=== PATIENT | female | born 1935 | race Caucasian/White ===

== ENCOUNTER → 2017-10-08 12:15 | Outpatient (CLI) | payer MEDICARE, SELFPAY ==
[2017-10-08 13:42] LABS: Erythrocyte Sedimentation Rate 18 MM/HR (0-20)
[2017-10-08 14:17] LABS: High Sensitivity CRP - Cardiac 4.5 mg/L (1.0-3.0)
== END ==
PROVIDERS: Family Provider Internal Medicine; PCP Internal Medicine; Visit Provider Ophthalmology
DX: M79.7 Fibromyalgia (principal); Z86.73 Personal history of transient ischemic attack (TIA), and cerebral infarction without residual deficits
CPT/HCPCS: 36415; 85651; 86140

== ENCOUNTER 2017-10-30 08:52 | Emergency (ER) | payer MEDICARE, SELFPAY ==
[2017-10-30 09:13] VITALS: BP 140/66; PULSE 59; RESP 13; TEMP 36.2; O2SAT 100
--- NOTE | 2017-10-30 09:31 | ED.LOWEXIN ---
HPI - Extremity Injury (Lower) General Chief Complaint: Extremity Injury, Lower Stated Complaint: pain in left hip/leg Time Seen by Provider: 10/30/17 09:16 Source: patient and family Mode of arrival: ambulatory Limitations: no limitations History of Present Illness HPI Narrative: Patient is an 82-year-old female who presents with left leg weakness. 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 Her left leg has progressively gotten much weak over over the last few weeks. This morning her knows that she needed help walking and she was holding on to things. All he saw her left arm looked funny this morning but now he does not see any difference. She has no other complaints no visual problems no upper extremity weakness. No difficulty speaking. She denies any injury or fall. Related Data Home Medications Medication Instructions Recorded Confirmed [CITRACAL W/D] 600 mg PO Q DAY #0 03/10/10 levothyroxine [Synthroid] 75 mcg PO 0600 #30 tab 09/01/16 metoclopramide HCl 5 mg PO BID #0 09/01/16 cholecalciferol (vitamin D3) 2,000 unit PO QDAY #0 12/09/16 [Vitamin D3] methylcellulose (laxative) PO HS #0 12/09/16 [Citrucel Sugar Free] multivitamin [Multiple Vitamins] 1 tab PO QDAY #0 12/09/16 vitamin B complex [B 1 tab PO QDAY #0 12/09/16 Complex-Vitamin B12] Previous Rx's Medication Instructions Recorded aspirin 325 mg PO QDAY #30 tab 09/02/16 Allergies Allergy/AdvReac Type Severity Reaction Status Date / Time iodine Allergy Severe FLUSHED, Unverified 08/25/17 12:55 HOT codeine AdvReac Severe RAPID Unverified 08/25/17 12:55 HEARTRATE/CHEST PAIN ciprofloxacin [From CIPRO] AdvReac Unknown NAUSEA/VOMI Unverified 08/25/17 12:55 TING Review of Systems Review of Systems All systems reviewed & are unremarkable except as noted in HPI and below Constitutional Denies chills, Denies fever(s), Denies lethargy and Reports weakness Cardiovascular Denies dyspnea and Denies dyspnea on exertion Respiratory Denies cough, Denies dyspnea, Denies dyspnea on exertion and Denies wheezing Gastrointestinal Gastrointestinal: Denies abdominal pain, Denies change in bowel habits, Denies diarrhea, Denies nausea and Denies vomiting Musculoskeletal Reports system reviewed and no additional complaints, except as docu and Reports as per HPI Integumentary/Breasts Denies pruritus, Denies erythema, Denies rash and Denies wounds Neurologic Reports as per HPI, Denies confusion, Denies memory loss and Reports weakness Psychiatric Denies confusion and Denies memory loss Allergic/Immunologic Denies wheezing Exam Initial Vital Signs Initial Vital Signs: Vital Signs Temperature 97.2 F L 10/30/17 09:13 Pulse Rate 59 L 10/30/17 09:13 Respiratory Rate 13 10/30/17 09:13 Blood Pressure 140/66 H 10/30/17 09:13 Pulse Oximetry 100 10/30/17 09:13 Const General: cooperative and healthy appearing Nutritional Appearance: average body habitus Orientation: alert and awake Neck Neck: normal visual inspection, trachea midline, No lymphadenopathy, No midline deformity and No JVD Lymphatic: No lymphedema Chest Chest: normal inspection of the chest Resp Effort & Inspection: normal respiratory effort, able to speak in complete sentences, no respiratory distress and no use of accessory muscles Auscultation: clear to auscultation bilaterally, no rales, no rhonchi and no wheezes Cardio Rate: regular rate Rhythm: regular rhythm Heart Sounds: no click, no gallops, no murmurs and no rubs Pulses: normal peripheral pulses GI Inspection: non-distended Palpation: soft, no hepatosplenomegaly, No guarding, No pulsatile mass and No tender Auscultation: normal bowel sounds Skin General: no rashes or lesions noted, No jaundice and No petechiae Neuro General: alert, awake and oriented x3 Cranial Nerves: CN's II-XI intact bilaterally Cognition: normal cognition Speech: speech normal Motor: strength abnormal (left leg falls to bed) Coordination: [id number] test normal Extrem General: full ROM, no clubbing, cyanosis or edema, no pedal edema and no calf tenderness Left lower extremity: normal to inspection, full ROM and normal capillary refill; hip/thigh not examined, knee not examined, lower leg not examined, ankle not examined and foot not examined Scores NIH Stroke Scale Level of Conciousness: Alert, keenly responsive Ask month/age: Answers both questions correctly. Open/close eyes, close hand: Performs both tasks correctly Best gaze horizontal: Normal Visual martins: No visual loss Facial palsy: Normal symetrical movement Left arm drift: No drift for full 10 sec Right arm drift: No drift for full 10 sec Left leg drift: Drifts down, not to bed Right leg drift: No drift for full 10 sec Limb ataxia: Absent Sensory on face/arms/legs: Normal, no sensory loss Best language: No aphasia, normal Dysarthria: Normal Extinction or inattention: No abnormality Total NIH Stroke scale score: 1 Course Orders Ordered: ED Orders 10/30/17 09:57 EKG-12 Lead Stat 10/30/17 09:59 CT head/brain wo con Stat 10/30/17 10:20 Complete Blood Count AUTO DIFF Stat Comprehensive Metabolic Panel Stat Troponin with CK Cardiac Panel Stat Discontinued Medications Sodium Chloride (Normal Saline 0.9%) 1,000 mls @ 1,000 mls/hr IV BOLUS ONE Stop: 10/30/17 10:56 Last Infusion: 10/30/17 12:39 Dose: 0 mls/hr Admin: 10/30/17 11:27 Dose: 1,000 mls/hr Vital Signs - 8 hr 10/30/17 11:08 10/30/17 11:42 10/30/17 12:36 Pulse Rate 58 L 55 L Respiratory Rate 13 16 16 Blood Pressure Blood Pressure [Left Arm] 135/50 H 126/54 H Pulse Oximetry 96 97 97 10/30/17 12:40 Pulse Rate 53 L Respiratory Rate 18 Blood Pressure 141/74 H Blood Pressure [Left Arm] Pulse Oximetry 98 MDM - Extremity Injury (Lower) Lab Data Attestation: I reviewed the patient's lab results. Result diagrams: 10/30/17 10:20 10/30/17 10:20 Lab Results 10/30/17 10/30/17 Range/Units 10:20 10:20 WBC 6.6 (4.5-11.0) X10^3/uL RBC 4.11 (4.0-5.2) X10^6/uL Hgb 12.0 (12.0-16.0) g/dL Hct 35.6 L (36-46) % MCV 86.6 (80-100) fL MCH 29.1 (26-34) PG MCHC 33.6 (30-36) % RDW 13.5 (11.6-14.8) % Plt Count 220 (150-400) X10^3/uL Neut % (Auto) 56.6 (50-75) % Lymph % (Auto) 30.2 (25-40) % [place] % (Auto) 9.6 (3-14) % Eos % (Auto) 2.6 (2-4) % Baso % (Auto) 1.0 (0-2) % Neut # (Auto) 3800 (6054-4716) /uL Sodium 141 (137-145) mmol/L Potassium 4.3 (3.4-5.1) mmol/L Chloride 101 (98-107) mmol/L Carbon Dioxide 31 (22-32) mmol/L BUN 29 H (7-17) mg/dL Creatinine 0.90 (0.52-1.04) mg/dL Estimated GFR > 60.0 (>60) mL/min BUN/Creatinine Ratio 32.2 H (6-22) Glucose 94 (80-110) mg/dL Calcium 9.4 (8.4-10.2) mg/dL Total Bilirubin 0.4 (0.2-1.3) mg/dL AST 24 (14-36) IU/L ALT 25 (9-52) IU/L Alkaline Phosphatase 27 L (38-126) U/L Total Creatine Kinase 29 L (30-135) U/L Troponin I < 0.012 (0.01-0.034) ng/mL Total Protein 6.4 (6.3-8.2) g/dL Albumin 3.9 (3.5-5.0) g/dL Globulin 2.5 (1.7-4.1) g/dL Albumin/Globulin Ratio 1.6 (1.0-2.8) Imaging Data CT scan - head: Radiologist's impression: PROCEDURE: CT HEAD/BRAIN WO CON INDICATIONS: Left leg weakness, progressively getting worse history of cva. TECHNIQUE: Noncontrast 4.5 mm thick angled axial sections acquired from the foramen magnum to the vertex, with coronal and sagittal reformats. For radiation dose reduction, the following was used: automated exposure control, adjustment of mA and/or kV according to patient size. COMPARISON: [facility], CT, HEAD WITHOUT CONTRAST, 02/23/2017, 12:14. [facility], MR, STROKE PROTOCOL, 09/01/2016, 15:54. [facility], CT, HEAD WITHOUT CONTRAST, 09/01/2016, 12:48. FINDINGS: Image quality: Excellent. CSF spaces: Basal cisterns are patent. No extra-axial fluid collections. The ventricles are symmetric in size and shape. Brain: No intracranial bleeds or masses. There is cerebral volume loss for age, with resultant ventricular and sulcal prominence. There are periventricular and deep white matter chronic small vessel ischemic changes. There is intracranial internal carotid artery and vertebral artery atherosclerosis. Skull and face: Calvarium and visualized facial bones appear intact, without suspicious lesions. Sinuses: Visualized sinuses and mastoids are clear. IMPRESSION: No acute intracranial disease process. Dictated by: Juli Pearson MD, PhD on 10/30/2017 at 10:51 ECG Data Attestation: I personally reviewed and interpreted this ECG as follows: Prior ECG tracings: available for review Interpretation: Normal sinus rhythm rate 54 with T-wave inversions noted in lead 3 similar to previous no acute ST changes normal intervals MDM Narrative Medical decision making narrative: Patient has no acute or focal deficits. This seems to be her left leg progressively getting weaker. No electrolyte abnormalities or sign of infection. She is ambulatory. We discussed how she may need assistance with a cane or walker. Discharge Plan Departure Patient Disposition: Home, Self-Care Clinical Impression: Left leg weakness Discharge Date/Time: 10/30/17 12:40 Interventions: ED Discharge Assessment Last Done: 10/30/17 12:40 Instructions: How to Prevent Falls, DI for Muscle Weakness Activity Restrictions/Additional Instructions: *You have been diagnosed with left leg weakness *What to do: Blood work in CT do not show abnormality. This is likely just progression of left leg weakness. Recommend using a cane or a walker with ambulation *Continue to take medications as directed *Follow up with your primary care provider in 2-3 days *Return to ER if you should have any new, worsening or concerning symptoms Prescriptions: No Action [CITRACAL W/D] 600 mg PO Q DAY Qty: 0 RF: 0 metoclopramide HCl 5 MG tablet 5 mg PO BID Qty: 0 RF: 0 levothyroxine [Synthroid] 75 MCG tablet 75 mcg PO 0600 Qty: 30 RF: 0 aspirin 325 MG tablet,delayed release (DR/EC) 325 mg PO QDAY Qty: 30 RF: 0 cholecalciferol (vitamin D3) [Vitamin D3] 1,000 UNIT tablet 2,000 unit PO QDAY Qty: 0 RF: 0 multivitamin [Multiple Vitamins] 1 EACH tablet 1 tab PO QDAY Qty: 0 RF: 0 vitamin B complex [B Complex-Vitamin B12] 1 EACH tablet 1 tab PO QDAY Qty: 0 RF: 0 methylcellulose (laxative) [Citrucel Sugar Free] 479 GM powder PO HS Qty: 0 RF: 0 Referrals: Zachery Razo MD [Primary Care Provider] -
--- NOTE | 2017-10-30 09:59 | DI.CT.S_ITS ---
PROCEDURE: CT HEAD/BRAIN WO CON INDICATIONS: Left leg weakness, progressively getting worse history of cva. TECHNIQUE: Noncontrast 4.5 mm thick angled axial sections acquired from the foramen magnum to the vertex, with coronal and sagittal reformats. For radiation dose reduction, the following was used: automated exposure control, adjustment of mA and/or kV according to patient size. COMPARISON: [facility], CT, HEAD WITHOUT CONTRAST, 02/23/2017, 12:14. [facility], MR, STROKE PROTOCOL, 09/01/2016, 15:54. [facility], CT, HEAD WITHOUT CONTRAST, 09/01/2016, 12:48. FINDINGS: Image quality: Excellent. CSF spaces: Basal cisterns are patent. No extra-axial fluid collections. The ventricles are symmetric in size and shape. Brain: No intracranial bleeds or masses. There is cerebral volume loss for age, with resultant ventricular and sulcal prominence. There are periventricular and deep white matter chronic small vessel ischemic changes. There is intracranial internal carotid artery and vertebral artery atherosclerosis. Skull and face: Calvarium and visualized facial bones appear intact, without suspicious lesions. Sinuses: Visualized sinuses and mastoids are clear. IMPRESSION: No acute intracranial disease process. Dictated by: Juli Pearson MD, PhD on 10/30/2017 at 10:51 Approved by: Juli Pearson MD, PhD on 10/30/2017 at 10:54
[2017-10-30 10:36] LABS: Add Manual Diff / Slide Review NO; Eosinophils Percent Auto 2.6 % (2-4); Hematocrit 35.6 % (36-46); Lymphocytes Percent Auto 30.2 % (25-40); Mean Corpuscular HGB Conc 33.6 % (30-36); Mean Corpuscular Hemoglobin 29.1 PG (26-34); Mean Corpuscular Volume 86.6 fL (80-100); Monocytes Percent Auto 9.6 % (3-14); Neutrophils Absolute Auto 3800 /uL (3000-5900); Neutrophils Percent Auto 56.6 % (50-75); Platelet Count 220 X10^3/uL (150-400); Red Blood Cell Count 4.11 X10^6/uL (4.0-5.2); Red Cell Distribution Width 13.5 % (11.6-14.8); White Blood Cell Count 6.6 X10^3/uL (4.5-11.0)
[2017-10-30 10:42] LABS: Alanine Aminotransferase 25 IU/L (9-52); Albumin 3.9 g/dL (3.5-5.0); Albumin Globulin Ratio 1.6 (1.0-2.8); Alkaline Phosphatase 27 U/L (38-126); Aspartate Aminotransferase 24 IU/L (14-36); BUN Creatinine Ratio 32.2 (6-22); Bilirubin Total 0.4 mg/dL (0.2-1.3); Blood Urea Nitrogen 29 mg/dL (7-17); Calcium 9.4 mg/dL (8.4-10.2); Carbon Dioxide 31 mmol/L (22-32); Chloride 101 mmol/L (98-107); Creatine Kinase 29 U/L (30-135); Estimated Glomerular Filt Rate > 60.0 mL/min (>60); Globulin 2.5 g/dL (1.7-4.1); Glucose 94 mg/dL (80-110); HEMOLYSIS < 15 (0-50); Potassium 4.3 mmol/L (3.4-5.1); Sodium 141 mmol/L (137-145); Total Protein 6.4 g/dL (6.3-8.2)
[2017-10-30 10:54] LABS: Troponin I < 0.012 ng/mL (0.01-0.034)
[2017-10-30 11:08] VITALS: BP 135/50; PULSE 58; RESP 13; O2SAT 96
[2017-10-30] MEDS: SODIUM CHLORIDE 0.9% 1,000 ML 1000 ML IV (11:27)
[2017-10-30 11:42] VITALS: BP 126/54; PULSE 55; RESP 16; O2SAT 97
[2017-10-30 12:36] VITALS: RESP 16; O2SAT 97
[2017-10-30 12:40] VITALS: BP 141/74; PULSE 53; RESP 18; O2SAT 98
== END 2017-10-30 12:40 | disposition home or self-care (01) ==
PROVIDERS: Emergency Provider Emergency Medicine; Family Provider Internal Medicine; PCP Internal Medicine
DX: R29.898 Other symptoms and signs involving the musculoskeletal system (principal)
CPT/HCPCS: 36591; 70450; 80053; 81003; 82550; 82553; 84484; 85025; 93005; 96360; 99283; 99285

== ENCOUNTER → 2017-11-09 14:01 | Outpatient (CLI) | payer MEDICARE, SELFPAY ==
[2017-11-09 15:07] LABS: Add Manual Diff / Slide Review NO; Basophils Percent Auto 0.9 % (0-2); Eosinophils Percent Auto 2.1 % (2-4); Hemoglobin 11.9 g/dL (12.0-16.0); Mean Corpuscular Hemoglobin 29.4 PG (26-34); Mean Corpuscular Volume 86.5 fL (80-100); Monocytes Percent Auto 8.2 % (3-14); Neutrophils Absolute Auto 4600 /uL (3000-5900); Neutrophils Percent Auto 58.8 % (50-75); Platelet Count 239 X10^3/uL (150-400); Red Blood Cell Count 4.04 X10^6/uL (4.0-5.2); Red Cell Distribution Width 13.3 % (11.6-14.8); White Blood Cell Count 7.7 X10^3/uL (4.5-11.0)
[2017-11-09 15:27] LABS: Alanine Aminotransferase 28 IU/L (9-52); Albumin 4.1 g/dL (3.5-5.0); Albumin Globulin Ratio 1.5 (1.0-2.8); Alkaline Phosphatase 32 U/L (38-126); Aspartate Aminotransferase 27 IU/L (14-36); BUN Creatinine Ratio 21.7 (6-22); Bilirubin Total 0.3 mg/dL (0.2-1.3); Blood Urea Nitrogen 26 mg/dL (7-17); Calcium 9.7 mg/dL (8.4-10.2); Carbon Dioxide 29 mmol/L (22-32); Chloride 102 mmol/L (98-107); Estimated Glomerular Filt Rate 43.2 mL/min (>60); Globulin 2.7 g/dL (1.7-4.1); Glucose 110 mg/dL (80-110); HEMOLYSIS < 15 (0-50); Iron 61 ug/dL (37-170); Potassium 4.2 mmol/L (3.4-5.1); Sodium 141 mmol/L (137-145); Total Protein 6.8 g/dL (6.3-8.2)
[2017-11-09 15:38] LABS: Percent Iron Saturation 17 % (15-50); Total Iron Binding Capacity 357 ug/dL (265-497); Transferrin 296 mg/dL (206-381)
== END ==
PROVIDERS: Family Provider Internal Medicine; PCP Internal Medicine; Visit Provider Internal Medicine
DX: F32.9 Major depressive disorder, single episode, unspecified (principal); D64.9 Anemia, unspecified; E78.00 Pure hypercholesterolemia, unspecified; E03.9 Hypothyroidism, unspecified
CPT/HCPCS: 36415; 80053; 83540; 83550; 84443; 85025

== ENCOUNTER → 2017-11-12 11:06 | Outpatient (CLI) | payer MEDICARE, SELFPAY ==
--- NOTE | 2017-11-12 | DI.CT.S_ITS ---
PROCEDURE: CT LUMBAR SPINE WO CON INDICATIONS: LOW BACK PAIN TECHNIQUE: Noncontrast 3 mm thick sections acquired from the T12 level to the sacrum. Sagittal and coronal reformats were constructed. For radiation dose reduction, the following was used: automated exposure control. COMPARISON: [facility], CR, L-SPINE MINIMUM 4 VIEWS, 12/21/2011, 14:36. [facility], MR, L-SPINE WITHOUT CONTRAST, 02/14/2013, 17:13. [facility], CR, L-SPINE MINIMUM 4 VIEWS, 03/13/2016, 12:04. [facility], MR, L-SPINE WITHOUT CONTRAST, 03/04/2016, 16:46. [facility], CR, L-SPINE 2-3 VIEWS, 02/25/2016, 12:09. FINDINGS: Image quality: Excellent. Bones: There is trace L2-L3, L3-L4 and L4-L5 retrolisthesis. Postprocedural changes compatible with L3 percutaneous vertebroplasty noted. Postsurgical changes compatible with prior right L5-S1 laminotomy noted. Postsurgical changes compatible with L5-S1 effusion noted. L5-S1 posterior fixation hardware is intact. No lucency is identified at the bone hardware interface. No acute vertebral body compression fractures. No suspicious lytic or blastic bony lesions. Central spinal caliber is of normal overall caliber. No pars defects. T12-L1: Slight loss of disc height. Mild, diffuse disc bulge. Mild bilateral facet hypertrophy. Mild narrowing of the central canal. No neural foraminal narrowing. No definite neural impingement. L1-L2: Slight loss of disc height. Mild, diffuse disc bulge. Right central disc protrusion. Mild bilateral facet hypertrophy. Mild to moderate narrowing of the central canal. No neural foraminal narrowing. No definite neural impingement. L2-L3: Loss of disc height. Vacuum disc phenomenon. Moderate, diffuse disc bulge. Mild facet hypertrophy. Moderate narrowing of the central canal. Moderate right and mild left neural foraminal narrowing. No definite neural impingement. L3-L4: Disc height is normal. Moderate, diffuse disc bulge. Mild to moderate facet and mild ligamentum flavum hypertrophy. Moderate narrowing of the central canal. Moderate right and mild left neural foraminal narrowing. No definite neural impingement. L4-L5: Disc height is normal. Moderate, diffuse disc bulge. Moderate facet and moderate ligamentum flavum hypertrophy. Moderate to severe narrowing of the central canal. Moderate to severe right and severe left neural foraminal narrowing with slight flattened deformity of the exiting left L4 nerve root. L5-S1: Status post fusion. Moderate bilateral facet hypertrophy. Moderate narrowing of the central canal. Moderate right and mild left neural foraminal narrowing. No definite neural impingement. Soft tissues: No retroperitoneal masses or hematomas. Visualized aorta is normal in caliber. Scattered atherosclerotic calcifications involving the abdominal and pelvic vasculature. Partially visualized and only partially characterized right renal cyst. IMPRESSION: 1. Postsurgical changes. 2. Multilevel degenerative disc disease. 3. Multilevel facet arthropathy. 4. Moderate to severe L4-L5 central canal narrowing. Moderate L2-L3, L3-L4 and L5-S1 central canal narrowing. Mild to moderate L1-L2 central canal narrowing. Mild T12-L1 central canal narrowing. 5. Moderate to severe right and severe left L4-L5 neural foraminal narrowing. Moderate right and mild left L2-L3, L3-L4 and L5-S1 neural foraminal narrowing. 5. Slight flattened deformity of the exiting left L4 nerve root secondary to neural foraminal narrowing. Please correlate with clinical data. Dictated by: Juli Peasron MD, PhD on 11/12/2017 at 16:05 Approved by: Juli Pearson MD, PhD on 11/12/2017 at 16:13
== END ==
PROVIDERS: Family Provider Internal Medicine; PCP Internal Medicine; Visit Provider Student in an Organized Health Care Education/Training Program
DX: M54.5 Low back pain (principal); M51.36 Other intervertebral disc degeneration, lumbar region; M47.816 Spondylosis without myelopathy or radiculopathy, lumbar region
CPT/HCPCS: 72131

== ENCOUNTER → 2017-12-01 12:42 | Outpatient (CLI) | payer MEDICARE, SELFPAY ==
--- NOTE | 2017-12-01 | DI.MRI.S_ITS ---
PROCEDURE: MR LUMBAR SPINE WO CON INDICATIONS: ABNORMALITIES OF GAIT AND MOBILITY TECHNIQUE: Noncontrast sagittal T1 spin echo and T2 fast echo, sagittal STIR, axial T1 and T2 fast spin echo through the lumbar spine. In cases with scoliosis, additional coronal T2 fast spin echo may be performed. COMPARISON: [facility], MR, L-SPINE WITHOUT CONTRAST, 03/04/2016, 16:46. [facility], CT, CT LUMBAR SPINE WO CON, 11/12/2017, 11:09. [facility], CR, L-SPINE MINIMUM 4 VIEWS, 03/13/2016, 12:04. [facility], CR, L-SPINE 2-3 VIEWS, 02/25/2016, 12:09. FINDINGS: Image quality: Excellent. Alignment and Curvature: The same numbering system that was employed on prior CT report will be employed on the current examination. There is loss of normal lumbar lordosis. There is mild grade 1 retrolisthesis of L2 on L3 and L4 on L5. Bone Marrow: Marrow is of normal overall signal. No acute vertebral body compression fractures. Bony cement injection at L3 has been performed. L5-S1 fusion has been performed with paired posterior rods and pedicle screws. There is mild reactive signal within the endplates adjacent to the T12-L1, L1-L2, and L2-L3 intervertebral discs. Spinal Cord: Conus medullaris terminates at the mid L1 level. Visualized cord demonstrates normal signal and size. Paraspinous Soft Tissues: No paravertebral masses. T12-L1: Moderate disc desiccation and mild diffuse disc bulge. Mild facet hypertrophy and ligamentum flavum hypertrophy bilaterally. Mild canal stenosis. No foraminal stenosis. No change. L1-L2: Moderate disc desiccation and mild diffuse disc bulge with small superimposed right paracentral protrusion. Bilateral facet and ligamentum flavum hypertrophy. Mild canal stenosis. No foraminal stenosis. No change. L2-L3: Moderate disc height loss and desiccation, as well as moderate diffuse disc bulge. Mild facet and ligamentum hypertrophy. Epidural lipomatosis. Increased, moderate canal stenosis. Mild foraminal stenosis bilaterally. L3-L4: Moderate disc desiccation and mild diffuse disc bulge. Mild facet hypertrophy bilaterally. Mild canal stenosis. Mild bilateral foraminal stenosis no change. L4-L5: Moderate disc desiccation and moderate diffuse disc bulge. Moderate facet and ligamentum flavum hypertrophy bilaterally. Mild canal stenosis. Moderate foraminal stenosis bilaterally. No change. L5-S1: Status post fusion. Bilateral facet hypertrophy. No significant canal stenosis. Mild bilateral foraminal stenosis. No change. IMPRESSION: 1. Multilevel degenerative disc and facet disease, as well as epidural lipomatosis and ligamentum flavum hypertrophy. 2. Postsurgical sequelae L5-S1, with no evidence of recurrent canal stenosis, and no change in mild bilateral foraminal stenosis at L5-S1. 3. Increased, moderate canal stenosis at L2-L3. 4. Otherwise, no significant change compared to 10.19.16. Dictated by: Kimi Kapoor M.D. on 12/01/2017 at 14:20 Approved by: Kimi Kapoor M.D. on 12/01/2017 at 14:36
== END ==
PROVIDERS: Family Provider Internal Medicine; PCP Internal Medicine; Visit Provider Student in an Organized Health Care Education/Training Program
DX: M51.36 Other intervertebral disc degeneration, lumbar region (principal); R26.89 Other abnormalities of gait and mobility; M48.07 Spinal stenosis, lumbosacral region; M48.061 Spinal stenosis, lumbar region without neurogenic claudication; Z98.1 Arthrodesis status
CPT/HCPCS: 72148

== ENCOUNTER → 2018-03-14 14:07 | Outpatient (CLI) | payer MEDICARE, SELFPAY ==
--- NOTE | 2018-03-14 14:11 | DI.RAD.S_ITS ---
PROCEDURE: XR FOOT LT MIN 3V INDICATIONS: LEFT FOOT PAIN TECHNIQUE: 3 views of the foot were acquired. COMPARISON: [facility], , FOOT 3V RIGHT, 08/12/2011, 9:35. FINDINGS: Bones: No fractures or dislocations. No suspicious bony lesions. Soft tissues: No tibiotalar joint effusion. Achilles tendon appears normal. IMPRESSION: No trauma found. Dictated by: Leonardo Mckeon M.D. on 03/14/2018 at 15:07 Approved by: Leonardo Mckeon M.D. on 03/14/2018 at 15:07
[2018-03-14 14:41] LABS: Add Manual Diff / Slide Review NO; Basophils Percent Auto 0.7 % (0-2); Eosinophils Percent Auto 2.1 % (2-4); Hematocrit 33.4 % (36-46); Hemoglobin 11.1 g/dL (12.0-16.0); Lymphocytes Percent Auto 25.4 % (25-40); Mean Corpuscular HGB Conc 33.3 % (30-36); Mean Corpuscular Hemoglobin 28.9 PG (26-34); Mean Corpuscular Volume 86.9 fL (80-100); Monocytes Percent Auto 7.2 % (3-14); Neutrophils Absolute Auto 5100 /uL (3000-5900); Neutrophils Percent Auto 64.6 % (50-75); Platelet Count 242 X10^3/uL (150-400); Red Blood Cell Count 3.84 X10^6/uL (4.0-5.2); Red Cell Distribution Width 13.4 % (11.6-14.8); White Blood Cell Count 7.8 X10^3/uL (4.5-11.0)
[2018-03-14 14:54] LABS: HEMOLYSIS < 15 (0-50); Iron 41 ug/dL (37-170)
[2018-03-14 15:05] LABS: Percent Iron Saturation 13 % (15-50); Total Iron Binding Capacity 315 ug/dL (265-497); Transferrin 269 mg/dL (206-381)
[2018-03-14 15:06] LABS: Erythrocyte Sedimentation Rate 15 MM/HR (0-20)
== END ==
PROVIDERS: Family Provider Internal Medicine; PCP Internal Medicine; Visit Provider Internal Medicine
DX: M15.0 Primary generalized (osteo)arthritis (principal); M79.672 Pain in left foot; D64.9 Anemia, unspecified
CPT/HCPCS: 36415; 73630; 83540; 83550; 85025; 85651

== ENCOUNTER → 2018-08-15 15:00 | Outpatient (CLI) | payer MEDICARE, SELFPAY ==
--- NOTE | 2018-08-15 | DI.RAD.S_ITS ---
PROCEDURE: XR HIP W PEL IF DONE LT MIN 4V INDICATIONS: LEFT HIP PAIN TECHNIQUE: AP pelvis with lateral view(s) of the left and right hip(s). COMPARISON: [facility], , HIPBILAT 3TO4V W PEL IF PERFD, 03/01/2017, 9:54. FINDINGS: Bones: No fractures or dislocations. Pelvic ring appears intact. No suspicious bony lesions. Bilateral moderate hip joint degeneration which appears unchanged since 03/01/17. Lower lumbar spinal fixation hardware as before. Soft tissues: The visualized bowel gas pattern is normal. No suspicious soft tissue calcifications. IMPRESSION: Unchanged bilateral moderate hip joint degeneration since 03/01/17 Dictated by: Denis Hwang M.D. on 08/15/2018 at 16:28 Approved by: Denis Hwang M.D. on 08/15/2018 at 16:30
== END ==
PROVIDERS: PCP Internal Medicine; Visit Provider Internal Medicine
DX: M25.552 Pain in left hip (principal); M16.0 Bilateral primary osteoarthritis of hip
CPT/HCPCS: 73522

== ENCOUNTER → 2018-09-22 10:47 | Outpatient (CLI) | payer MEDICARE, SELFPAY ==
--- NOTE | 2018-09-22 | DI.RAD.S_ITS ---
PROCEDURE: XR CHEST 2V INDICATIONS: Acute bronchitis, unspecified TECHNIQUE: 2 views of the chest were acquired. COMPARISON: [facility], , CHEST 1 VIEW, 02/23/2017, 12:05. FINDINGS: Surgical changes and devices: None. Lungs and pleura: Lungs are clear. No pleural effusions or pneumothorax. Mediastinum: Mediastinal contours are normal. Heart size is normal. Bones and chest wall: No suspicious bony abnormalities. Soft tissues appear unremarkable. IMPRESSION: No acute disease Dictated by: Denis Hwang M.D. on 09/22/2018 at 12:20 Approved by: Denis Hwang M.D. on 09/22/2018 at 12:21
== END ==
PROVIDERS: PCP Internal Medicine; Visit Provider Internal Medicine
DX: J20.9 Acute bronchitis, unspecified (principal)
CPT/HCPCS: 71046

== ENCOUNTER → 2018-09-27 10:59 | Outpatient (CLI) | payer MEDICARE, SELFPAY ==
--- NOTE | 2018-09-27 | DI.MG.S_ITS ---
BILATERAL DIGITAL SCREENING MAMMOGRAM 3D/2D WITH CAD: 09/27/2018 CLINICAL: Routine screening. Comparison is made to exams dated: 09/06/2014 mammogram, 08/26/2011 mammogram, and 05/23/2004 mammogram - [facility]. There are scattered fibroglandular elements in both breasts. Current study was also evaluated with a Computer Aided Detection (CAD) system. There are benign calcifications in both breasts. No significant masses, calcifications, or other findings are seen in either breast. There has been no significant interval change. IMPRESSION: There is no mammographic evidence of malignancy. A 1 year screening mammogram is recommended. This exam was interpreted at Station ID: [id number]. NOTE: For mammograms, a report in lay terms will be sent to the patient. Approximately 15% of breast malignancies will not be visualized mammographically. In the management of a palpable breast mass, a negative mammogram must not discourage biopsy of a clinically suspicious lesion. Electronically Signed By: Lenny sánchez/yessenia:09/27/2018 18:12:50 letter sent: Normal Exam ACR BI-RADS Category 2: Benign Finding(s) [id number]
== END ==
PROVIDERS: PCP Internal Medicine; Visit Provider Internal Medicine
DX: Z12.31 Encounter for screening mammogram for malignant neoplasm of breast (principal)
CPT/HCPCS: 77063; 77067

== ENCOUNTER → 2018-11-12 14:38 | Outpatient (CLI) | payer MEDICARE, SELFPAY ==
--- NOTE | 2018-11-12 | DI.RAD.S_ITS ---
PROCEDURE: XR FOOT LT MIN 3V INDICATIONS: left foot pain no trauma TECHNIQUE: 3 views of the foot were acquired. COMPARISON: [facility], CR, XR FOOT LT MIN 3V, 03/14/2018, 13:48. FINDINGS: Bones: No fractures or dislocations. No suspicious bony lesions. Severe degenerative changes of the midfoot joints are present with prominent joint space narrowing and subchondral sclerosis. There moderate degenerative changes of the first metatarsophalangeal joint. There is a small Achilles spur. Soft tissues: No tibiotalar joint effusion. Achilles tendon appears normal in thickness. 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 Dictated by: Avelino oRsen M.D. on 11/12/2018 at 14:58 Approved by: Avelino Rosen M.D. on 11/12/2018 at 14:59
== END ==
PROVIDERS: PCP Internal Medicine; Visit Provider Internal Medicine
DX: M79.672 Pain in left foot (principal); M19.072 Primary osteoarthritis, left ankle and foot
CPT/HCPCS: 73630

== ENCOUNTER → 2018-12-15 16:46 | Outpatient (CLI) | payer MEDICARE, SELFPAY ==
[2018-12-15 17:25] LABS: Add Manual Diff / Slide Review NO; Basophils Absolute Auto 100 /uL (0-100); Basophils Percent Auto 0.7 % (0-2); Eosinophils Absolute Auto 200 /uL (0-450); Eosinophils Percent Auto 2.1 % (2-4); Hematocrit 32.6 % (36-46); Hemoglobin 10.9 g/dL (12.0-16.0); Lymphocytes Absolute Auto 2300 /uL (1100-4500); Lymphocytes Percent Auto 29.3 % (25-40); Mean Corpuscular HGB Conc 33.5 % (30-36); Mean Corpuscular Hemoglobin 28.8 PG (26-34); Mean Corpuscular Volume 86.1 fL (80-100); Monocytes Absolute Auto 700 /uL (0-900); Monocytes Percent Auto 8.7 % (3-14); Neutrophils Absolute Auto 4600 /uL (1500-7000); Neutrophils Percent Auto 59.2 % (50-75); Platelet Count 249 X10^3/uL (150-400); Red Blood Cell Count 3.78 X10^6/uL (4.0-5.2); White Blood Cell Count 7.8 X10^3/uL (4.5-11.0)
[2018-12-15 17:46] LABS: Alanine Aminotransferase 20 IU/L (9-52); Albumin 3.8 g/dL (3.5-5.0); Albumin Globulin Ratio 1.7 (1.0-2.8); Alkaline Phosphatase 31 U/L (38-126); Aspartate Aminotransferase 26 IU/L (14-36); Bilirubin Total 0.3 mg/dL (0.2-1.3); Blood Urea Nitrogen 33 mg/dL (7-17); Calcium 9.6 mg/dL (8.4-10.2); Carbon Dioxide 29 mmol/L (22-32); Chloride 108 mmol/L (98-107); Estimated Glomerular Filt Rate 47.7 mL/min (>60); Globulin 2.3 g/dL (1.7-4.1); Glucose 116 mg/dL (80-110); HEMOLYSIS < 15 (0-50); Potassium 4.9 mmol/L (3.4-5.1); Sodium 142 mmol/L (137-145); Total Protein 6.1 g/dL (6.3-8.2)
[2018-12-15 18:29] LABS: TSH w/ Reflex to FT4 2.78 uIU/mL (0.47-4.68)
== END ==
PROVIDERS: PCP Internal Medicine; Visit Provider Internal Medicine
DX: M15.0 Primary generalized (osteo)arthritis (principal); E03.9 Hypothyroidism, unspecified; D64.9 Anemia, unspecified
CPT/HCPCS: 36415; 80053; 84443; 85025

== ENCOUNTER → 2019-01-03 15:02 | Outpatient (CLI) | payer MEDICARE, SELFPAY ==
--- NOTE | 2019-01-03 | DI.US.S_ITS ---
PROCEDURE: US PERIPH VENOUS LOW EXTREM RT INDICATIONS: RIGHT LEG SWELLING AND PAIN TECHNIQUE: Real-time imaging, as well as color and pulse Doppler interrogation, were performed of the lower extremity deep veins from the inguinal ligament to the popliteal fossa. COMPARISON: None. FINDINGS: The common femoral, femoral and popliteal veins are normally compressible, and free of intraluminal thrombus. Color and pulse Doppler demonstrate normal phasic intraluminal flow. There is normal augmentation response to distal compression maneuver. A presumed right calf hematoma measuring 18.2 x 2.7 x 1.0 cm IMPRESSION: No evidence of deep venous thrombosis. Right calf hematoma as above. Dictated by: Denis Hwang M.D. on 01/03/2019 at 17:18 Approved by: Denis Hwang M.D. on 01/03/2019 at 17:18
== END ==
PROVIDERS: PCP Internal Medicine; Visit Provider Internal Medicine
DX: M79.89 Other specified soft tissue disorders (principal); S80.11XA Contusion of right lower leg, initial encounter; M79.604 Pain in right leg
CPT/HCPCS: 93971

== ENCOUNTER → 2019-02-09 14:50 | Outpatient (CLI) | payer MEDICARE, SELFPAY ==
[2019-02-09 15:38] LABS: Add Manual Diff / Slide Review NO; Basophils Absolute Auto 100 /uL (0-100); Basophils Percent Auto 0.9 % (0-2); Eosinophils Absolute Auto 200 /uL (0-450); Eosinophils Percent Auto 2.1 % (2-4); Hematocrit 34.4 % (36-46); Hemoglobin 11.7 g/dL (12.0-16.0); Lymphocytes Absolute Auto 2400 /uL (1100-4500); Lymphocytes Percent Auto 29.6 % (25-40); Mean Corpuscular HGB Conc 34.1 % (30-36); Mean Corpuscular Hemoglobin 29.1 PG (26-34); Mean Corpuscular Volume 85.1 fL (80-100); Monocytes Absolute Auto 700 /uL (0-900); Monocytes Percent Auto 8.6 % (3-14); Neutrophils Absolute Auto 4900 /uL (1500-7000); Neutrophils Percent Auto 58.8 % (50-75); Platelet Count 241 X10^3/uL (150-400); Red Blood Cell Count 4.04 X10^6/uL (4.0-5.2); White Blood Cell Count 8.3 X10^3/uL (4.5-11.0)
[2019-02-09 16:00] LABS: HEMOLYSIS < 15 (0-50); Iron 66 ug/dL (37-170)
[2019-02-09 16:04] LABS: Reticulocyte Count, Percent 1.3 % (1.06-2.63)
[2019-02-09 16:10] LABS: Percent Iron Saturation 19 % (15-50); Total Iron Binding Capacity 350 ug/dL (265-497); Transferrin 288 mg/dL (206-381)
== END ==
PROVIDERS: PCP Internal Medicine; Visit Provider Internal Medicine
DX: D64.9 Anemia, unspecified (principal)
CPT/HCPCS: 36415; 83540; 83550; 85025; 85045

== ENCOUNTER → 2019-04-20 09:25 | Outpatient (CLI) | payer MEDICARE, SELFPAY ==
[2019-04-20 10:40] LABS: Add Manual Diff / Slide Review NO; Basophils Absolute Auto 0 /uL (0-100); Basophils Percent Auto 0.5 % (0-2); Eosinophils Absolute Auto 300 /uL (0-450); Eosinophils Percent Auto 3.7 % (2-4); Hemoglobin 12.5 g/dL (12.0-16.0); Lymphocytes Absolute Auto 2100 /uL (1100-4500); Lymphocytes Percent Auto 26.6 % (25-40); Mean Corpuscular HGB Conc 33.7 % (30-36); Mean Corpuscular Hemoglobin 28.9 PG (26-34); Mean Corpuscular Volume 85.6 fL (80-100); Monocytes Absolute Auto 700 /uL (0-900); Monocytes Percent Auto 8.4 % (3-14); Neutrophils Absolute Auto 4800 /uL (1500-7000); Neutrophils Percent Auto 60.8 % (50-75); Platelet Count 193 X10^3/uL (150-400); Red Blood Cell Count 4.32 X10^6/uL (4.0-5.2); Red Cell Distribution Width 14.1 % (11.6-14.8); White Blood Cell Count 7.8 X10^3/uL (4.5-11.0)
[2019-04-20 10:59] LABS: Alanine Aminotransferase 21 IU/L (<35); Albumin 4.1 g/dL (3.5-5.0); Albumin Globulin Ratio 1.8 (1.0-2.8); Alkaline Phosphatase 47 U/L (38-126); Aspartate Aminotransferase 32 IU/L (14-36); BUN Creatinine Ratio 24.5 (6-22); Bilirubin Total 0.5 mg/dL (0.2-1.3); Blood Urea Nitrogen 27 mg/dL (7-17); Calcium 9.8 mg/dL (8.4-10.2); Carbon Dioxide 30 mmol/L (22-32); Chloride 105 mmol/L (98-107); Cholesterol 266 mg/dL (140-199); Estimated Glomerular Filt Rate 47.6 mL/min (>60); Globulin 2.3 g/dL (1.7-4.1); Glucose 96 mg/dL (80-110); HDL Cholesterol 44 mg/dL (40-60); HEMOLYSIS < 15 (0-50); LDL Cholesterol Calculated 176 mg/dL (<100); Potassium 4.6 mmol/L (3.4-5.1); Sodium 141 mmol/L (137-145); Total Protein 6.4 g/dL (6.3-8.2); Triglycerides 230 mg/dL (35-150)
== END ==
PROVIDERS: PCP Internal Medicine; Visit Provider Internal Medicine
DX: M15.0 Primary generalized (osteo)arthritis (principal); E78.00 Pure hypercholesterolemia, unspecified; D64.9 Anemia, unspecified
CPT/HCPCS: 36415; 80053; 80061; 85025

== ENCOUNTER → 2019-04-21 10:05 | Outpatient (CLI) | payer MEDICARE, SELFPAY ==
[2019-04-21 10:50] LABS: Magnesium 2.1 mg/dL (1.6-2.3)
[2019-04-21 11:21] LABS: Thyroid Stimulating Hormone 2.56 uIU/mL (0.47-4.68)
== END ==
PROVIDERS: Family Provider Internal Medicine; PCP Internal Medicine; Visit Provider Internal Medicine Cardiovascular Disease
DX: I49.1 Atrial premature depolarization (principal)
CPT/HCPCS: 83735; 84443

== ENCOUNTER 2019-04-23 11:56 | Emergency (ER) | payer MEDICARE, SELFPAY ==
[2019-04-23] VITALS (9 sets, daily range): BP systolic 149–166; BP diastolic 59–87; PULSE 55–80; RESP 12–18; TEMP 36.6; O2SAT 95–99; BMI 30.8
--- NOTE | 2019-04-23 12:16 | DI.RAD.S_ITS ---
PROCEDURE: XR CHEST 2V INDICATIONS: cough w/ chest pain TECHNIQUE: 2 views of the chest were acquired. COMPARISON: [facility], CR, XR CHEST 2V, 09/22/2018, 10:48. FINDINGS: Surgical changes and devices: None. Lungs and pleura: Lungs are clear. No pleural effusions or pneumothorax. Mediastinum: Mediastinal contours are normal. Heart size is normal. Bones and chest wall: No suspicious bony abnormalities. Soft tissues appear unremarkable. IMPRESSION: 1. No acute cardiopulmonary disease. Dictated by: Jatinder Zaldivar M.D. on 04/23/2019 at 11:43 Approved by: Jatinder Zaldivar M.D. on 04/23/2019 at 11:44
[2019-04-23 12:49] LABS: Add Manual Diff / Slide Review NO; Basophils Absolute Auto 100 /uL (0-100); Basophils Percent Auto 0.8 % (0-2); Eosinophils Absolute Auto 200 /uL (0-450); Eosinophils Percent Auto 2.9 % (2-4); Hemoglobin 12.1 g/dL (12.0-16.0); Lymphocytes Absolute Auto 2300 /uL (1100-4500); Mean Corpuscular HGB Conc 33.5 % (30-36); Mean Corpuscular Hemoglobin 28.7 PG (26-34); Mean Corpuscular Volume 85.8 fL (80-100); Monocytes Absolute Auto 700 /uL (0-900); Monocytes Percent Auto 8.6 % (3-14); Neutrophils Absolute Auto 5100 /uL (1500-7000); Neutrophils Percent Auto 60.7 % (50-75); Platelet Count 196 X10^3/uL (150-400); Red Cell Distribution Width 14.1 % (11.6-14.8); White Blood Cell Count 8.4 X10^3/uL (4.5-11.0)
[2019-04-23 12:56] LABS: INR 0.9 (0.9-1.3); Prothrombin Time 10.4 SECONDS (10.1-12.7)
[2019-04-23 12:59] LABS: PTT Partial Thromboplastin Tim 35 SECONDS (26.4-36.2)
[2019-04-23 13:00] LABS: Alanine Aminotransferase 19 IU/L (<35); Albumin 4.1 g/dL (3.5-5.0); Albumin Globulin Ratio 1.6 (1.0-2.8); Alkaline Phosphatase 51 U/L (38-126); Aspartate Aminotransferase 31 IU/L (14-36); Bilirubin Total 0.4 mg/dL (0.2-1.3); Blood Urea Nitrogen 26 mg/dL (7-17); Calcium 9.6 mg/dL (8.4-10.2); Carbon Dioxide 29 mmol/L (22-32); Chloride 103 mmol/L (98-107); Creatine Kinase 28 U/L (30-135); Estimated Glomerular Filt Rate 53.1 mL/min (>60); Globulin 2.6 g/dL (1.7-4.1); Glucose 91 mg/dL (80-110); HEMOLYSIS < 15 (0-50); Lipase 71 U/L (23-300); Potassium 4.6 mmol/L (3.4-5.1); Sodium 139 mmol/L (137-145); Total Protein 6.7 g/dL (6.3-8.2)
[2019-04-23 13:12] LABS: Troponin I < 0.012 ng/mL (0.01-0.034)
--- NOTE | 2019-04-23 13:37 | PC.NURSE ---
Pt walked to BR, Pt drifted as walking.
--- NOTE | 2019-04-23 14:05 | ED_ITS ---
HPI - Chest Pain General Chief Complaint: Chest Pain Stated Complaint: chest pain Time Seen by Provider: 04/23/19 12:40 Source: patient Mode of arrival: Ambulatory Limitations: no limitations History of Present Illness HPI narrative: Patient comes emergency department complaining of an episode of chest pain that started while she was sitting in [employer]. Patient states that she was not exerting herself in any way. She states she noticed that the pain spread across both sides of her chest and radiated into her left neck. She did not have any diaphoresis or lightheadedness. She felt mildly short of breath. No nausea. Patient denies any abdominal pain. No cough or fever. No other complaints at this time. She states that now, her symptoms are gone and she just feels tired. Patient states she has had pain like this before and is on nitroglycerin for it. However, she just saw Dr. Hurtado at the end of the week last week and a taken all of her medications that were not access to her nitro. She states that Dr. Hurtado wanted her to have a stress test in the near future, as well as to wear an event monitor, because of a dysrhythmia he detected on her EKG. Patient denies any history of AZ. No pain in her calves or swelling in her lower extremities that is new. She has chronic mild edema of her bilateral lower extremities. Related Data Home Medications Medication Instructions Recorded Confirmed [CITRACAL W/D] 600 mg PO Q DAY #0 03/10/10 levothyroxine [Synthroid] 75 mcg PO 0600 #30 tab 09/01/16 metoclopramide HCl 5 mg PO BID #0 09/01/16 cholecalciferol (vitamin D3) 2,000 unit PO QDAY #0 12/09/16 [Vitamin D3] methylcellulose (laxative) PO HS #0 12/09/16 [Citrucel Sugar Free] multivitamin [Multiple Vitamins] 1 tab PO QDAY #0 12/09/16 vitamin B complex [B 1 tab PO QDAY #0 12/09/16 Complex-Vitamin B12] Previous Rx's Medication Instructions Recorded aspirin 325 mg PO QDAY #30 tab 09/02/16 Allergies Allergy/AdvReac Type Severity Reaction Status Date / Time iodine Allergy Severe FLUSHED, Verified 04/23/19 12:03 HOT codeine AdvReac Severe RAPID Verified 04/23/19 12:03 HEARTRATE/CHEST PAIN ciprofloxacin [From CIPRO] AdvReac Unknown NAUSEA/VOMI Verified 04/23/19 12:03 TING Review of Systems Constitutional Constitutional: Denies chills, Denies fatigue, Denies fever(s), Denies frequent falls, Denies lethargy and Denies weakness Eyes Eyes: Denies change in vision, Denies eye discharge, Denies irritation and Denies loss of vision ENT Ears, Nose, Mouth, and Throat: Denies change in voice, Denies dizziness, Denies neck pain, Denies sore throat and Denies throat swelling Cardiovascular Cardiovascular: Reports chest pain, Denies irregular heart rhythm, Denies lightheadedness, Denies palpitations, Reports dyspnea (Mild), Denies dyspnea on exertion and Denies orthopnea Respiratory Respiratory: Denies cough, Reports dyspnea (Mild), Denies dyspnea on exertion and Denies wheezing Gastrointestinal Gastrointestinal: Denies abdominal pain, Denies change in bowel habits, Denies diarrhea, Denies nausea and Denies vomiting Genitourinary Genitourinary: Denies hematuria, Denies flank pain, Denies urinary incontinence and Denies urinary urgency Musculoskeletal Musculoskeletal: Denies back pain, Denies muscle weakness, Denies neck pain, Denies numbness and Denies tingling Integumentary/Breasts Skin/Breast: Denies pruritus, Denies erythema, Denies rash and Denies wounds Neurologic Neurologic: Denies behavioral changes, Denies confusion, Denies dizziness, Denies frequent falls, Denies loss of vision, Denies numbness, Denies tingling and Denies weakness Psychiatric Psychiatric: Denies anxiety, Denies behavioral changes, Denies confusion, Denies depression, Denies homicidal ideation and Denies suicidal ideation Endocrine Endocrine: Denies fatigue, Denies flushing and Denies palpitations Hematologic/Lymphatic Hematologic/Lymphatic: Denies easy bruising Allergic/Immunologic Allergic/Immunologic: Denies urticaria, Denies throat swelling and Denies wheezing Patient History Medical History CVA (cerebral vascular accident) (Acute) GI bleed (Acute) Right sided weakness (Acute) Small bowel obstruction (Acute) Exam Initial Vital Signs Initial Vital Signs: Vital Signs Temperature 97.9 F 04/23/19 12:03 Pulse Rate 59 L 04/23/19 12:03 Respiratory Rate 17 04/23/19 12:03 Blood Pressure 155/66 H 04/23/19 12:03 Pulse Oximetry 96 04/23/19 12:03 Const General: cooperative and well developed Nutritional Appearance: well nourished Orientation: alert, awake, oriented x3 and not confused [facility] Head: normocephalic and atraumatic Ears: external ears normal Nose: external nose normal and No nasal discharge Face and sinus: face symmetric and No dry mucous membranes Mouth: oral mucosae normal and moist mucous membranes Teeth and gingiva: dentition normal Eyes General: appearance normal, both eyes and all related structures Eyelids: eyelids normal Conjunctivae: conjunctivae normal Sclera: sclerae normal Pupils: PERRL EOM: EOM intact bilaterally Neck Neck: normal visual inspection, trachea midline, No lymphadenopathy, No midline deformity and No JVD Lymphatic: No lymphedema Chest Chest: normal inspection of the chest Resp Effort & Inspection: normal respiratory effort, able to speak in complete sente nces, no respiratory distress and no use of accessory muscles Auscultation: clear to auscultation bilaterally, no rales, no rhonchi and no wheezes Cardio Rate: regular rate Rhythm: regular rhythm Heart Sounds: no click, no gallops, no murmurs and no rubs Pulses: normal peripheral pulses GI Inspection: non-distended Palpation: soft, no hepatosplenomegaly, No guarding, No pulsatile mass and No tender Back/Spine/Pelvis Back: No CVA tenderness Cervical Spine: cervical ROM normal and No pain with cervical ROM Thoracic/Lumbar Spine: thoracic and lumbar spine normal to inspection Skin General: no rashes or lesions noted, No jaundice and No petechiae Neuro General: alert, oriented x3, gait normal and no focal motor deficits Speech: speech normal Extrem General: full ROM, no clubbing, cyanosis or edema, no pedal edema and no calf tenderness Psych Appearance: well kempt Mental Status: mental status grossly normal Attitude: cooperative Thought Content: normal and suicidality Judgment: judgment good Course Course Course Narrative: The patient was worked up with labs, EKG, and chest x-ray. Initial workup was unremarkable. A repeat troponin was sent and found to be negative, as well. The patient reported that her pain was the same as previous episodes except that she did not have her nitroglycerin with her. She is not show evidence at this time of having had an acute AZ, but I did advise her that she needs to put her nitroglycerin back in her purse so she can have it available, should she have an episode of chest pain. I have advised her that if she has an episode that does not brandon with nitroglycerin, she should return to the emergency department immediately. I have advised the patient call Dr. Hutrado tomorrow as he is not on-call tonight, and discuss whether her stress test should be expedited. Patient is agreeable to this plan, as is her family. We have discussed home management of symptoms, as well as the usual indications for return. Orders Ordered: ED Orders 04/23/19 12:06 EKG-12 Lead Routine 04/23/19 12:16 XR chest 2V Stat 04/23/19 12:42 Complete Blood Count AUTO DIFF Stat Comprehensive Metabolic Panel Stat Lipase Stat Partial Thromboplastin Time Stat Prothrombin Time INR Stat Troponin & CK Cardiac Panel Stat 04/23/19 15:55 Trop I [Troponin I] Stat Vital Signs Vital signs: Vital Signs - 8 hr 04/23/19 13:17 04/23/19 14:00 04/23/19 14:26 Pulse Rate 80 58 L 61 Respiratory Rate 18 15 17 Blood Pressure [Left Arm] 157/78 H 166/62 H 166/62 H Pulse Oximetry 97 95 97 04/23/19 15:30 04/23/19 16:15 04/23/19 16:30 Pulse Rate 55 L 56 L 57 L Respiratory Rate 12 15 18 Blood Pressure [Left Arm] 154/59 H 157/87 H 166/62 H Pulse Oximetry 97 04/23/19 17:00 04/23/19 17:28 Pulse Rate 56 L 57 L Respiratory Rate 16 18 Blood Pressure [Left Arm] 149/69 H Pulse Oximetry 99 MDM - Chest Pain Medical Records Data Attestation: I reviewed the patient's medical records. Lab Data Attestation: I reviewed the patient's lab results. Result diagrams: 04/23/19 12:42 04/23/19 12:42 Labs: Lab Results 04/23/19 04/23/19 04/23/19 Range/Units 12:42 12:42 12:42 WBC 8.4 (4.5-11.0) X10^3/uL RBC 4.20 (4.0-5.2) X10^6/uL Hgb 12.1 (12.0-16.0) g/dL Hct 36.0 (36-46) % MCV 85.8 (80-100) fL MCH 28.7 (26-34) PG MCHC 33.5 (30-36) % RDW 14.1 (11.6-14.8) % Plt Count 196 (150-400) X10^3/uL Neut % (Auto) 60.7 (50-75) % Lymph % (Auto) 27.0 (25-40) % [place] % (Auto) 8.6 (3-14) % Eos % (Auto) 2.9 (2-4) % Baso % (Auto) 0.8 (0-2) % Neut # (Auto) 5100 (5735-8051) /uL Lymph # (Auto) 2300 (2233-1314) /uL [place] # (Auto) 700 (0-900) /uL Eos # (Auto) 200 (0-450) /uL Baso # (Auto) 100 (0-100) /uL PT 10.4 (10.1-12.7) SECONDS INR 0.9 (0.9-1.3) APTT 35 (26.4-36.2) SECONDS Sodium 139 (137-145) mmol/L Potassium 4.6 (3.4-5.1) mmol/L Chloride 103 (98-107) mmol/L Carbon Dioxide 29 (22-32) mmol/L BUN 26 H (7-17) mg/dL Creatinine 1.00 (0.52-1.04) mg/dL Estimated GFR 53.1 L (>60) mL/min BUN/Creatinine Ratio 26.0 H (6-22) Glucose 91 (80-110) mg/dL Calcium 9.6 (8.4-10.2) mg/dL Total Bilirubin 0.4 (0.2-1.3) mg/dL AST 31 (14-36) IU/L ALT 19 (<35) IU/L Alkaline Phosphatase 51 (38-126) U/L Total Creatine Kinase 28 L (30-135) U/L CK-MB (CK-2) TNP CK-MB (CK-2) Rel Index TNP Troponin I < 0.012 (0.01-0.034) ng/mL Total Protein 6.7 (6.3-8.2) g/dL Albumin 4.1 (3.5-5.0) g/dL Globulin 2.6 (1.7-4.1) g/dL Albumin/Globulin Ratio 1.6 (1.0-2.8) Lipase 71 (23-300) U/L 04/23/19 Range/Units 15:55 WBC (4.5-11.0) X10^3/uL RBC (4.0-5.2) X10^6/uL Hgb (12.0-16.0) g/dL Hct (36-46) % MCV (80-100) fL MCH (26-34) PG MCHC (30-36) % RDW (11.6-14.8) % Plt Count (150-400) X10^3/uL Neut % (Auto) (50-75) % Lymph % (Auto) (25-40) % [place] % (Auto) (3-14) % Eos % (Auto) (2-4) % Baso % (Auto) (0-2) % Neut # (Auto) (4110-2166) /uL Lymph # (Auto) (4693-9767) /uL [place] # (Auto) (0-900) /uL Eos # (Auto) (0-450) /uL Baso # (Auto) (0-100) /uL PT (10.1-12.7) SECONDS INR (0.9-1.3) APTT (26.4-36.2) SECONDS Sodium (137-145) mmol/L Potassium (3.4-5.1) mmol/L Chloride (98-107) mmol/L Carbon Dioxide (22-32) mmol/L BUN (7-17) mg/dL Creatinine (0.52-1.04) mg/dL Estimated GFR (>60) mL/min BUN/Creatinine Ratio (6-22) Glucose (80-110) mg/dL Calcium (8.4-10.2) mg/dL Total Bilirubin (0.2-1.3) mg/dL AST (14-36) IU/L ALT (<35) IU/L Alkaline Phosphatase (38-126) U/L Total Creatine Kinase (30-135) U/L CK-MB (CK-2) CK-MB (CK-2) Rel Index Troponin I < 0.012 (0.01-0.034) ng/mL Total Protein (6.3-8.2) g/dL Albumin (3.5-5.0) g/dL Globulin (1.7-4.1) g/dL Albumin/Globulin Ratio (1.0-2.8) Lipase (23-300) U/L Imaging Data Chest x-ray: Radiologist's impression: PROCEDURE: XR CHEST 2V INDICATIONS: cough w/ chest pain TECHNIQUE: 2 views of the chest were acquired. COMPARISON: [facility], , XR CHEST 2V, 09/22/2018, 10:48. FINDINGS: Surgical changes and devices: None. Lungs and pleura: Lungs are clear. No pleural effusions or pneumothorax. Mediastinum: Mediastinal contours are normal. Heart size is normal. Bones and chest wall: No suspicious bony abnormalities. Soft tissues appear unremarkable. IMPRESSION: 1. No acute cardiopulmonary disease. Dictated by: Jatinder Zaldivar M.D. on 04/23/2019 at 11:43 Approved by: Jatindre Zaldivar M.D. on 04/23/2019 at 11:44 ECG Data Attestation: I personally reviewed and interpreted this ECG as follows: (See below) Interpretation: Twelve lead EKG performed April 23, 2018 at 12:06 p.m., as follows: Regular ventricular rhythm with a rate of 55 beats per minute DE intervals 184 millisecond QRS duration 90 millisecond QTC interval [address] T wave changes Interpretation: Sinus bradycardia with sinus arrhythmia; no signs of acute ischemia; borderline EKG as interpreted by ED MD. Discharge Plan Departure Patient Disposition: Home Clinical Impression: Chest pain Qualifiers: Chest pain type: unspecified Qualified Code(s): R07.9 - Chest pain, unspecified Discharge Date/Time: 04/23/19 17:30 Instructions: DI for Chest Pain Activity Restrictions/Additional Instructions: Your labs and EKG look good. A repeat set of cardiac enzymes was performed, and this was also negative. It is very important that you keep the nitroglycerin handy so that you can take it during an episode of chest pain like this, as you have in the past. If you have an episode of chest pain that does not go away with the nitroglycerin, you need to come to the emergency department immediately. Please call Dr. Hurtado's office 1st thing in the morning to set up a follow-up with him. Prescriptions: No Action [CITRACAL W/D] 600 mg PO Q DAY Qty: 0 RF: 0 metoclopramide HCl 5 MG tablet 5 mg PO BID Qty: 0 RF: 0 levothyroxine [Synthroid] 75 MCG tablet 75 mcg PO 0600 Qty: 30 RF: 0 aspirin 325 MG tablet,delayed release (DR/EC) 325 mg PO QDAY Qty: 30 RF: 0 cholecalciferol (vitamin D3) [Vitamin D3] 1,000 UNIT tablet 2,000 unit PO QDAY Qty: 0 RF: 0 multivitamin [Multiple Vitamins] 1 EACH tablet 1 tab PO QDAY Qty: 0 RF: 0 vitamin B complex [B Complex-Vitamin B12] 1 EACH tablet 1 tab PO QDAY Qty: 0 RF: 0 methylcellulose (laxative) [Citrucel Sugar Free] 479 GM powder PO HS Qty: 0 RF: 0 Referrals: Zachery Razo MD [Primary Care Provider] -
[2019-04-23 16:26] LABS: Troponin I < 0.012 ng/mL (0.01-0.034)
== END 2019-04-23 17:30 | disposition home or self-care (01) ==
PROVIDERS: Emergency Provider Emergency Medicine; Family Provider Internal Medicine; PCP Internal Medicine
DX: R07.9 Chest pain, unspecified (principal); R00.1 Bradycardia, unspecified; R05 Cough
CPT/HCPCS: 36415; 71046; 80053; 82550; 83690; 84484; 85025; 85610; 85730; 93005; 93010; 99284; 99285

== ENCOUNTER → 2019-05-08 10:14 | Outpatient (CLI) | payer MEDICARE, SELFPAY ==
--- NOTE | 2019-05-08 | DI.RAD.S_ITS ---
PROCEDURE: FL BARIUM SWALLOW INDICATIONS: Dysphagia, unspecified COMPARISON: [facility], CT, ABDOMEN/PELVIS WITH CONTRAST, 12/09/2016, 13:11. [facility], RF, BARIUM SWALLOW, 07/10/2013, 10:41. FINDINGS: Function: There are tertiary contractions with proximal escape. There is gastroesophageal reflux to the level of the thoracic inlet. There is normal transit of a calibrated barium tablet through the esophagus into the stomach. Morphology: No convincing esophageal strictures, extrinsic mass effects, or diverticula. There is a small hiatal hernia. Limited images of the stomach demonstrate an otherwise unremarkable appearance. Fluoroscopic images demonstrate kyphoplasty cement within the lumbar spine and lumbar spinal fusion hardware. IMPRESSION: 1. Gastroesophageal reflux to the level of the thoracic inlet. 2. Esophageal dysmotility with tertiary contractions noted. 3. Small hiatal hernia. Dictated by: Jaswant Piedra M.D. on 05/08/2019 at 13:27 Approved by: Jaswant Piedra M.D. on 05/08/2019 at 13:33
== END ==
PROVIDERS: PCP Internal Medicine; Visit Provider Internal Medicine
DX: R13.10 Dysphagia, unspecified (principal); K21.9 Gastro-esophageal reflux disease without esophagitis; K22.4 Dyskinesia of esophagus; K44.9 Diaphragmatic hernia without obstruction or gangrene; Z98.1 Arthrodesis status
CPT/HCPCS: 74220

== ENCOUNTER → 2019-10-19 12:28 | Outpatient (CLI) | payer MEDICARE, SELFPAY ==
[2019-10-19 13:40] LABS: Alanine Aminotransferase 16 IU/L (<35); Albumin Globulin Ratio 1.4 (1.0-2.8); Alkaline Phosphatase 47 U/L (38-126); Aspartate Aminotransferase 29 IU/L (14-36); BUN Creatinine Ratio 24.1 (6-22); Bilirubin Total 0.4 mg/dL (0.2-1.3); Blood Urea Nitrogen 26 mg/dL (7-17); Calcium 9.6 mg/dL (8.4-10.2); Carbon Dioxide 29 mmol/L (22-32); Chloride 103 mmol/L (98-107); Estimated Glomerular Filt Rate 48.6 mL/min (>60); Globulin 2.8 g/dL (1.7-4.1); Glucose 90 mg/dL (80-110); HEMOLYSIS < 15 (0-50); Potassium 4.7 mmol/L (3.4-5.1); Sodium 138 mmol/L (137-145); Total Protein 6.8 g/dL (6.3-8.2)
[2019-10-19 13:43] LABS: Add Manual Diff / Slide Review NO; Basophils Absolute Auto 100 /uL (0-100); Eosinophils Absolute Auto 200 /uL (0-450); Eosinophils Percent Auto 2.8 % (2-4); Hematocrit 36.1 % (36-46); Hemoglobin 12.4 g/dL (12.0-16.0); Lymphocytes Absolute Auto 1900 /uL (1100-4500); Lymphocytes Percent Auto 24.8 % (25-40); Mean Corpuscular HGB Conc 34.2 % (30-36); Mean Corpuscular Hemoglobin 28.9 PG (26-34); Mean Corpuscular Volume 84.5 fL (80-100); Monocytes Absolute Auto 600 /uL (0-900); Monocytes Percent Auto 7.6 % (3-14); Neutrophils Absolute Auto 4800 /uL (1500-7000); Neutrophils Percent Auto 63.8 % (50-75); Platelet Count 195 X10^3/uL (150-400); Red Blood Cell Count 4.27 X10^6/uL (4.0-5.2); Red Cell Distribution Width 14.6 % (11.6-14.8); White Blood Cell Count 7.6 X10^3/uL (4.5-11.0)
[2019-10-19 13:52] LABS: Hemoglobin A1C% w Est Avg Glu 5.4 % (4.0-6.0)
[2019-10-19 14:48] LABS: TSH w/ Reflex to FT4 2.71 uIU/mL (0.47-4.68)
== END ==
PROVIDERS: PCP Internal Medicine; Referring Provider Internal Medicine; Visit Provider Internal Medicine
DX: M15.0 Primary generalized (osteo)arthritis (principal); E78.00 Pure hypercholesterolemia, unspecified; D64.9 Anemia, unspecified
CPT/HCPCS: 36415; 80053; 83036; 84443; 85025

== ENCOUNTER → 2019-10-24 13:05 | Outpatient (CLI) | payer MEDICARE, SELFPAY | PROVIDERS: PCP Internal Medicine; Referring Provider Internal Medicine; Visit Provider Internal Medicine | DX: Z78.0 Asymptomatic menopausal state (principal); M85.851 Other specified disorders of bone density and structure, right thigh; E07.9 Disorder of thyroid, unspecified; M06.9 Rheumatoid arthritis, unspecified; Z90.722 Acquired absence of ovaries, bilateral; Z82.62 Family history of osteoporosis | CPT/HCPCS: 77080; 77081 ==

== ENCOUNTER 2020-01-25 08:42 | Outpatient (CLI) | payer MEDICARE, SELFPAY | END 2020-01-25 10:47 | disposition home or self-care (01) | LOC: PHYS 08:42 | PROVIDERS: Family Provider Internal Medicine; PCP Internal Medicine; Referring Provider Internal Medicine; Visit Provider Internal Medicine | DX: G56.03 Carpal tunnel syndrome, bilateral upper limbs (principal) | CPT/HCPCS: 95886; 95910 ==

== ENCOUNTER → 2020-03-11 09:19 | Outpatient (CLI) | payer MEDICARE, SELFPAY ==
[2020-03-11 10:46] LABS: Cholesterol 148 mg/dL (140-199); HDL Cholesterol 40 mg/dL (40-60); LDL Cholesterol Calculated 74 mg/dL (<100); Triglycerides 168 mg/dL (35-150)
== END ==
PROVIDERS: Family Provider Internal Medicine; PCP Internal Medicine; Referring Provider Internal Medicine Cardiovascular Disease; Visit Provider Internal Medicine Cardiovascular Disease
DX: E78.5 Hyperlipidemia, unspecified (principal)
CPT/HCPCS: 36415; 80061

== ENCOUNTER → 2020-04-08 09:20 | Outpatient (CLI) | payer MEDICARE, SELFPAY ==
[2020-04-08 11:17] LABS: BUN Creatinine Ratio 29.5 (6-22); Blood Urea Nitrogen 26 mg/dL (7-17); Calcium 9.1 mg/dL (8.4-10.2); Carbon Dioxide 34 mmol/L (22-32); Chloride 105 mmol/L (98-107); Estimated Glomerular Filt Rate > 60.0 mL/min (>60); Glucose 98 mg/dL (80-110); HEMOLYSIS < 15 (0-50); Magnesium 2.1 mg/dL (1.6-2.3); Potassium 4.3 mmol/L (3.4-5.1); Sodium 137 mmol/L (137-145)
[2020-04-08 11:59] LABS: Thyroid Stimulating Hormone 2.82 uIU/mL (0.47-4.68)
== END ==
PROVIDERS: Family Provider Internal Medicine; PCP Internal Medicine; Referring Provider Internal Medicine Cardiovascular Disease; Visit Provider Internal Medicine Cardiovascular Disease
DX: I47.1 Supraventricular tachycardia (principal)
CPT/HCPCS: 36415; 80048; 83735; 84443

== ENCOUNTER → 2020-06-18 14:47 | Outpatient (ROUT) | payer MEDICARE, SELFPAY ==
[2020-06-18 14:58] LABS: Add Manual Diff / Slide Review NO; Basophils Absolute Auto 100 /uL (0-100); Basophils Percent Auto 0.7 % (0-2); Eosinophils Absolute Auto 300 /uL (0-450); Eosinophils Percent Auto 3.5 % (2-4); Hematocrit 36.9 % (36-46); Hemoglobin 12.4 g/dL (12.0-16.0); Lymphocytes Absolute Auto 2500 /uL (1100-4500); Lymphocytes Percent Auto 30.3 % (25-40); Mean Corpuscular HGB Conc 33.5 % (30-36); Mean Corpuscular Hemoglobin 28.8 PG (26-34); Mean Corpuscular Volume 85.8 fL (80-100); Monocytes Absolute Auto 700 /uL (0-900); Monocytes Percent Auto 8.1 % (3-14); Neutrophils Absolute Auto 4800 /uL (1500-7000); Neutrophils Percent Auto 57.4 % (50-75); Platelet Count 189 X10^3/uL (150-400); Red Cell Distribution Width 14.6 % (11.6-14.8); White Blood Cell Count 8.3 X10^3/uL (4.5-11.0)
[2020-06-18 15:30] LABS: Alanine Aminotransferase 16 IU/L (<35); Albumin 3.7 g/dL (3.5-5.0); Albumin Globulin Ratio 1.5 (1.0-2.8); Alkaline Phosphatase 49 U/L (38-126); Aspartate Aminotransferase 29 IU/L (14-36); BUN Creatinine Ratio 25.6 (6-22); Bilirubin Total 0.3 mg/dL (0.2-1.3); Blood Urea Nitrogen 23 mg/dL (7-17); Calcium 9.2 mg/dL (8.4-10.2); Carbon Dioxide 31 mmol/L (22-32); Chloride 107 mmol/L (98-107); Estimated Glomerular Filt Rate 59.8 mL/min (>60); Globulin 2.5 g/dL (1.7-4.1); Glucose 91 mg/dL (80-110); HEMOLYSIS < 15 (0-50); Potassium 4.5 mmol/L (3.4-5.1); Sodium 140 mmol/L (137-145); Total Protein 6.2 g/dL (6.3-8.2)
[2020-06-18 16:00] LABS: TSH w/ Reflex to FT4 3.03 uIU/mL (0.47-4.68)
== END ==
PROVIDERS: Family Provider Internal Medicine; PCP Internal Medicine; Visit Provider Internal Medicine
DX: E11.9 Type 2 diabetes mellitus without complications (principal); R13.10 Dysphagia, unspecified; M15.0 Primary generalized (osteo)arthritis; K21.00 Gastro-esophageal reflux disease with esophagitis, without bleeding
CPT/HCPCS: 80053; 84443; 85025

== ENCOUNTER → 2020-08-15 08:40 | Outpatient (CLI) | payer MEDICARE, SELFPAY ==
[2020-08-15] MEDS: COVID-19 VACC #1, MRNA(MOD) 100 MCG/0.5 ML VIAL IM (08:57)
== END ==
PROVIDERS: Family Provider Internal Medicine; PCP Internal Medicine; Visit Provider Internal Medicine
DX: Z23 Encounter for immunization (principal)
CPT/HCPCS: 0011A; 91301

== ENCOUNTER → 2020-09-12 08:33 | Outpatient (CLI) | payer MEDICARE, SELFPAY ==
[2020-09-12] MEDS: COVID-19 VACC #2, MRNA(MOD) 100 MCG/0.5 ML VIAL IM (08:39)
== END ==
PROVIDERS: Family Provider Internal Medicine; PCP Internal Medicine; Visit Provider Internal Medicine
DX: Z23 Encounter for immunization (principal)
CPT/HCPCS: 0012A; 91301

== ENCOUNTER → 2020-10-05 13:20 | Outpatient (CLI) | payer MEDICARE, SELFPAY | PROVIDERS: Family Provider Internal Medicine; PCP Internal Medicine; Referring Provider Physician Assistant; Visit Provider Physician Assistant | DX: R31.9 Hematuria, unspecified (principal) | CPT/HCPCS: 87077; 87086 ==

== ENCOUNTER → 2020-11-26 09:19 | Outpatient (CLI) | payer MEDICARE, SELFPAY ==
--- NOTE | 2020-11-26 | DI.CT.S_ITS ---
PROCEDURE: CT ABDOMEN PELVIS WO/W CON INDICATIONS: Gross hematuria TECHNIQUE: Optional 5 mm thick noncontrast images acquired from the diaphragm to the symphysis pubis. After the administration of intravenous contrast, 5 mm thick images acquired from the diaphragm to the symphysis pubis after a 10-minute delay. 2 mm thick coronal and sagittal reformats were then performed of the kidneys and ureters. For radiation dose reduction, the following was used: automated exposure control, adjustment of mA and/or kV according to patient size. COMPARISON: [facility], MR, MR LUMBAR SPINE WO CON, 12/01/2017, 12:56. [facility], MR, L-SPINE WITHOUT CONTRAST, 03/04/2016, 16:46. [facility], CR, L-SPINE MINIMUM 4 VIEWS, 03/13/2016, 12:04. [facility], CR, SPINE LUMB BENDING MIN 4VW, 10/17/2010, 13:02. [facility], CR, SPINE LUMB 2 OR 3VW, 04/27/2010, 19:02. FINDINGS: Image quality: Excellent. Lung bases: Lung bases are clear. Heart size is normal. There is a [id number] sized hiatal hernia. Urinary system: There is a large parapelvic cyst in right kidney measuring 4.0 x 5.6 cm. Numerous small low-density cortical nodules are present bilaterally, most likely cysts. Both kidneys are normal in size, without hydronephrosis or nephrolithiasis on pre-contrast images. No perinephric fat stranding. There is normal bilateral renal enhancement. Renal calyces appear normal in morphology when filled with contrast. There is mass effect to the renal pelvis by the large right parapelvic renal cyst. Opacified portions of both ureters demonstrate normal caliber. Bladder is not fully distended. Bladder wall appears thickened. No calcified bladder stones. Other solid organs: Liver is normal in size and enhancement. Gallbladder is absent, presumably surgically resected. There is mild intrahepatic biliary dilation. Common bile duct is dilated measuring up to 22 mm, tapering to normal caliber at the ampulla. No common bile duct stones or masses are identified. Pancreas enhances normally. Spleen is normal in size and enhancement. No adrenal nodules. Peritoneum and bowel: There is extensive colonic diverticulosis. No CT findings to suggest acute diverticulitis. There is a large amount of stool in colon. Bowel loops demonstrate normal caliber. No free fluid or air. Nodes and vessels: Mild mesenteric stranding. Small mesenteric lymph nodes are present. No retroperitoneal or mesenteric adenopathy by size criteria. Aorta and inferior vena cava are normal in size. Abdominal wall: No ventral hernias. Pelvis: No pathologic free pelvic fluid. No inguinal hernias or adenopathy. Bones: No suspicious bony lesions. No vertebral body compression fractures. There are degenerative and postsurgical changes in lumbar spine. There is kyphoplasty in L3 IMPRESSION: 1. There is bladder wall thickening although bladder is not fully distended. Recommend cystoscopy for follow-up evaluation. 2. No renal stone or hydronephrosis. 3. A large parapelvic cyst in right kidney which has mass effect to right renal pelvicalyceal system. There also small low-density cortical nodules bilaterally, most likely cysts. 4. Extensive colonic diverticulosis without diverticulitis. 5. Dilated common bile duct measuring up to 22 mm. No common bile duct stones or masses. Please correlate with serum bilirubin. 6. Tpngy-vt-wqnonpeb sized hiatal hernia. Dictated by: Roderick Garcia M.D. on 11/26/2020 at 13:34 Approved by: Roderick Garcia M.D. on 11/26/2020 at 14:19
== END ==
PROVIDERS: Family Provider Internal Medicine; PCP Internal Medicine; Referring Provider Physician Assistant Medical; Visit Provider Urology
DX: R31.0 Gross hematuria (principal); K44.9 Diaphragmatic hernia without obstruction or gangrene; N28.1 Cyst of kidney, acquired; K57.90 Diverticulosis of intestine, part unspecified, without perforation or abscess without bleeding; K83.8 Other specified diseases of biliary tract; Z90.49 Acquired absence of other specified parts of digestive tract
CPT/HCPCS: 74178

== ENCOUNTER → 2021-01-21 11:10 | Outpatient (CLI) | payer MEDICARE, SELFPAY ==
--- NOTE | 2021-01-21 | DI.MRI.S_ITS ---
PROCEDURE: MR LUMBAR SPINE WO CON INDICATIONS: BACK PAIN TECHNIQUE: Noncontrast sagittal T1 spin echo and T2 fast echo, sagittal STIR, axial T1 and T2 fast spin echo through the lumbar spine. In cases with scoliosis, additional coronal T2 fast spin echo may be performed. COMPARISON: [facility], MR, MR LUMBAR SPINE WO CON, 12/01/2017, 12:56. [facility], MR, L-SPINE WITHOUT CONTRAST, 03/04/2016, 16:46. [facility], CR, XR LUMBAR SPINE WITH OLBIQUES PLUS FLEXION EXTENSION, 01/06/2021, 15:39. FINDINGS: Image quality: Excellent. Alignment and Curvature: There is mild L2-L3 and, L3-L4 and L4-L5 retrolisthesis.. Bones: Postprocedural changes compatible with L3 percutaneous vertebroplasty. Postoperative changes compatible with L5-S1 TLIF. Marrow is of normal overall signal. No acute vertebral body compression fractures. Spinal Cord: Conus medullaris terminates at the L1 level. Visualized cord demonstrates normal signal and size. Paraspinous Soft Tissues: No paravertebral masses. Bilateral renal cysts. T12-L1: Loss of disc signal. Mild to moderate diffuse disc bulge. Mild narrowing of the central canal. No neural foraminal narrowing. No neural compression. Fissure noted in the posterior annulus. L1-L2: Loss of disc signal. Mild, diffuse disc bulge. Small right central disc protrusion. Mild narrowing of the central canal. Mild right neural foraminal narrowing. No neural compression. L2-L3: Loss of disc signal and height. Moderate, diffuse disc bulge. Bkep-vx-lszwmety narrowing of the central canal. Mild to moderate bilateral neural foraminal narrowing. No neural compression. L3-L4: Loss of disc signal. Mild to moderate diffuse disc bulge. Gdtr-mb-rulcbfou bilateral facet hypertrophy. Mild ligamentum flavum hypertrophy. Moderate narrowing of the central canal. Moderate bilateral neural foraminal narrowing. No neural compression. L4-L5: Loss of disc signal. Mild, diffuse disc bulge. Severe bilateral facet hypertrophy. Severe ligamentum flavum hypertrophy. Severe narrowing of the central canal with compression of the nerve roots of the cauda equina. Moderate right and severe left neural foraminal narrowing with compression of the exiting left L4 nerve root. L5-S1: Status post fusion. No central stenosis. Mild bilateral neural foraminal narrowing. No neural compression. IMPRESSION: 1. L5-S1 fusion and L3 percutaneous vertebroplasty changes stable compared to prior plain film radiograph series. 2. Grade 1 L2-L3, L3-L4 and L4-L5 degenerative spondylolisthesis. 3. Multilevel degenerative disc disease. 4. Multilevel facet arthropathy. 5. Severe L4-L5 central canal narrowing with compression of the nerve roots of the cauda equina. 6. Severe left L4-L5 neural foraminal narrowing with compression of the exiting left L4 nerve root. Dictated by: Juli Pearson MD, PhD on 01/21/2021 at 17:18 Approved by: Juli Pearson MD, PhD on 01/21/2021 at 17:23
== END ==
PROVIDERS: Family Provider Internal Medicine; PCP Internal Medicine; Referring Provider Physical Medicine & Rehabilitation Pain Medicine; Visit Provider Physical Medicine & Rehabilitation Pain Medicine
DX: M48.062 Spinal stenosis, lumbar region with neurogenic claudication (principal); M51.36 Other intervertebral disc degeneration, lumbar region; M47.816 Spondylosis without myelopathy or radiculopathy, lumbar region; M43.16 Spondylolisthesis, lumbar region; Z98.1 Arthrodesis status
CPT/HCPCS: 72148

== ENCOUNTER 2021-05-15 16:36 | Emergency (ER) | payer MEDICARE, SELFPAY ==
[2021-05-15 16:40] VITALS: BP 174/73; PULSE 71; RESP 15; TEMP 36.9; O2SAT 100; BMI 29.2
--- NOTE | 2021-05-15 16:50 | DI.RAD.S_ITS ---
PROCEDURE: XR CHEST 1V INDICATIONS: chest pain TECHNIQUE: One view of the chest was acquired. COMPARISON: [facility], CR, XR CHEST 2V, 09/22/2018, 10:48. [facility], CR, XR CHEST 2V, 04/23/2019, 12:26. FINDINGS: Surgical changes and devices: None. Lungs and pleura: Lungs are clear. No pleural effusions or pneumothorax. Mediastinum: Mediastinal contours appear normal. Heart size is normal. Bones and chest wall: No suspicious bony lesions. Overlying soft tissues appear unremarkable. IMPRESSION: No acute cardiopulmonary process is seen. Dictated by: Luis Carlos Reed M.D. on 05/15/2021 at 16:04 Approved by: Luis Carlos Reed M.D. on 05/15/2021 at 16:04
[2021-05-15 17:00] VITALS: O2SAT 99
[2021-05-15 17:01] VITALS: BP 156/65; PULSE 61; RESP 18; O2SAT 97
[2021-05-15 17:09] VITALS: BP 140/63; PULSE 61; RESP 16; O2SAT 96
[2021-05-15 17:14] LABS: Add Manual Diff / Slide Review NO; Basophils Absolute Auto 0 /uL (0-100); Basophils Percent Auto 0.5 % (0-2); Eosinophils Absolute Auto 100 /uL (0-450); Hematocrit 37.6 % (36-46); Hemoglobin 12.5 g/dL (12.0-16.0); Lymphocytes Absolute Auto 2100 /uL (1100-4500); Lymphocytes Percent Auto 31.1 % (25-40); Mean Corpuscular HGB Conc 33.4 % (30-36); Mean Corpuscular Hemoglobin 29.2 PG (26-34); Mean Corpuscular Volume 87.4 fL (80-100); Monocytes Absolute Auto 600 /uL (0-900); Monocytes Percent Auto 8.3 % (3-14); Neutrophils Absolute Auto 3900 /uL (1500-7000); Neutrophils Percent Auto 58.1 % (50-75); Platelet Count 203 X10^3/uL (150-400); Red Cell Distribution Width 13.4 % (11.6-14.8); White Blood Cell Count 6.7 X10^3/uL (4.5-11.0)
[2021-05-15 17:29] LABS: Alanine Aminotransferase 16 IU/L (<35); Albumin 4.1 g/dL (3.5-5.0); Albumin Globulin Ratio 1.4 (1.0-2.8); Alkaline Phosphatase 46 U/L (38-126); Aspartate Aminotransferase 27 IU/L (14-36); BUN Creatinine Ratio 17.2 (6-22); Bilirubin Total 0.5 mg/dL (0.2-1.3); Blood Urea Nitrogen 17 mg/dL (7-17); Calcium 9.3 mg/dL (8.4-10.2); Carbon Dioxide 29 mmol/L (22-32); Chloride 104 mmol/L (98-107); Creatine Kinase 28 U/L (30-135); Estimated Glomerular Filt Rate 53.4 mL/min (>60); Globulin 2.9 g/dL (1.7-4.1); Glucose 94 mg/dL (80-110); HEMOLYSIS < 15 (0-50); Lipase 65 U/L (23-300); Magnesium 2.1 mg/dL (1.6-2.3); Sodium 137 mmol/L (137-145)
[2021-05-15 17:30] VITALS: BP 153/68; PULSE 57; RESP 17; O2SAT 98
[2021-05-15 17:41] LABS: Troponin I < 0.012 ng/mL (0.01-0.034)
[2021-05-15 17:45] LABS: Appearance Urine UA CLEAR; Bilirubin Urine UA NEGATIVE (NEGATIVE); Color Urine UA YELLOW; Glucose Urine UA TRACE g/dL (Negative); Ketones Urine UA NEGATIVE (NEGATIVE); Leukocyte Esterase Urine UA NEGATIVE (NEGATIVE); Nitrite Urine UA NEGATIVE (Negative); Occult Blood Urine UA NEGATIVE (Negative); Protein Urine UA NEGATIVE (Negative); Specific Gravity Urine UA 1.015 (1.000-1.035); Urobilinogen Urine UA 0.2 E.U./dL (0.2)
--- NOTE | 2021-05-15 17:47 | ED.GENADULT ---
HPI - General Adult <Daniela Miller, [employer] - Last Filed: 05/15/21 19:02> General Chief complaint: Dizziness Stated complaint: N/V, diarrhea, dizzy Time Seen by Provider: 05/15/21 17:04 Source: patient Mode of arrival: Wheelchair History of Present Illness HPI narrative: 86-year-old female presents to the emergency department today with complaint of feeling fatigued for months now. She expresses that she had an episode of BPPV last week and was woke up in the middle of the night with the room spinning, she vomited once that night and once in the morning, but has no longer had any of the symptoms of dizziness, vertigo, abdominal pain, or nausea and vomiting. She does have a history of BPPV in the past. Patient also has a history of CVA, a GI bleed, and small bowel obstruction. Patient denies any Nausea or vomiting, she has been afebrile, she denies any pain anywhere, today she reports her only symptom is fatigue and this has been chronic for weeks she states. She also reports that she was recently started on metoprolol for rate control. Related Data Home Medications Medication Instructions Recorded Confirmed [CITRACAL W/D] 600 mg PO Q DAY #0 03/10/10/05/20 levothyroxine 75 mcg tablet 75 mcg PO 0600 #30 tab 09/01/16 10/05/20 (Synthroid) metoclopramide HCl 5 mg tablet 5 mg PO BID #0 09/01/16 10/05/20 cholecalciferol (vitamin D3) 25 2,000 unit PO QDAY #0 12/09/16 10/05/20 mcg (1,000 unit) tablet (Vitamin D3) methylcellulose (laxative) PO HS #0 12/09/16 10/05/20 (Citrucel Sugar Free) multivitamin (Multiple Vitamins) 1 tab PO QDAY #0 12/09/16 10/05/20 vitamin B complex (B 1 tab PO QDAY #0 12/09/16 10/05/20 Complex-Vitamin B12) diltiazem HCl 120 mg mg PO 10/05/20 10/05/20 tablet,extended release 24 hr diltiazem HCl 60 mg tablet mg PO 10/05/20 10/05/20 metoprolol succinate 25 mg mg PO 10/05/20 10/05/20 tablet,extended release 24 hr pantoprazole 20 mg tablet,delayed mg PO 10/05/20 10/05/20 release rosuvastatin 5 mg tablet mg PO 10/05/20 10/05/20 sertraline 100 mg tablet mg PO 10/05/20 10/05/20 Previous Rx's Medication Instructions Recorded aspirin 325 mg tablet,delayed 325 mg PO QDAY #30 tab 09/02/16 release Allergies Allergy/AdvReac Type Severity Reaction Status Date / Time iodine Allergy Severe FLUSHED, Verified 05/15/21 16:46 HOT codeine AdvReac Severe RAPID Verified 05/15/21 16:46 HEARTRATE/CHEST PAIN ciprofloxacin [From CIPRO] AdvReac Unknown NAUSEA/VOMI Verified 05/15/21 16:46 TING Review of Systems <RITU Lechuga - Last Filed: 05/15/21 19:02> Review of Systems Narrative: General: denies fever, chills, endorses fatigue Head/Neck: denies headache, neck pain Eyes: denies visual changes, eye pain Cardio: denies chest pain, palpitations Respiratory: denies shortness of breath, cough GI: denies abdominal pain, nausea, vomiting, or diarrhea : denies dysuria, hematuria MSK: denies joint pain, muscle weakness Skin: denies rash, itching Neuro: denies numbness, tingling Patient History <RITU Lechuga - Last Filed: 05/15/21 19:02> Medical History (Updated 05/15/21 @ 19:02 by RITU Lechuga) CVA (cerebral vascular accident) GI bleed Right sided weakness Small bowel obstruction Social History Smoking Status: Unknown if ever smoked Smoking Status: Unknown if ever smoked alcohol intake frequency: holidays/special occasions only Substance Use Type: does not use Exam <RITU Lechuga - Last Filed: 05/15/21 19:02> Narrative Exam Narrative: Independently reviewed vitals signs and nursing notes. General: Awake, alert, nontoxic, no cardiorespiratory distress Head/Neck: Atraumatic, neck full range of motion Eyes: EOMI, conjunctiva normal, without nystagmus Nose: nares patent, no rhinorrhea Mouth/Throat: moist mucus membranes, posterior pharynx normal, no oral lesions Cardio: Regular rate and rhythm, no peripheral edema Respiratory: respirations unlabored without wheezing, stridor, or rales. No retractions. GI: Abdomen soft, nontender to palpation, no CVA tenderness MSK: Moves all extremities, neurovascularly intact Skin: Normal capillary refill, no rash Neuro: Normal speech and cognition, normal gait Initial Vital Signs Initial Vital Signs: Vital Signs Temperature 98.4 F 05/15/21 16:40 Pulse Rate 71 05/15/21 16:40 Respiratory Rate 15 05/15/21 16:40 Blood Pressure 174/73 H 05/15/21 16:40 Pulse Oximetry 100 05/15/21 16:40 <Wilma Martinez MD - Last Filed: 05/17/21 07:41> Initial Vital Signs Initial Vital Signs: Vital Signs Temperature 98.4 F 05/15/21 16:40 Pulse Rate 71 05/15/21 16:40 Respiratory Rate 15 05/15/21 16:40 Blood Pressure 174/73 H 05/15/21 16:40 Pulse Oximetry 100 05/15/21 16:40 Course <RITU Lechuga - Last Filed: 05/15/21 19:02> Orders Ordered: ED Orders 05/15/21 16:50 XR chest 1V Stat EKG-12 Lead Stat 05/15/21 16:57 Complete Blood Count AUTO DIFF Stat Comprehensive Metabolic Panel Stat Lipase Stat Magnesium Stat Thyroid Stimulating Hormone Stat Troponin & CK Cardiac Panel Stat 05/15/21 17:18 Urinalysis and Microscopic Stat Vital Signs Vital signs: Vital Signs - 8 hr 05/15/21 16:40 05/15/21 17:00 05/15/21 17:01 Temperature 98.4 F Pulse Rate 71 61 Respiratory Rate 15 18 Blood Pressure 174/73 H 156/65 H Pulse Oximetry 100 99 97 05/15/21 17:09 05/15/21 17:30 Temperature Pulse Rate 61 57 L Respiratory Rate 16 17 Blood Pressure 140/63 153/68 H Pulse Oximetry 96 98 <Wilma Martinez MD - Last Filed: 05/17/21 07:41> Orders Ordered: ED Orders 05/15/21 16:50 XR chest 1V Stat EKG-12 Lead Stat 05/15/21 16:57 Complete Blood Count AUTO DIFF Stat Comprehensive Metabolic Panel Stat Lipase Stat Magnesium Stat Thyroid Stimulating Hormone Stat Troponin & CK Cardiac Panel Stat 05/15/21 17:18 Urinalysis and Microscopic Stat Vital Signs Vital signs: Vital Signs - 8 hr 05/15/21 16:40 05/15/21 17:00 05/15/21 17:01 Temperature 98.4 F Pulse Rate 71 61 Respiratory Rate 15 18 Blood Pressure 174/73 H 156/65 H Pulse Oximetry 100 99 97 05/15/21 17:09 05/15/21 17:30 Temperature Pulse Rate 61 57 L Respiratory Rate 16 17 Blood Pressure 140/63 153/68 H Pulse Oximetry 96 98 Medical Decision Making <RITU Lechuga - Last Filed: 05/15/21 19:02> Lab Data Result diagrams: 05/15/21 16:57 05/15/21 16:57 Labs: Lab Results 05/15/21 05/15/21 05/15/21 Range/Units 16:57 16:57 16:57 WBC 6.7 (4.5-11.0) X10^3/uL RBC 4.30 (4.0-5.2) X10^6/uL Hgb 12.5 (12.0-16.0) g/dL Hct 37.6 (36-46) % MCV 87.4 (80-100) fL MCH 29.2 (26-34) PG MCHC 33.4 (30-36) % RDW 13.4 (11.6-14.8) % Plt Count 203 (150-400) X10^3/uL Neut % (Auto) 58.1 (50-75) % Lymph % (Auto) 31.1 (25-40) % [place] % (Auto) 8.3 (3-14) % Eos % (Auto) 2.0 (2-4) % Baso % (Auto) 0.5 (0-2) % Neut # (Auto) 3900 (2399-5340) /uL Lymph # (Auto) 2100 (8803-7719) /uL [place] # (Auto) 600 (0-900) /uL Eos # (Auto) 100 (0-450) /uL Baso # (Auto) 0 (0-100) /uL Sodium 137 (137-145) mmol/L Potassium 4.0 (3.4-5.1) mmol/L Chloride 104 (98-107) mmol/L Carbon Dioxide 29 (22-32) mmol/L BUN 17 (7-17) mg/dL Creatinine 0.99 (0.52-1.04) mg/dL Estimated GFR 53.4 L (>60) mL/min BUN/Creatinine Ratio 17.2 (6-22) Glucose 94 (80-110) mg/dL Calcium 9.3 (8.4-10.2) mg/dL Magnesium 2.1 (1.6-2.3) mg/dL Total Bilirubin 0.5 (0.2-1.3) mg/dL AST 27 (14-36) IU/L ALT 16 (<35) IU/L Alkaline Phosphatase 46 (38-126) U/L Total Creatine Kinase 28 L (30-135) U/L CK-MB (CK-2) TNP CK-MB (CK-2) Rel Index TNP Troponin I < 0.012 (0.01-0.034) ng/mL Total Protein 7.0 (6.3-8.2) g/dL Albumin 4.1 (3.5-5.0) g/dL Globulin 2.9 (1.7-4.1) g/dL Albumin/Globulin Ratio 1.4 (1.0-2.8) Lipase 65 (23-300) U/L TSH 1.67 (0.47-4.68) uIU/mL Urine Color Urine Appearance Urine pH (4.5-8.0) Ur Specific [place] (1.000-1.035) Urine Protein (Negative) Urine Glucose (UA) (Negative) g/dL Urine Ketones (NEGATIVE) Urine Occult Blood (Negative) Urine Nitrate (Negative) Urine Bilirubin (NEGATIVE) Urine Urobilinogen (0.2) E.U./dL Ur Leukocyte Esterase (NEGATIVE) Urine RBC (0-5/HPF) Urine WBC (0-5/HPF) Urine Bacteria (None) Ur Culture Indicated? 05/15/21 Range/Units 17:18 WBC (4.5-11.0) X10^3/uL RBC (4.0-5.2) X10^6/uL Hgb (12.0-16.0) g/dL Hct (36-46) % MCV (80-100) fL MCH (26-34) PG MCHC (30-36) % RDW (11.6-14.8) % Plt Count (150-400) X10^3/uL Neut % (Auto) (50-75) % Lymph % (Auto) (25-40) % [place] % (Auto) (3-14) % Eos % (Auto) (2-4) % Baso % (Auto) (0-2) % Neut # (Auto) (1849-7997) /uL Lymph # (Auto) (2746-2141) /uL [place] # (Auto) (0-900) /uL Eos # (Auto) (0-450) /uL Baso # (Auto) (0-100) /uL Sodium (137-145) mmol/L Potassium (3.4-5.1) mmol/L Chloride (98-107) mmol/L Carbon Dioxide (22-32) mmol/L BUN (7-17) mg/dL Creatinine (0.52-1.04) mg/dL Estimated GFR (>60) mL/min BUN/Creatinine Ratio (6-22) Glucose (80-110) mg/dL Calcium (8.4-10.2) mg/dL Magnesium (1.6-2.3) mg/dL Total Bilirubin (0.2-1.3) mg/dL AST (14-36) IU/L ALT (<35) IU/L Alkaline Phosphatase (38-126) U/L Total Creatine Kinase (30-135) U/L CK-MB (CK-2) CK-MB (CK-2) Rel Index Troponin I (0.01-0.034) ng/mL Total Protein (6.3-8.2) g/dL Albumin (3.5-5.0) g/dL Globulin (1.7-4.1) g/dL Albumin/Globulin Ratio (1.0-2.8) Lipase (23-300) U/L TSH (0.47-4.68) uIU/mL Urine Color Yellow Urine Appearance Clear Urine pH 5.0 (4.5-8.0) Ur Specific [place] 1.015 (1.000-1.035) Urine Protein Negative (Negative) Urine Glucose (UA) Trace H (Negative) g/dL Urine Ketones Negative (NEGATIVE) Urine Occult Blood Negative (Negative) Urine Nitrate Negative (Negative) Urine Bilirubin Negative (NEGATIVE) Urine Urobilinogen 0.2 (0.2) E.U./dL Ur Leukocyte Esterase Negative (NEGATIVE) Urine RBC None seen (0-5/HPF) Urine WBC None seen (0-5/HPF) Urine Bacteria None seen (None) Ur Culture Indicated? Cult not indicated Imaging Data Chest x-ray: Radiologist's Impression: PROCEDURE:? XR CHEST 1V ? INDICATIONS:? chest pain ? TECHNIQUE:? One view of the chest was acquired.? ? COMPARISON:? [facility], CR, XR CHEST 2V, 09/22/2018, 10:48.? [facility], CR, XR CHEST 2V, 04/23/2019, 12:26. ? FINDINGS:? ? Surgical changes and devices:? None.? ? Lungs and pleura:? Lungs are clear.? No pleural effusions or pneumothorax.? ? Mediastinum:? Mediastinal contours appear normal.? Heart size is normal.? ? Bones and chest wall:? No suspicious bony lesions.? Overlying soft tissues appear unremarkable.? ? IMPRESSION:? ? No acute cardiopulmonary process is seen.? Dictated by: Luis Carlos Reed M.D. on 05/15/2021 at 16:04 ? ? Approved by: Luis Carlos Reed M.D. on 05/15/2021 at 16:04 ? MDM Narrative Medical decision making narrative: 86-year-old female presents to the emergency department for chief complaint of fatigue which she describes as being chronic in nature and for as long as she has been on metoprolol for heart rate control. Patient reports that she is a patient of Dr. Ireland who started patient on 25 mg of metoprolol b.i.d. dosing. She endorses feeling fatigue approximately since this started. Patient denies any other symptoms, she does endorse having a BPPV episode 5 days ago which resolved on own. She has been afebrile, is nontoxic appearing, there were no pertinent findings on her lab work, her chest x-ray showed no acute cardiopulmonary process, no leukocytosis or signs of infection in her urine or blood work, no electrolyte abnormalities, TSH was stable, troponin was negative. Differential diagnosis include adverse drug reaction, hypothyroidism, depression, fibromyalgia, chronic fatigue syndrome, anemia, infection. Patient is appropriate and amenable to discharge home. Vital signs are stable on repeat examination is unremarkable. Patient has been informed of results. Patient has been given strict return to ER precautions for any new or worsening symptoms. Patient understands to follow up closely with outpatient providers as instructed. Patient understands plan and agrees to discharge home. All questions and concerns answered at this time. <Wilma Martinez MD - Last Filed: 05/17/21 07:41> Lab Data Labs: Lab Results 05/15/21 05/15/21 05/15/21 Range/Units 16:57 16:57 16:57 WBC 6.7 (4.5-11.0) X10^3/uL RBC 4.30 (4.0-5.2) X10^6/uL Hgb 12.5 (12.0-16.0) g/dL Hct 37.6 (36-46) % MCV 87.4 (80-100) fL MCH 29.2 (26-34) PG MCHC 33.4 (30-36) % RDW 13.4 (11.6-14.8) % Plt Count 203 (150-400) X10^3/uL Neut % (Auto) 58.1 (50-75) % Lymph % (Auto) 31.1 (25-40) % [place] % (Auto) 8.3 (3-14) % Eos % (Auto) 2.0 (2-4) % Baso % (Auto) 0.5 (0-2) % Neut # (Auto) 3900 (1154-4590) /uL Lymph # (Auto) 2100 (5794-8548) /uL [place] # (Auto) 600 (0-900) /uL Eos # (Auto) 100 (0-450) /uL Baso # (Auto) 0 (0-100) /uL Sodium 137 (137-145) mmol/L Potassium 4.0 (3.4-5.1) mmol/L Chloride 104 (98-107) mmol/L Carbon Dioxide 29 (22-32) mmol/L BUN 17 (7-17) mg/dL Creatinine 0.99 (0.52-1.04) mg/dL Estimated GFR 53.4 L (>60) mL/min BUN/Creatinine Ratio 17.2 (6-22) Glucose 94 (80-110) mg/dL Calcium 9.3 (8.4-10.2) mg/dL Magnesium 2.1 (1.6-2.3) mg/dL Total Bilirubin 0.5 (0.2-1.3) mg/dL AST 27 (14-36) IU/L ALT 16 (<35) IU/L Alkaline Phosphatase 46 (38-126) U/L Total Creatine Kinase 28 L (30-135) U/L CK-MB (CK-2) TNP CK-MB (CK-2) Rel Index TNP Troponin I < 0.012 (0.01-0.034) ng/mL Total Protein 7.0 (6.3-8.2) g/dL Albumin 4.1 (3.5-5.0) g/dL Globulin 2.9 (1.7-4.1) g/dL Albumin/Globulin Ratio 1.4 (1.0-2.8) Lipase 65 (23-300) U/L TSH 1.67 (0.47-4.68) uIU/mL Urine Color Urine Appearance Urine pH (4.5-8.0) Ur Specific [place] (1.000-1.035) Urine Protein (Negative) Urine Glucose (UA) (Negative) g/dL Urine Ketones (NEGATIVE) Urine Occult Blood (Negative) Urine Nitrate (Negative) Urine Bilirubin (NEGATIVE) Urine Urobilinogen (0.2) E.U./dL Ur Leukocyte Esterase (NEGATIVE) Urine RBC (0-5/HPF) Urine WBC (0-5/HPF) Urine Bacteria (None) Ur Culture Indicated? 05/15/21 Range/Units 17:18 WBC (4.5-11.0) X10^3/uL RBC (4.0-5.2) X10^6/uL Hgb (12.0-16.0) g/dL Hct (36-46) % MCV (80-100) fL MCH (26-34) PG MCHC (30-36) % RDW (11.6-14.8) % Plt Count (150-400) X10^3/uL Neut % (Auto) (50-75) % Lymph % (Auto) (25-40) % [place] % (Auto) (3-14) % Eos % (Auto) (2-4) % Baso % (Auto) (0-2) % Neut # (Auto) (7384-6461) /uL Lymph # (Auto) (0611-2797) /uL [place] # (Auto) (0-900) /uL Eos # (Auto) (0-450) /uL Baso # (Auto) (0-100) /uL Sodium (137-145) mmol/L Potassium (3.4-5.1) mmol/L Chloride (98-107) mmol/L Carbon Dioxide (22-32) mmol/L BUN (7-17) mg/dL Creatinine (0.52-1.04) mg/dL Estimated GFR (>60) mL/min BUN/Creatinine Ratio (6-22) Glucose (80-110) mg/dL Calcium (8.4-10.2) mg/dL Magnesium (1.6-2.3) mg/dL Total Bilirubin (0.2-1.3) mg/dL AST (14-36) IU/L ALT (<35) IU/L Alkaline Phosphatase (38-126) U/L Total Creatine Kinase (30-135) U/L CK-MB (CK-2) CK-MB (CK-2) Rel Index Troponin I (0.01-0.034) ng/mL Total Protein (6.3-8.2) g/dL Albumin (3.5-5.0) g/dL Globulin (1.7-4.1) g/dL Albumin/Globulin Ratio (1.0-2.8) Lipase (23-300) U/L TSH (0.47-4.68) uIU/mL Urine Color Yellow Urine Appearance Clear Urine pH 5.0 (4.5-8.0) Ur Specific [place] 1.015 (1.000-1.035) Urine Protein Negative (Negative) Urine Glucose (UA) Trace H (Negative) g/dL Urine Ketones Negative (NEGATIVE) Urine Occult Blood Negative (Negative) Urine Nitrate Negative (Negative) Urine Bilirubin Negative (NEGATIVE) Urine Urobilinogen 0.2 (0.2) E.U./dL Ur Leukocyte Esterase Negative (NEGATIVE) Urine RBC None seen (0-5/HPF) Urine WBC None seen (0-5/HPF) Urine Bacteria None seen (None) Ur Culture Indicated? Cult not indicated Discharge Plan Departure Patient Disposition: Home Clinical Impression: Fatigue, Adverse reaction to drug Instructions: Chronic Fatigue Syndrome, DI for Fatigue Activity Restrictions/Additional Instructions: *You have been diagnosed with fatigue most likely related to your metoprolol medication which she recently started. Please follow-up with Dr. Ireland regarding your metoprolol dosing. I have a suspicion that your feelings of fatigue are related to starting this medication recently, please see Dr. Ireland and ask about cutting your dose in half and see if that is helpful for you. Please also follow-up with Dr. Razo about your symptoms of fatigue and please mention that you had another episode of benign paroxysmal positional vertigo and let him know that this caused 2 episodes of vomiting but your symptoms have resolved for now. Today on your workup there does not appear to be any dangerous causes for your symptoms. There does not appear to be an infectious process, your cardiac workup came back clear, your thyroid level is stable, you did not have a urinary tract infection, and your kidneys and liver appear healthy. Thank you for trusting us with your care today, it was a pleasure to meet you both. Metoprolol may cause dizziness or lightheadedness, tiredness, fatigue, depression, nausea, dry mouth, stomach pain, vomiting, gas or bloating. *What to do: *Please continue to take your regular medications as directed. [ ] New medication prescriptions sent to your pharmacy: [ ] [ ] New medication written as a paper prescription [ x] No new medications given *Please follow up with your primary care provider in 2-3 days, call for an appointment. Let them know you were seen in the Emergency Department and that we ask that you be seen in follow up. We will electronically transmit a record of today's note if your PCP is in our system *If you do not have a primary care provider please contact the [facility] Resource line at [phone]. They will ask some questions about your medical history and help get you set up with a doctor in the community. *Return to Emergency Department if you should have any new, worsening or concerning symptoms, such as [fever greater than 101F, chills, worsening pain, persistent vomiting or other bothersome symptoms] Prescriptions: No Action rosuvastatin 5 mg tablet PO 0RF metoprolol succinate 25 mg tablet extended release 24 hr PO 0RF Cardizem LA 120 mg tablet extended release 24 hr PO 0RF pantoprazole 20 mg tablet,delayed release (DR/EC) PO 0RF sertraline 100 mg tablet PO 0RF diltiazem HCl 60 mg tablet PO 0RF [CITRACAL W/D] 600 mg PO Q DAY Qty: 0 0RF metoclopramide HCl 5 MG tablet 5 mg PO BID Qty: 0 0RF levothyroxine [Synthroid] 75 MCG tablet 75 mcg PO 0600 Qty: 30 0RF aspirin 325 MG tablet,delayed release (DR/EC) 325 mg PO QDAY Qty: 30 0RF cholecalciferol (vitamin D3) [Vitamin D3] 1,000 UNIT tablet 2,000 unit PO QDAY Qty: 0 0RF multivitamin [Multiple Vitamins] 1 EACH tablet 1 tab PO QDAY Qty: 0 0RF vitamin B complex [B Complex-Vitamin B12] 1 EACH tablet 1 tab PO QDAY Qty: 0 0RF methylcellulose (laxative) [Citrucel Sugar Free] 479 GM powder PO HS Qty: 0 0RF Referrals: Zachery Razo MD [Primary Care Provider] - As soon as possible (Please call his office tomorrow and schedule a follow-up appt from your emergency dept visit today to discuss your chronic fatigue.) Merry Ireland MD [Physician] - As soon as possible (for possibly decreasing metoprolol dosing for fatigue symptoms) <Wilma Martinez MD - Last Filed: 05/17/21 07:41> Cosign ED Attending Cosignature Attestation: I was immediately available in the department for consultation throughout this patient's visit. I agree with documentation as above. Wilma Martinez MD
[2021-05-15 17:52] LABS: Bacteria Urine None Seen; Culture Indicated Urine Cult Not Indicated; RBC Urine None Seen (0-5/HPF); WBC Urine None Seen (0-5/HPF)
[2021-05-15 18:55] LABS: Thyroid Stimulating Hormone 1.67 uIU/mL (0.47-4.68)
[2021-05-15 19:05] VITALS: BP 159/68; PULSE 58; RESP 20; O2SAT 97
== END 2021-05-15 19:18 | disposition home or self-care (01) ==
PROVIDERS: Emergency Medicine; Emergency Provider Nurse Practitioner Critical Care Medicine; Family Provider Internal Medicine; PCP Internal Medicine
DX: R53.83 Other fatigue (principal); R03.0 Elevated blood-pressure reading, without diagnosis of hypertension; T44.7X5A Adverse effect of beta-adrenoreceptor antagonists, initial encounter
CPT/HCPCS: 36415; 71045; 80053; 81001; 82550; 83690; 83735; 84443; 84484; 85025; 93005; 99283; 99284

== ENCOUNTER → 2021-09-02 14:17 | Outpatient (CLI) | payer MEDICARE, SELFPAY ==
--- NOTE | 2021-09-02 | DI.MG.S_ITS ---
BILATERAL DIGITAL SCREENING MAMMOGRAM 3D/2D WITH CAD: 09/02/2021 CLINICAL: Routine screening. Comparison is made to exams dated: 09/27/2018 mammogram, 09/06/2014 mammogram, 08/26/2011 mammogram, and 05/23/2004 mammogram - [facility]. There are scattered fibroglandular elements in both breasts. Current study was also evaluated with a Computer Aided Detection (CAD) system. There are benign vascular calcifications in both breasts. No significant masses, calcifications, or other findings are seen in either breast. There has been no significant interval change. IMPRESSION: BENIGN There is no mammographic evidence of malignancy. A 1 year screening mammogram is recommended. This exam was interpreted at Station ID: [id number]. NOTE: For mammograms, a report in lay terms will be sent to the patient. Approximately 15% of breast malignancies will not be visualized mammographically. In the management of a palpable breast mass, a negative mammogram must not discourage biopsy of a clinically suspicious lesion. Electronically Signed By: Jatinder muñoz/yessenia:09/02/2021 16:29:04 letter sent: Normal Exam ACR BI-RADS Category 2: Benign Finding(s) 3342F
== END ==
PROVIDERS: Family Provider Internal Medicine; PCP Internal Medicine; Referring Provider Internal Medicine; Visit Provider Internal Medicine
DX: Z12.31 Encounter for screening mammogram for malignant neoplasm of breast (principal)
CPT/HCPCS: 77063; 77067

== ENCOUNTER → 2022-03-17 12:13 | Outpatient (CLI) | payer MEDICARE, SELFPAY ==
--- NOTE | 2022-03-17 | DI.US.S_ITS ---
PROCEDURE: US CAROTID DOPPLER BI INDICATIONS: RIGHT CAROTID BRUIT TECHNIQUE: Color and pulse Doppler interrogation was performed of both carotid systems, with image documentation and velocity measurements. COMPARISON: [facility], , STROKE PROTOCOL, 09/01/2016, 15:54. FINDINGS: Stenosis calculations are based on SRU (Society of Radiologists in Ultrasound) criteria. The flow velocities and the arterial waveforms are normal within both carotid arterial systems. Mild atherosclerotic plaque is seen on both sides. The estimated degree of internal carotid artery stenosis is less than 50%. Antegrade flow is confirmed within both vertebral arteries. IMPRESSION: No hemodynamically significant stenosis is seen. Atherosclerotic plaque is noted bilaterally. Dictated by: Luis Carlos Reed M.D. on 03/17/2022 at 12:02 Approved by: Luis Carlos Reed M.D. on 03/17/2022 at 12:07
== END ==
PROVIDERS: Family Provider Internal Medicine; PCP Internal Medicine; Referring Provider Internal Medicine Cardiovascular Disease; Visit Provider Internal Medicine Cardiovascular Disease
DX: R09.89 Other specified symptoms and signs involving the circulatory and respiratory systems (principal); I65.23 Occlusion and stenosis of bilateral carotid arteries
CPT/HCPCS: 93880

== ENCOUNTER 2022-05-19 09:51 | Emergency (ER) | payer MEDICARE, SELFPAY ==
[2022-05-19] VITALS (16 sets, daily range): BP systolic 138–186; BP diastolic 64–91; PULSE 53–67; RESP 11–28; TEMP 36.2; O2SAT 96–100; BMI 27.6
--- NOTE | 2022-05-19 10:05 | DI.RAD.S_ITS ---
PROCEDURE: XR CHEST 1V INDICATIONS: chest pain TECHNIQUE: One view of the chest was acquired. COMPARISON: [facility], CR, XR CHEST 2V, 04/23/2019, 12:26. [facility], CR, XR CHEST 1V, 05/15/2021, 16:50. FINDINGS: Surgical changes and devices: None. Lungs and pleura: Left infrahilar opacity may be infiltrate or atelectasis. No pleural effusions or pneumothorax. Mediastinum: Mediastinal contours appear normal. Heart size is normal. Bones and chest wall: No suspicious bony lesions. Overlying soft tissues appear unremarkable. IMPRESSION: Mild left infrahilar infiltrate or atelectasis. Dictated by: Roderick Gacria M.D. on 05/19/2022 at 11:29 Approved by: Roderick Garcia M.D. on 05/19/2022 at 11:30
[2022-05-19 10:37] LABS: Add Manual Diff / Slide Review NO; Basophils Absolute Auto 0 /uL (0-100); Basophils Percent Auto 0.7 % (0-2); Eosinophils Absolute Auto 200 /uL (0-450); Eosinophils Percent Auto 2.8 % (2-4); Hematocrit 37.5 % (36-46); Hemoglobin 12.3 g/dL (12.0-16.0); Lymphocytes Absolute Auto 2300 /uL (1100-4500); Lymphocytes Percent Auto 35.1 % (25-40); Mean Corpuscular HGB Conc 32.8 % (30-36); Mean Corpuscular Hemoglobin 28.3 PG (26-34); Mean Corpuscular Volume 86.2 fL (80-100); Monocytes Absolute Auto 600 /uL (0-900); Monocytes Percent Auto 8.7 % (3-14); Neutrophils Absolute Auto 3500 /uL (1500-7000); Neutrophils Percent Auto 52.7 % (50-75); Platelet Count 209 X10^3/uL (150-400); Red Blood Cell Count 4.35 X10^6/uL (4.0-5.2); Red Cell Distribution Width 14.1 % (11.6-14.8); White Blood Cell Count 6.6 X10^3/uL (4.5-11.0)
[2022-05-19 10:42] LABS: Prothrombin Time 10.9 SECONDS (10.1-12.7)
[2022-05-19 10:45] LABS: PTT Partial Thromboplastin Tim 35 SECONDS (26-36)
[2022-05-19 10:52] LABS: Alanine Aminotransferase 16 IU/L (<35); Albumin 3.9 g/dL (3.5-5.0); Albumin Globulin Ratio 1.2 (1.0-2.8); Alkaline Phosphatase 48 U/L (38-126); Aspartate Aminotransferase 24 IU/L (14-36); BUN Creatinine Ratio 21.4 (6-22); Bilirubin Total 0.4 mg/dL (0.2-1.3); Blood Urea Nitrogen 18 mg/dL (7-17); Calcium 8.9 mg/dL (8.4-10.2); Carbon Dioxide 31 mmol/L (22-32); Chloride 101 mmol/L (98-107); Creatine Kinase 30 U/L (30-135); Estimated Glomerular Filt Rate > 60 mL/min (>60); Globulin 3.2 g/dL (1.7-4.1); Glucose 98 mg/dL (80-110); HEMOLYSIS < 15 (0-50); Lipase 56 U/L (23-300); Magnesium 2.2 mg/dL (1.6-2.3); Potassium 4.3 mmol/L (3.4-5.1); Sodium 139 mmol/L (137-145); Total Protein 7.1 g/dL (6.3-8.2)
[2022-05-19 11:04] LABS: Troponin I < 0.012 ng/mL (0.01-0.034)
[2022-05-19] MEDS: ASPIRIN 81 MG CHEW TAB 324 MG PO (11:14)
[2022-05-19 12:27] LABS: Influenza A - CEPHEID Flu A NEGATIVE (NEGATIVE); Influenza B - CEPHEID Flu B NEGATIVE (NEGATIVE); Respiratory Syncytial Virus Negative (Negative)
[2022-05-19 12:28] LABS: COVID-19 CEPHEID 4-PLEX PCR POSITIVE (Negative)
--- NOTE | 2022-05-19 13:03 | ED_ITS ---
HPI - Chest Pain General Chief Complaint: Chest Pain Stated Complaint: heart attack symptoms pain in LT neck & shoulder Time Seen by Provider: 05/19/22 11:11 Source: patient Mode of arrival: Family Vehicle Limitations: no limitations History of Present Illness HPI narrative: 87-year-old woman with a history of hypothyroidism, TIA for which takes a whole aspirin, coronary artery disease with SVT followed by Dr. Ireland, she does have a history of angina and has home nitroglycerin but does not recall using this. She notes that she began having mild upper respiratory symptoms about a week ago including sore throat, nasal congestion mild cough does not report fevers has not been significantly short of breath is not having orthopnea, nausea, vomiting, abdominal pain, diarrhea or constipation, headaches. She comes in today complaining of left-sided upper chest pain that awoke her from sleep at 10:00 a.m. this morning. She describes it as a heavy pressure that radiated up into the shoulder into the neck and the jaw and down the left arm without any notable palpitations. Related Data Home Medications Medication Instructions Recorded Confirmed [CITRACAL W/D] 600 mg PO Q DAY ##0 03/10/10 03/03/22 levothyroxine 75 mcg tablet 75 mcg PO 0600 #30 tabs 09/01/16 03/03/22 (Synthroid) metoclopramide HCl 5 mg tablet 5 mg PO BID ##0 09/01/16 03/03/22 cholecalciferol (vitamin D3) 25 2,000 unit PO QDAY ##0 12/09/16 03/03/22 mcg (1,000 unit) tablet (Vitamin D3) methylcellulose (laxative) PO HS ##0 12/09/16 03/03/22 (Citrucel Sugar Free oral powder) multivitamin (Multiple Vitamins 1 tab PO QDAY ##0 12/09/16 03/03/22 tablet) vitamin B complex (B 1 tab PO QDAY ##0 12/09/16 03/03/22 Complex-Vitamin B12 tablet) diltiazem HCl 120 mg mg PO 10/05/20 03/03/22 tablet,extended release 24 hr diltiazem HCl 60 mg tablet mg PO 10/05/20 03/03/22 metoprolol succinate 25 mg mg PO 05/22/21 10/18/22 tablet,extended release 24 hr pantoprazole 20 mg tablet,delayed mg PO 10/05/20 03/03/22 release rosuvastatin 5 mg tablet mg PO 10/05/20 03/03/22 sertraline 100 mg tablet mg PO 10/05/20 03/03/22 Previous Rx's Medication Instructions Recorded aspirin 325 mg tablet,delayed 325 mg PO QDAY #30 tabs 09/02/16 release Allergies Allergy/AdvReac Type Severity Reaction Status Date / Time iodine Allergy Severe FLUSHED, Verified 05/19/22 10:07 HOT codeine AdvReac Severe RAPID Verified 05/19/22 10:07 HEARTRATE/CHEST PAIN ciprofloxacin [From CIPRO] AdvReac Unknown NAUSEA/VOMI Verified 05/19/22 10:07 TING Review of Systems Review of Systems Narrative: Pertinent positive and negative findings as per HPI Patient History Medical History (Updated 05/19/22 @ 14:28 by Wilma Martinez MD) CAD (coronary artery disease) CVA (cerebral vascular accident) GI bleed Hyperlipidemia Hypertension Right sided weakness Small bowel obstruction Social History Smoking Status: Unknown if ever smoked Smoking Status: Unknown if ever smoked alcohol intake frequency: holidays/special occasions only Substance Use Type: does not use Exam Initial Vital Signs Initial Vital Signs: Vital Signs Temperature 97.1 F L 05/19/22 10:07 Pulse Rate 65 05/19/22 10:07 Respiratory Rate 18 05/19/22 10:07 Blood Pressure 138/64 05/19/22 10:07 Pulse Oximetry 99 05/19/22 10:07 Oxygen Delivery Method 05/19/22 10:07 General: Frail but in no acute distress. Able to give a complete history. HEENT: Moist mucous membranes, normal sclera with reactive pupils, Neck: No JVD, supple Respiratory: Lungs are clear to auscultation, no wheezing no rales no rhonchi. Full and symmetrical air movement Cardiac: Regular rate and rhythm no murmurs no bruits Abdomen: Soft, nontender, good bowel tones, no flank pain Skin: Warm and dry, no rashes Neurologic: Grossly neurologically intact with no obvious asymmetries or abnormalities Extremities: No trauma, well perfused Psych: Cooperative, appropriate insight and affect Course Orders Ordered: ED Orders 05/19/22 10:05 XR chest 1V Stat EKG-12 Lead Stat 05/19/22 10:20 Complete Blood Count AUTO DIFF Stat Comprehensive Metabolic Panel Stat Lipase Stat Magnesium Stat Partial Thromboplastin Time Stat Prothrombin Time INR Stat Troponin & CK Cardiac Panel Stat 05/19/22 11:37 Covid-19 + FLU A/B + RSV - PCR Stat 05/19/22 12:55 Trop I [Troponin I] Stat 05/19/22 13:21 Trop I [Troponin I] Stat Discontinued Medications Aspirin (Aspirin 81 Mg Chew Tab) 324 mg PO NOW ONE Stop: 05/19/22 10:06 Last Admin: 05/19/22 11:14 Dose: 324 mg Documented By: HUMERA Vital Signs Vital signs: Vital Signs - 8 hr 05/19/22 10:07 05/19/22 10:49 05/19/22 10:50 Temperature 97.1 F L Pulse Rate 65 58 L 57 L Respiratory Rate 18 11 L 15 Blood Pressure 138/64 Pulse Oximetry 99 99 98 Oxygen Delivery Method Room Air 05/19/22 10:50 05/19/22 11:00 05/19/22 11:00 Temperature Pulse Rate 55 L Respiratory Rate 12 Blood Pressure 149/71 H 153/70 H Pulse Oximetry 98 Oxygen Delivery Method 05/19/22 11:30 05/19/22 11:30 05/19/22 12:00 Temperature Pulse Rate 54 L 58 L Respiratory Rate 14 28 H Blood Pressure 164/72 H Pulse Oximetry 99 96 Oxygen Delivery Method 05/19/22 12:01 05/19/22 12:01 05/19/22 12:30 Temperature Pulse Rate 56 L 56 L Respiratory Rate 14 21 Blood Pressure 160/91 H Pulse Oximetry 98 97 Oxygen Delivery Method 05/19/22 12:31 05/19/22 12:31 05/19/22 13:00 Temperature Pulse Rate 53 L Respiratory Rate 12 Blood Pressure 164/74 H 171/78 H Pulse Oximetry 100 Oxygen Delivery Method 05/19/22 13:00 Temperature Pulse Rate 55 L Respiratory Rate 17 Blood Pressure Pulse Oximetry 99 Oxygen Delivery Method MDM - Chest Pain Lab Data Result diagrams: 05/19/22 10:20 05/19/22 10:20 Labs: Lab Results 05/19/22 05/19/22 05/19/22 Range/Units 10:20 10:20 10:20 WBC 6.6 (4.5-11.0) X10^3/uL RBC 4.35 (4.0-5.2) X10^6/uL Hgb 12.3 (12.0-16.0) g/dL Hct 37.5 (36-46) % MCV 86.2 (80-100) fL MCH 28.3 (26-34) PG MCHC 32.8 (30-36) % RDW 14.1 (11.6-14.8) % Plt Count 209 (150-400) X10^3/uL Neut % (Auto) 52.7 (50-75) % Lymph % (Auto) 35.1 (25-40) % [place] % (Auto) 8.7 (3-14) % Eos % (Auto) 2.8 (2-4) % Baso % (Auto) 0.7 (0-2) % Neut # (Auto) 3500 (6113-7853) /uL Lymph # (Auto) 2300 (9625-3051) /uL [place] # (Auto) 600 (0-900) /uL Eos # (Auto) 200 (0-450) /uL Baso # (Auto) 0 (0-100) /uL PT 10.9 (10.1-12.7) SECONDS INR 1.0 (0.9-1.3) APTT 35 (26-36) SECONDS Sodium 139 (137-145) mmol/L Potassium 4.3 (3.4-5.1) mmol/L Chloride 101 (98-107) mmol/L Carbon Dioxide 31 (22-32) mmol/L BUN 18 H (7-17) mg/dL Creatinine 0.84 (0.52-1.04) mg/dL Estimated GFR > 60 (>60) mL/min BUN/Creatinine Ratio 21.4 (6-22) Glucose 98 (80-110) mg/dL Calcium 8.9 (8.4-10.2) mg/dL Magnesium 2.2 (1.6-2.3) mg/dL Total Bilirubin 0.4 (0.2-1.3) mg/dL AST 24 (14-36) IU/L ALT 16 (<35) IU/L Alkaline Phosphatase 48 (38-126) U/L Total Creatine Kinase 30 (30-135) U/L CK-MB (CK-2) TNP CK-MB (CK-2) Rel Index TNP Troponin I < 0.012 (0.01-0.034) ng/mL Total Protein 7.1 (6.3-8.2) g/dL Albumin 3.9 (3.5-5.0) g/dL Globulin 3.2 (1.7-4.1) g/dL Albumin/Globulin Ratio 1.2 (1.0-2.8) Lipase 56 (23-300) U/L SARS-CoV-2 (PCR) (Negative) Influenza A (RT-PCR) (NEGATIVE) Influenza B (RT-PCR) (NEGATIVE) RSV (PCR) (Negative) 05/19/22 05/19/22 Range/Units 11:37 12:55 WBC (4.5-11.0) X10^3/uL RBC (4.0-5.2) X10^6/uL Hgb (12.0-16.0) g/dL Hct (36-46) % MCV (80-100) fL MCH (26-34) PG MCHC (30-36) % RDW (11.6-14.8) % Plt Count (150-400) X10^3/uL Neut % (Auto) (50-75) % Lymph % (Auto) (25-40) % [place] % (Auto) (3-14) % Eos % (Auto) (2-4) % Baso % (Auto) (0-2) % Neut # (Auto) (1800-3344) /uL Lymph # (Auto) (6311-0087) /uL [place] # (Auto) (0-900) /uL Eos # (Auto) (0-450) /uL Baso # (Auto) (0-100) /uL PT (10.1-12.7) SECONDS INR (0.9-1.3) APTT (26-36) SECONDS Sodium (137-145) mmol/L Potassium (3.4-5.1) mmol/L Chloride (98-107) mmol/L Carbon Dioxide (22-32) mmol/L BUN (7-17) mg/dL Creatinine (0.52-1.04) mg/dL Estimated GFR (>60) mL/min BUN/Creatinine Ratio (6-22) Glucose (80-110) mg/dL Calcium (8.4-10.2) mg/dL Magnesium (1.6-2.3) mg/dL Total Bilirubin (0.2-1.3) mg/dL AST (14-36) IU/L ALT (<35) IU/L Alkaline Phosphatase (38-126) U/L Total Creatine Kinase (30-135) U/L CK-MB (CK-2) CK-MB (CK-2) Rel Index Troponin I < 0.012 (0.01-0.034) ng/mL Total Protein (6.3-8.2) g/dL Albumin (3.5-5.0) g/dL Globulin (1.7-4.1) g/dL Albumin/Globulin Ratio (1.0-2.8) Lipase (23-300) U/L SARS-CoV-2 (PCR) Positive H (Negative) Influenza A (RT-PCR) Flu a negative (NEGATIVE) Influenza B (RT-PCR) Flu b negative (NEGATIVE) RSV (PCR) Negative (Negative) Imaging Data Chest x-ray: Radiologist's Impression: FINDINGS:? ? Surgical changes and devices:? None.? ? Lungs and pleura:? Left infrahilar opacity may be infiltrate or atelectasis.? No pleural effusions or pneumothorax.? ? Mediastinum:? Mediastinal contours appear normal.? Heart size is normal.? ? Bones and chest wall:? No suspicious bony lesions.? Overlying soft tissues appear unremarkable.? ? IMPRESSION:? Mild left infrahilar infiltrate or atelectasis. ? ? Dictated by: Roderick Garcia M.D. on 05/19/2022 at 11:29 ? ? ECG Data Interpretation: Sinus rhythm at a rate of 64 Normal intervals, normal axis No acute ischemic changes Independently interpreted by me MDM Narrative Medical decision making narrative: 87-year-old woman presents with left upper chest/shoulder/jaw pain that awoke her from sleep at 11:00 a.m. this morning. She is COVID positive which is a new diagnosis for her. She reports only mild upper respiratory symptoms is not having any issues with dramatic cough or hypoxia. Differential: Acute coronary syndrome, pulmonary emboli, bacterial superinfection, pneumothorax, shingles, musculoskeletal abnormality, reflux Patient is informed of her COVID diagnosis, we will give her 15 mg of IV Toradol to see if this influences her pain to see if there is a pleuritic component to it. Will need to repeat troponin at this time, it is approximately 3 hours after initial blood draw. Repeat troponin remains unremarkable. Patient is re-examined and she remains pain-free. At this point I do not suspect cardiac etiology or pneumonia however musculoskeletal abnormality as well as simply pleuritic pain are likely explanations. Patient can take nonsteroidals were encourage her to do so if she has recurrent pain and return if she develops new symptoms. Questions are answered for both the patient and her daughter. Discharge Plan Departure Patient Disposition: Home Clinical Impression: Chest pain, pleuritic, COVID-19 Instructions: DI for Pleurisy Activity Restrictions/Additional Instructions: Thank you for coming in today Your PCR test was positive for COVID today however because you are vaccinated this feels like a typical rather mild cold. I anticipate that you continue to h eal without additional difficulties. The left-sided upper chest neck and arm pain may be related to inflammatory changes to the lining of the lungs after a viral syndrome. It may also be musculoskeletal in nature. At this point it does not look like it is life- threatening it is not related to your heart, I do not suspect blood clots in your lungs and I do not see any overwhelming bacterial infections. Using Tylenol or ibuprofen can be helpful with this pain if it recurs. If you find that you are getting worse or develop any new symptoms, please feel free to return to the emergency department for further evaluation. Prescriptions: No Action rosuvastatin 5 mg tablet PO metoprolol succinate 25 mg tablet extended release 24 hr PO Cardizem LA 120 mg tablet extended release 24 hr PO pantoprazole 20 mg tablet,delayed release (DR/EC) PO sertraline 100 mg tablet PO diltiazem HCl 60 mg tablet PO [CITRACAL W/D] 600 mg PO Q DAY Qty: 0 metoclopramide HCl 5 MG tablet 5 mg PO BID Qty: 0 levothyroxine [Synthroid] 75 MCG tablet 75 mcg PO 0600 Qty: 30 aspirin 325 MG tablet,delayed release (DR/EC) 325 mg PO QDAY Qty: 30 0RF cholecalciferol (vitamin D3) [Vitamin D3] 1,000 UNIT tablet 2,000 unit PO QDAY Qty: 0 multivitamin [Multiple Vitamins] 1 EACH tablet 1 tab PO QDAY Qty: 0 vitamin B complex [B Complex-Vitamin B12] 1 EACH tablet 1 tab PO QDAY Qty: 0 methylcellulose (laxative) [Citrucel Sugar Free] 479 GM powder PO HS Qty: 0 Referrals: Westley Stockton MD [Primary Care Provider] - Stand Alone Forms: Patient Portal/API
[2022-05-19 14:01] LABS: Troponin I < 0.012 ng/mL (0.01-0.034)
== END 2022-05-19 15:03 | disposition home or self-care (01) ==
PROVIDERS: Emergency Provider Emergency Medicine; Family Provider Internal Medicine; PCP Internal Medicine
DX: U07.1 COVID-19 (principal); R07.89 Other chest pain; Z79.899 Other long term (current) drug therapy
CPT/HCPCS: 0241U; 36415; 71045; 80053; 81003; 82550; 83690; 83735; 84484; 85025; 85610; 85730; 93005; 99284

== ENCOUNTER → 2022-06-08 12:07 | Outpatient (CLI) | payer MEDICARE, SELFPAY ==
--- NOTE | 2022-06-08 12:09 | DI.US.S_ITS ---
PROCEDURE: US PERIP VENOUS LOW EXTREM LT INDICATIONS: CALF SWELLING, POSSIBLE HEMATOMA STATUS POST FALL TECHNIQUE: Real-time imaging, as well as color and pulse Doppler interrogation, were performed of the lower extremity deep veins from the inguinal ligament to the popliteal fossa. COMPARISON: [facility], , [facility] VENOUS LOW EXTREM RT, 01/03/2019, 16:29. FINDINGS: The common femoral, femoral and popliteal veins are normally compressible, and free of intraluminal thrombus. Color and pulse Doppler demonstrate normal phasic intraluminal flow. There is normal augmentation response to distal compression maneuver. IMPRESSION: Negative for deep venous thrombosis. Dictated by: Luis Carlos Reed M.D. on 06/08/2022 at 11:44 Approved by: Luis Carlos Reed M.D. on 06/08/2022 at 11:47
--- NOTE | 2022-06-08 12:13 | DI.RAD.S_ITS ---
PROCEDURE: XR TIBIA FIBULA LT 2V INDICATIONS: LOWER LEG INJURY TECHNIQUE: 2 views of the tibia and fibula were acquired. COMPARISON: None. FINDINGS: Bones: Osseous density adjacent to the tip of the lateral malleolus. No suspicious bony lesions. Left knee arthroplasty present and incompletely evaluated. Soft tissues: No suspicious soft tissue calcifications or masses. Nonspecific soft tissue edema seen in the distal lower leg and ankle. IMPRESSION: 1. Left knee arthroplasty is present and incompletely evaluated; otherwise normal appearance of the left lower leg. 2. Osseous density adjacent to the tip of the lateral malleolus of indeterminate age and avulsion fracture cannot be excluded. Recommend correlation to point tenderness. Dictated by: Manolo Ferrara Maria Interpreted: Marck Brandt MD on 06/08/2022 at 13:13 Transcribed by: MARY on 06/08/2022 at 13:15 Approved by: Marck Brandt M.D. on 06/08/2022 at 20:24
== END ==
PROVIDERS: Family Provider Internal Medicine; PCP Internal Medicine; Referring Provider Nurse Practitioner Family; Visit Provider Nurse Practitioner Family
DX: S89.92XA Unspecified injury of left lower leg, initial encounter (principal); M79.89 Other specified soft tissue disorders; W19.XXXA Unspecified fall, initial encounter; Z96.652 Presence of left artificial knee joint
CPT/HCPCS: 73590; 93971

== ENCOUNTER → 2022-07-16 10:05 | Outpatient (CLI) | payer MEDICARE, SELFPAY ==
[2022-07-16 11:51] LABS: Add Manual Diff / Slide Review NO; Basophils Absolute Auto 100 /uL (0-100); Basophils Percent Auto 0.7 % (0-2); Eosinophils Absolute Auto 200 /uL (0-450); Eosinophils Percent Auto 2.9 % (2-4); Hematocrit 36.2 % (36-46); Lymphocytes Absolute Auto 2300 /uL (1100-4500); Lymphocytes Percent Auto 29.7 % (25-40); Mean Corpuscular Hemoglobin 28.2 PG (26-34); Mean Corpuscular Volume 85.6 fL (80-100); Monocytes Absolute Auto 600 /uL (0-900); Monocytes Percent Auto 7.9 % (3-14); Neutrophils Absolute Auto 4500 /uL (1500-7000); Neutrophils Percent Auto 58.8 % (50-75); Platelet Count 187 X10^3/uL (150-400); Red Blood Cell Count 4.23 X10^6/uL (4.0-5.2); White Blood Cell Count 7.6 X10^3/uL (4.5-11.0)
[2022-07-16 12:05] LABS: Alanine Aminotransferase 16 IU/L (<35); Albumin Globulin Ratio 1.5 (1.0-2.8); Alkaline Phosphatase 46 U/L (38-126); Aspartate Aminotransferase 25 IU/L (14-36); BUN Creatinine Ratio 30.4 (6-22); Bilirubin Total 0.4 mg/dL (0.2-1.3); Blood Urea Nitrogen 28 mg/dL (7-17); Calcium 9.3 mg/dL (8.4-10.2); Carbon Dioxide 30 mmol/L (22-32); Chloride 103 mmol/L (98-107); Estimated Glomerular Filt Rate > 60 mL/min (>60); Globulin 2.6 g/dL (1.7-4.1); Glucose 95 mg/dL (80-110); HEMOLYSIS < 15 (0-50); Potassium 4.6 mmol/L (3.4-5.1); Sodium 139 mmol/L (137-145); Total Protein 6.6 g/dL (6.3-8.2); Uric Acid 4.8 mg/dL (2.5-6.2)
[2022-07-16 12:11] LABS: High Sensitivity CRP - Cardiac 7.2 mg/L (1.0-3.0); Rheumatoid Factor 14.3 IU/mL (<12.0)
[2022-07-16 12:12] LABS: Erythrocyte Sedimentation Rate 35 MM/HR (0-20)
[2022-07-16 12:36] LABS: Thyroid Stimulating Hormone 1.63 uIU/mL (0.47-4.68)
[2022-07-18 20:08] LABS: SS A Ro Sjogrens Antibody < 0.2 AI (0.0-0.9); SS B La Sjogrens Antibody < 0.2 AI (0.0-0.9)
[2022-07-20 15:17] LABS: ANA Screen, IFA Negative (.)
== END ==
PROVIDERS: Family Provider Internal Medicine; PCP Family Medicine; Referring Provider Ophthalmology; Visit Provider Ophthalmology
DX: H53.2 Diplopia (principal); H57.11 Ocular pain, right eye
CPT/HCPCS: 36415; 80053; 84443; 84550; 85025; 85651; 86038; 86140; 86235; 86430

== ENCOUNTER → 2022-07-29 11:35 | Outpatient (CLI) | payer MEDICARE, SELFPAY ==
[2022-07-29 13:11] LABS: C-Reactive Protein Quant < 0.5 mg/dL (<1.0)
[2022-07-29 13:24] LABS: Erythrocyte Sedimentation Rate 14 MM/HR (0-20)
== END ==
PROVIDERS: Family Provider Internal Medicine; PCP Family Medicine; Referring Provider Family Medicine; Visit Provider Family Medicine
DX: M31.6 Other giant cell arteritis (principal)
CPT/HCPCS: 36415; 85651; 86140

== ENCOUNTER 2022-08-03 13:29 | Emergency (ER) | payer MEDICARE, SELFPAY ==
[2022-08-03 13:38] VITALS: BP 138/70; PULSE 69; RESP 18; TEMP 36.5; O2SAT 98; BMI 30.2
--- NOTE | 2022-08-03 13:42 | ED_ITS ---
HPI - General Adult General Chief complaint: Trauma Stated complaint: fell & hit head,LT knee & side Time Seen by Provider: 08/03/22 13:34 Source: patient Mode of arrival: Wheelchair Limitations: no limitations History of Present Illness HPI narrative: 87-year-old female. Not on anticoagulation. Is here for evaluation of injuries she sustained when she was walking into physical therapy. She was using her cane. She states she caught the toes on her right foot on the carpet and fell forward. She did hit the left side of her head. There was no loss of consciousness. She also hit the left side of her chest. She was able to get up and walk afterwards. She also describes left hip discomfort but can walk on it. Related Data Home Medications Medication Instructions Recorded Confirmed levothyroxine 75 mcg tablet 75 mcg PO 0600 #30 tabs 09/01/16 07/29/22 (Synthroid) cholecalciferol (vitamin D3) 25 2,000 unit PO QDAY ##0 12/09/16 07/29/22 mcg (1,000 unit) tablet (Vitamin D3) metoprolol succinate 25 mg mg PO 10/05/20 07/29/22 tablet,extended release 24 hr pantoprazole 20 mg tablet,delayed mg PO 10/05/20 07/29/22 release rosuvastatin 5 mg tablet mg PO 10/05/20 07/29/22 sertraline 100 mg tablet mg PO 10/05/20 07/29/22 conjugated estrogens 0.625 mg 0.625 mg PO .twice a week 06/17/22 07/29/22 tablet (Premarin) diltiazem HCl 120 mg 120 mg PO DAILY 06/17/22 07/29/22 tablet,extended release 24 hr (Cardizem LA) nitroglycerin 0.4 mg sublingual 0.4 mg sublingual ONCE PRN 06/17/22 07/29/22 tablet (Nitrostat) Previous Rx's Medication Instructions Recorded aspirin 325 mg tablet,delayed 325 mg PO QDAY #30 tabs 09/02/16 release Disabled parking permit #1 ea 06/17/22 prednisone 20 mg tablet 60 mg PO DAILY #90 tabs 07/20/22 prednisone 50 mg tablet 50 mg PO DAILY 14 days #14 tabs 07/29/22 Allergies Allergy/AdvReac Type Severity Reaction Status Date / Time iodine Allergy Severe FLUSHED, Verified 07/29/22 11:00 HOT codeine AdvReac Severe RAPID Verified 07/29/22 11:00 HEARTRATE/CHEST PAIN ciprofloxacin [From CIPRO] AdvReac Unknown NAUSEA/VOMI Verified 07/29/22 11:00 TING Review of Systems Constitutional Constitutional: Reports system reviewed and no additional complaints, except as documented Respiratory Respiratory: Reports system reviewed and no additional complaints, except as documented Gastrointestinal Gastrointestinal: Reports system reviewed and no additional complaints, except as documented Genitourinary Genitourinary: Reports system reviewed and no additional complaints, except as documented Integumentary/Breasts Skin/Breast: Reports system reviewed and no additional complaints, except as documented Neurologic Neurologic: Reports system reviewed and no additional complaints, except as documented Hematologic/Lymphatic On Anticoagulants: No Patient History Medical History CAD (coronary artery disease) CVA (cerebral vascular accident) GI bleed Giant cell arteritis Hyperlipidemia Hypertension Right sided weakness Small bowel obstruction Social History Smoking Status: Never smoker Smoking Status: Never smoker alcohol intake frequency: holidays/special occasions only Substance Use Type: does not use Exam Initial Vital Signs Initial Vital Signs: Vital Signs Temperature 97.7 F 08/03/22 13:38 Pulse Rate 69 08/03/22 13:38 Respiratory Rate 18 08/03/22 13:38 Blood Pressure 138/70 08/03/22 13:38 Pulse Oximetry 98 08/03/22 13:38 Oxygen Delivery Method Room Air 08/03/22 13:38 Const General: cooperative, comfortable and No ill appearing [facility] Head: normal to inspection, normocephalic and No abrasion Nose: external nose normal Face and sinus: normal facial exam Chest Chest: No crepitus and tenderness (Left-sided chest) Resp Effort & Inspection: normal respiratory effort Auscultation: clear to auscultation bilaterally Cardio Rate: regular rate Rhythm: regular rhythm GI Inspection: normal to inspection Palpation: soft and No tender Back/Spine/Pelvis Cervical Spine: No cervical muscular tenderness and No cervical spinal tenderness Skin General: no rashes or lesions noted Neuro General: patient alert, patient awake, patient oriented x3 and moves all extremities Speech: speech normal Gait: normal gait Extrem General: normal to inspection and capillary refill normal Scores [facility] [place] coma scale eye opening: Spontaneous [place] coma scale verbal response: Orientated [place] coma scale motor response: Obey commands [place] coma scale total score: 15 Nexus Score for C-Spine Focal Neurologic deficit present: No Midline spinal tenderness present: No Altered level of conciousness present: No Intoxication present: No Distracting Injury Present: No Nexus Criteria for C-spine: 0 Course Orders Ordered: ED Orders 08/03/22 13:43 CT head/brain wo con Stat XR ribs LT min 3V w CXR1V Stat Vital Signs Vital signs: Vital Signs - 8 hr 08/03/22 13:38 Temperature 97.7 F Pulse Rate 69 Respiratory Rate 18 Blood Pressure 138/70 Pulse Oximetry 98 Oxygen Delivery Method Room Air Medical Decision Making Imaging Data CT scan - head: Radiologist's Impression: PROCEDURE:? CT HEAD/BRAIN WO CON ? INDICATIONS:? fall hit L side of head ? TECHNIQUE:? Noncontrast 4.5 mm thick angled axial sections acquired from the foramen magnum to the vertex, with coronal and sagittal reformats.? For radiation dose reduction, the following was used:? automated exposure control, adjustment of mA and/or kV according to patient size.? ? COMPARISON:? [facility], CT, CT HEAD/BRAIN WO CON, 10/30/2017, 10:00. ? FINDINGS:? Image quality:? Excellent.? ? CSF spaces:? Basal cisterns are patent.? No extra-axial fluid collections.? The ventricles are symmetric in size and shape.? ? Brain:? No intracranial bleeds or masses.? There is cerebral volume loss for age, with resultant ventricular and sulcal prominence.? There are periventricular and deep white matter chronic small vessel ischemic changes.? There is intracranial internal carotid artery atherosclerosis.? ? Skull and face:? Calvarium and visualized facial bones appear intact, without suspicious lesions.? ? Sinuses:? Visualized sinuses and mastoids are clear.? ? IMPRESSION:? ? 1. No acute intracranial process. ? 2. Moderate atrophy and chronic microvascular ischemic changes. rib X-ray: Radiologist's Impression: PROCEDURE:? XR RIBS LT MIN 3V W CXR1V ? INDICATIONS:? fall L sided rib pain ? TECHNIQUE:? 3 views of the left ribs were acquired, along with a single view chest.? ? COMPARISON:? None. ? FINDINGS:? ? Surgical changes and devices:? None.? ? Bones and chest wall:? No fractures or dislocations.? No suspicious bony lesions.? Overlying soft tissues appear unremarkable.? ? Lungs and pleura:? No pleural effusions or pneumothorax.? Lungs appear clear.? ? Mediastinum:? Mediastinal contours appear normal.? Heart size is normal.? ? IMPRESSION:? No visualized acute fracture or dislocation. However, if clinical concern and/or pain persist, short interval imaging followup in 7-10 days is recommended, as occult injury cannot be definitively excluded. [facility] Narrative Medical decision making narrative: This was a mechanical fall. Not on anticoagulation. Has full range of motion of her left hip and left knee. Low suspicion for fractures. Head CT shows no acute pathology. X-rays of her ribs showed no displaced rib fractures. I did discuss this with her. We did discuss the possibility of a rib fracture that is not seen on the x-ray. Will discharge patient home. No change in her medications. She was given return precautions. She expressed understanding and agreement. Discharge Plan Departure Patient Disposition: Home Clinical Impression: Closed head injury, Fall, Contusion of rib on left side Instructions: DI for Rib Contusion, How to Prevent Falls, Closed Head Injury Activity Restrictions/Additional Instructions: I recommend that you continue to take all of your medications as directed. Con tact your primary doctor for a follow-up. Return to the emergency department for any new or worsening symptoms. Prescriptions: No Action rosuvastatin 5 mg tablet PO metoprolol succinate 25 mg tablet extended release 24 hr PO pantoprazole 20 mg tablet,delayed release (DR/EC) PO sertraline 100 mg tablet PO levothyroxine [Synthroid] 75 MCG tablet 75 mcg PO 0600 Qty: 30 aspirin 325 MG tablet,delayed release (DR/EC) 325 mg PO QDAY Qty: 30 0RF cholecalciferol (vitamin D3) [Vitamin D3] 1,000 UNIT tablet 2,000 unit PO QDAY Qty: 0 prednisone 20 mg tablet 60 mg PO DAILY Qty: 90 0RF prednisone 50 mg tablet 50 mg PO DAILY 14 Days Qty: 14 0RF Cardizem LA 120 mg tablet extended release 24 hr 120 mg PO DAILY nitroglycerin [Nitrostat] 0.4 mg tablet, sublingual 0.4 mg sublingual ONCE PRN Rx Instructions: as a single dose; administer 5-10 minutes before situation known to precipitate angina attack Premarin 0.625 mg tablet 0.625 mg PO .twice a week (DME) Disabled parking permit See Rx Instructions .ROUTE .MEDSULY Qty: 1 0RF Rx Instructions: I find this patient to be medically disabled and qualified for disabled parking as indicated, and signed, on the accompanying disabled parking application for individuals. Referrals: Akhil Scruggs DO [Primary Care Provider] - Stand Alone Forms: Patient Portal/API
--- NOTE | 2022-08-03 13:43 | DI.CT.S_ITS ---
PROCEDURE: CT HEAD/BRAIN WO CON INDICATIONS: fall hit L side of head TECHNIQUE: Noncontrast 4.5 mm thick angled axial sections acquired from the foramen magnum to the vertex, with coronal and sagittal reformats. For radiation dose reduction, the following was used: automated exposure control, adjustment of mA and/or kV according to patient size. COMPARISON: [facility], CT, CT HEAD/BRAIN WO CON, 10/30/2017, 10:00. FINDINGS: Image quality: Excellent. CSF spaces: Basal cisterns are patent. No extra-axial fluid collections. The ventricles are symmetric in size and shape. Brain: No intracranial bleeds or masses. There is cerebral volume loss for age, with resultant ventricular and sulcal prominence. There are periventricular and deep white matter chronic small vessel ischemic changes. There is intracranial internal carotid artery atherosclerosis. Skull and face: Calvarium and visualized facial bones appear intact, without suspicious lesions. Sinuses: Visualized sinuses and mastoids are clear. IMPRESSION: 1. No acute intracranial process. 2. Moderate atrophy and chronic microvascular ischemic changes. Dictated by: Kia Orosco M.D. on 08/03/2022 at 14:06 Approved by: Kia Orosco M.D. on 08/03/2022 at 14:07
--- NOTE | 2022-08-03 13:43 | DI.RAD.S_ITS ---
PROCEDURE: XR RIBS LT MIN 3V W CXR1V INDICATIONS: fall L sided rib pain TECHNIQUE: 3 views of the left ribs were acquired, along with a single view chest. COMPARISON: None. FINDINGS: Surgical changes and devices: None. Bones and chest wall: No fractures or dislocations. No suspicious bony lesions. Overlying soft tissues appear unremarkable. Lungs and pleura: No pleural effusions or pneumothorax. Lungs appear clear. Mediastinum: Mediastinal contours appear normal. Heart size is normal. IMPRESSION: No visualized acute fracture or dislocation. However, if clinical concern and/or pain persist, short interval imaging followup in 7-10 days is recommended, as occult injury cannot be definitively excluded. Dictated by: Kia Orosco M.D. on 08/03/2022 at 14:43 Approved by: iKa Orosco M.D. on 08/03/2022 at 14:46
[2022-08-03 15:09] VITALS: BP 149/70; PULSE 64; RESP 18; O2SAT 97
== END 2022-08-03 15:09 | disposition home or self-care (01) ==
PROVIDERS: Emergency Provider Emergency Medicine; Family Provider Internal Medicine; PCP Family Medicine
DX: S09.8XXA Other specified injuries of head, initial encounter (principal); S20.212A Contusion of left front wall of thorax, initial encounter; W01.0XXA Fall on same level from slipping, tripping and stumbling without subsequent striking against object, initial encounter
CPT/HCPCS: 70450; 71101; 99283; 99284

== ENCOUNTER → 2022-08-28 12:15 | Outpatient (CLI) | payer MEDICARE, SELFPAY ==
[2022-08-28 13:17] LABS: C-Reactive Protein Quant < 0.5 mg/dL (<1.0)
[2022-08-28 14:03] LABS: Erythrocyte Sedimentation Rate 8 MM/HR (0-20)
== END ==
PROVIDERS: Family Provider Internal Medicine; PCP Family Medicine; Referring Provider Family Medicine; Visit Provider Family Medicine
DX: M31.6 Other giant cell arteritis (principal)
CPT/HCPCS: 36415; 85651; 86140

== ENCOUNTER → 2022-09-04 15:15 | Outpatient (CLI) | payer MEDICARE, SELFPAY ==
--- NOTE | 2022-09-04 | DI.MG.S_ITS ---
BILATERAL DIGITAL SCREENING MAMMOGRAM 3D/2D WITH CAD: 09/04/2022 CLINICAL: Routine screening. Comparison is made to exams dated: 09/02/2021 mammogram, 09/27/2018 mammogram, and 09/06/2014 mammogram - [facility]. There are scattered areas of fibroglandular density in both breasts (category b / 25%-50% glandular tissue). Current study was also evaluated with a Computer Aided Detection (CAD) system. There are benign vascular calcifications in both breasts. No significant masses, calcifications, or other findings are seen in either breast. There has been no significant interval change. IMPRESSION: BENIGN There is no mammographic evidence of malignancy. A 1 year screening mammogram is recommended. This exam was interpreted at Station ID: [id number]. NOTE: For mammograms, a report in lay terms will be sent to the patient. Approximately 15% of breast malignancies will not be visualized mammographically. In the management of a palpable breast mass, a negative mammogram must not discourage biopsy of a clinically suspicious lesion. Electronically Signed By: Cari garcia/yessenia:09/04/2022 16:07:59 letter sent: Normal Exam ACR BI-RADS Category 2: Benign Finding(s) [id number]
== END ==
PROVIDERS: Family Provider Internal Medicine; PCP Family Medicine; Referring Provider Family Medicine; Visit Provider Family Medicine
DX: Z12.31 Encounter for screening mammogram for malignant neoplasm of breast (principal)
CPT/HCPCS: 77063; 77067

== ENCOUNTER 2022-09-07 20:05 | Emergency (ER) | payer OTHER, MEDICARE, SELFPAY ==
[2022-09-07] VITALS (12 sets, daily range): BP systolic 185–230; BP diastolic 76–95; PULSE 58–72; RESP 14–34; TEMP 36.9; O2SAT 94–99; BMI 30.8
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
[2022-09-07 20:44] LABS: Add Manual Diff / Slide Review NO; Basophils Absolute Auto 100 /uL (0-100); Basophils Percent Auto 0.4 % (0-2); Eosinophils Absolute Auto 0 /uL (0-450); Hematocrit 35.6 % (36-46); Hemoglobin 12.1 g/dL (12.0-16.0); Lymphocytes Absolute Auto 1300 /uL (1100-4500); Lymphocytes Percent Auto 9.2 % (25-40); Mean Corpuscular Hemoglobin 29.5 PG (26-34); Mean Corpuscular Volume 86.7 fL (80-100); Monocytes Absolute Auto 500 /uL (0-900); Monocytes Percent Auto 3.5 % (3-14); Neutrophils Absolute Auto 12100 /uL (1500-7000); Neutrophils Percent Auto 86.9 % (50-75); Platelet Count 171 X10^3/uL (150-400); Red Cell Distribution Width 16.4 % (11.6-14.8)
[2022-09-07 20:58] LABS: Alanine Aminotransferase 37 IU/L (<35); Albumin 3.6 g/dL (3.5-5.0); Albumin Globulin Ratio 1.6 (1.0-2.8); Alkaline Phosphatase 44 U/L (38-126); Aspartate Aminotransferase 33 IU/L (14-36); BUN Creatinine Ratio 36.4 (6-22); Bilirubin Total 0.5 mg/dL (0.2-1.3); Blood Urea Nitrogen 32 mg/dL (7-17); Calcium 8.8 mg/dL (8.4-10.2); Carbon Dioxide 31 mmol/L (22-32); Chloride 101 mmol/L (98-107); Creatine Kinase 61 U/L (30-135); Estimated Glomerular Filt Rate > 60 mL/min (>60); Globulin 2.3 g/dL (1.7-4.1); Glucose 157 mg/dL (80-110); HEMOLYSIS < 15 (0-50); Potassium 4.2 mmol/L (3.4-5.1); Sodium 135 mmol/L (137-145); Total Protein 5.9 g/dL (6.3-8.2)
[2022-09-07 21:09] LABS: Troponin I < 0.012 ng/mL (0.01-0.034)
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
[2022-09-07] MEDS: HYDROCODONE/ACET 5/325 TABLET 1 TAB PO (22:00)
[2022-09-07] MEDS: diphenhydrAMINE 50 MG/ML VIAL 25 MG IV (22:02)
[2022-09-07] MEDS: HYDROCODONE/ACET 5/325 PREPACK 1 BOTTLE MISC (23:35)
== END 2022-09-07 23:47 | disposition home or self-care (01) ==
PROVIDERS: Emergency Provider Emergency Medicine; Family Provider Internal Medicine; PCP Family Medicine
DX: S20.212A Contusion of left front wall of thorax, initial encounter (principal); I10 Essential (primary) hypertension; V89.2XXA Person injured in unspecified motor-vehicle accident, traffic, initial encounter
CPT/HCPCS: 36415; 71045; 71275; 74174; 80053; 82550; 84484; 85025; 93005; 93010; 96374; 99285; J1200; Q9967

== ENCOUNTER → 2022-09-15 10:19 | Outpatient (CLI) | payer OTHER, MEDICARE, SELFPAY ==
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
== END ==
PROVIDERS: Family Provider Internal Medicine; PCP Family Medicine; Referring Provider Family Medicine; Visit Provider Family Medicine
DX: M47.814 Spondylosis without myelopathy or radiculopathy, thoracic region (principal); M54.6 Pain in thoracic spine
CPT/HCPCS: 72072

== ENCOUNTER → 2022-09-21 15:00 | Outpatient (CLI) | payer MEDICARE, SELFPAY ==
--- NOTE | 2022-09-21 15:12 | DI.DEXA.S_ITS ---
Bone Density Report Name: CARIN FIELDS Age: 87 Sex: Female Ethnicity: White Date of : 1935 Indication: osteopenia; Referring Provider: CARLOS GONZALEZ Study: Bone densitometry was performed. Exam Date: September 21, 2022 Accession number: [id number] Bone Density: Region BMD T-score Z-score Classification Femoral Neck (Left) 0.708 -1.3 1.3 Osteopenia Total Hip (Left) 0.799 -1.2 1.2 Osteopenia Femoral Neck (Right) 0.683 -1.5 1.0 Osteopenia Total Hip (Right) 0.740 -1.7 0.7 Osteopenia Total Hip Mean 0.769 -1.5 1.0 Osteopenia Total Forearm (Left) 0.527 -1.0 Normal 1/3 Forearm (Left) 0.678 -0.3 Normal UD Forearm (Left) 0.377 -1.1 Osteopenia World Health Organization criteria for BMD impression classify patients as: Normal (T-score at or above -1.0), Osteopenia (T-score between -1.0 and -2.5), or Osteoporosis (T-score at or below -2.5). 10-year Fracture Risk(1): Major Osteoporotic Fracture 13% Hip Fracture 3.4% Reported Risk Factors: [place] (), Neck BMD=0.683, BMI=31.2 (1) FRAX(R) Version 3.08. Fracture probability calculated for an untreated patient. Fracture probability may be lower if the patient has received treatment. Previous Exams: -- Region Exam Age BMD T-score BMD Change BMD Change Date g/cm2 vs Baseline vs Previous -- Total Hip(Left) 09/21/2022 87 0.799 -1.2 0.007 (0.9%)# 0.007 (0.9%)# 10/24/2019 84 0.792 -1.2 Total Hip(Right) 09/21/2022 87 0.740 -1.7 0.059 (8.7%)# 0.059 (8.7%)# 10/24/2019 84 0.680 -2.1 -- *Denotes significance at 95% confidence level, LSC for Total Hip = 0.027 g/cm2 # Denotes dissimilar scan types or analysis methods Impression: The patient has low bone mass, based on the Right Total Hip T-score. The patient has an estimated ten-year risk of hip fracture of 3.4% and an estimated ten-year risk of major fracture of 13%, based on the WHO FRAX algorithm. No significant bone loss was observed. Discussion: BONE DENSITY IS LOW AT ONE OR MORE SKELETAL SITES. THE PATIENT'S BMD AND CLINICAL RISK FACTORS CONTRIBUTE TO THIS PATIENT'S INCREASED RISK OF FRACTURE. This patient's lowest T-score is low at one or more skeletal sites. It meets the World Health Organization's (WHO) criteria for ?low bone mass? (T-score between -1.0 and -2.5). The patient's 10-year risk of hip fracture as calculated by FRAX exceeds the threshold where pharmacological therapy is recommended by the National Osteoporosis Foundation (NOF). However, all treatment decisions require clinical judgment and consideration of individual patient factors, including patient preferences, comorbidities, previous drug use, risk factors not captured in the FRAX model (e.g., frailty, falls, vitamin D deficiency, increased bone turnover, interval significant decline in bone density) and possible under or overestimation of fracture risk by FRAX. The patient should follow a healthful lifestyle (good nutrition with adequate calcium and vitamin D, and appropriate weight-bearing exercise). Follow-Up: Consider a repeat BMD and Vertebral Fracture Assessment (VFA) exam in 2 years or sooner if medically necessary, to reassess this patient's status. Reported by: FARHEEN SYKES MD on 09/21/2022 3:20:00 PM.
== END ==
PROVIDERS: Family Provider Internal Medicine; PCP Family Medicine; Referring Provider Family Medicine; Visit Provider Family Medicine
DX: Z13.820 Encounter for screening for osteoporosis (principal); M85.851 Other specified disorders of bone density and structure, right thigh; Z78.0 Asymptomatic menopausal state; Z92.23 Personal history of estrogen therapy; Z90.710 Acquired absence of both cervix and uterus
CPT/HCPCS: 77080; 77081

== ENCOUNTER 2022-10-14 10:43 | Emergency (ER) | payer OTHER, MEDICARE, SELFPAY ==
[2022-10-14] VITALS (18 sets, daily range): BP systolic 146–172; BP diastolic 65–82; PULSE 65–83; RESP 13–23; TEMP 36.6; O2SAT 92–100; BMI 31.4
[2022-10-14 11:09] LABS: Add Manual Diff / Slide Review NO; Basophils Absolute Auto 100 /uL (0-100); Basophils Percent Auto 0.3 % (0-2); Eosinophils Absolute Auto 0 /uL (0-450); Eosinophils Percent Auto 0.1 % (2-4); Hematocrit 35.5 % (36-46); Hemoglobin 11.9 g/dL (12.0-16.0); Lymphocytes Absolute Auto 2900 /uL (1100-4500); Lymphocytes Percent Auto 17.2 % (25-40); Mean Corpuscular HGB Conc 33.5 % (30-36); Mean Corpuscular Hemoglobin 29.3 PG (26-34); Mean Corpuscular Volume 87.3 fL (80-100); Monocytes Absolute Auto 1000 /uL (0-900); Neutrophils Absolute Auto 13000 /uL (1500-7000); Neutrophils Percent Auto 76.4 % (50-75); Platelet Count 171 X10^3/uL (150-400); Red Blood Cell Count 4.06 X10^6/uL (4.0-5.2); Red Cell Distribution Width 16.6 % (11.6-14.8)
[2022-10-14 11:14] LABS: INR 0.9 (0.9-1.3); Prothrombin Time 10.2 SECONDS (10.1-12.7)
[2022-10-14 11:17] LABS: PTT Partial Thromboplastin Tim 28 SECONDS (26-36)
[2022-10-14 11:18] LABS: Alanine Aminotransferase 26 IU/L (<35); Albumin 3.7 g/dL (3.5-5.0); Albumin Globulin Ratio 1.5 (1.0-2.8); Alkaline Phosphatase 38 U/L (38-126); Aspartate Aminotransferase 24 IU/L (14-36); BUN Creatinine Ratio 25.6 (6-22); Bilirubin Total 0.6 mg/dL (0.2-1.3); Blood Urea Nitrogen 23 mg/dL (7-17); Calcium 9.1 mg/dL (8.4-10.2); Carbon Dioxide 32 mmol/L (22-32); Chloride 100 mmol/L (98-107); Estimated Glomerular Filt Rate > 60 mL/min (>60); Globulin 2.5 g/dL (1.7-4.1); Glucose 87 mg/dL (80-110); HEMOLYSIS < 15 (0-50); Potassium 3.8 mmol/L (3.4-5.1); Sodium 138 mmol/L (137-145); Total Protein 6.2 g/dL (6.3-8.2)
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
[2022-10-14] MEDS: methylPREDNISolone 125 MG/2 ML VIAL IV (13:27)
[2022-10-14] MEDS: diphenhydrAMINE 50 MG/ML VIAL IV (13:27)
[2022-10-14 13:37] LABS: Lactate (Lactic Acid) 1.5 mmol/L (0.7-2.1)
[2022-10-14 13:56] LABS: Procalcitonin 0.05 ng/mL (<0.5)
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
--- NOTE | 2022-10-14 14:27 | PC.NURSE ---
Patient has returned from CT imaging with iodine contrast. Patient was up to the commode with assistance to empty her bladder and is back in bed now. Patient denies any swelling, dizziness, states she is sleepy and would like to rest. Vital signs are stable, will continue to monitor.
== END 2022-10-14 16:10 | disposition home or self-care (01) ==
PROVIDERS: Emergency Provider Emergency Medicine; Family Provider Internal Medicine; PCP Family Medicine
DX: S22.42XA Multiple fractures of ribs, left side, initial encounter for closed fracture (principal); S30.1XXA Contusion of abdominal wall, initial encounter; S22.21XA Fracture of manubrium, initial encounter for closed fracture; V89.2XXA Person injured in unspecified motor-vehicle accident, traffic, initial encounter
CPT/HCPCS: 36415; 71260; 74177; 80053; 81003; 83605; 84145; 85025; 85610; 85730; 87040; 96374; 96375; 99284; J1200; J2930; Q9967

== ENCOUNTER → 2023-03-12 07:53 | Outpatient (CLI) | payer MEDICARE, SELFPAY ==
--- NOTE | 2023-03-12 | DI.ECHO.S_ITS ---
[facility]---------+ [facility] +---------+ : : [address] : : : : [id number] : : : : Phone: [phone]+ Echocardiogram Report + + :Name: CARIN FIELDS Study Date: 03/12/2023 Height: 61.5 in: :[facility] ReadingLocation: Weight: 160 lb : : Gender: Female BSA: 1.7 m2 : :: 1935 Age: 88 yrs BP: 150/80 mmHg: :Reason For Study: EDEMA : : Performed By: Kayli Frias : :Referring: JACKY ALCOCER : + + Interpretation Summary The left ventricle is normal in size. Left ventricular ejection fraction is estimated to be 70 +/- 5%. No significant LV outflow tract obstruction. Previous LVEF 60 to 65%. The right ventricle is normal in size and function. Mild MR. There is mild tricuspid regurgitation. Compared to the prior echo exam, there has been no change in TR severity. The right ventricular systolic pressure is estimated to be at least 25 mmHg based on an estimated right atrial pressure of 3 mm Hg. There is aortic root sclerosis/calcification. The ascending aorta is mildly enlarged. 3.7 cm in diameter. Previously 3.8 cm. Procedure: A two-dimensional transthoracic echocardiogram with color flow and Doppler was performed. The study quality was technically adequate. Comparison is made with the echocardiogram of 05/02/2019. The patient was in normal sinus rhythm during the exam. Left Ventricle: The left ventricle is normal in size. Proximal septal thickening is noted. There is no echo evidence for significant left ventricular outflow tract obstruction. There is no thrombus. Left ventricular ejection fraction is estimated to be 70 +/- 5%. There are no focal wall motion abnormalities. Diastolic parameters suggest a relaxation abnormality of the left ventricle, consistent with probable normal filling pressures. Right Ventricle: The right ventricle is normal in size and function. Atria: The left atrium is mildly dilated. There has been no significant change since the previous study. The right atrium is mildly dilated. There is no Doppler evidence for an interatrial shunt. Mitral Valve: There is mild mitral annular calcification. There is systolic anterior motion of the chordal apparatus. The mitral valve chordae are thickened and/or calcified. Redundant elongated chordae are noted. The mitral valve mean gradient is 2.45 mmHg. There is mild mitral regurgitation. Aortic Valve: The aortic valve is trileaflet. The aortic valve is mildly calcified. There is no aortic valve stenosis. No aortic regurgitation is present. Tricuspid Valve: The tricuspid valve is normal. There is mild tricuspid regurgitation. The right ventricular systolic pressure is estimated to be at least 25 mmHg based on an estimated right atrial pressure of 3 mm Hg. Compared to the prior echo exam, there has been no change in TR severity. Pulmonic Valve: The pulmonic valve leaflets are thin and pliable; valve motion is normal. There is mild pulmonic regurgitation. Great Vessels: The aortic root is normal size. There is aortic root sclerosis/calcification. The ascending aorta is mildly enlarged. The aortic arch is normal in size. The pulmonary artery is normal size. The IVC is of normal diameter and collapses greater than 50% with a sniff. This suggests a low right atrial pressure of 3 mm Hg. Pericardium/ Pleura There is no pericardial effusion. There is no pleural effusion. MMode/2D Measurements & Calculations LVIDd: 4.0 cm LVOT diam: 2.1 cm LVIDs: 2.6 cm Ao root diam: 3.2 cm FS: 35.6 % asc Aorta Diam: 3.7 cm IVSd: 0.64 cm Ao Arch Diam (Prox Trans): 2.1 cm LVPWd: 0.83 cm LV thakur. diameter/BSA (cm/m^2): 2.3 LV sys. diameter/BSA (cm/m^2): 1.5 LA A2 area: 19.5 cm2 RA long axis: 5.8 cm LA A4 area: 18.4 cm2 RA area: 21.2 cm2 LA length (vol): 5.1 cm RA vol: 65.6 ml LA vol: 59.3 ml RA : 38.0 ml/m2 LA vol index: 34.3 ml/m2 RVD1 (basal): 3.3 cm TAPSE: 1.8 cm Doppler Measurements & Calculations Ao V2 max: 149.9 cm/sec LVOT Max Silver: 133.6 cm/sec Ao V2 mean: 109.4 cm/sec LV V1 max P.1 mmHg Ao max P.0 mmHg LV V1 VTI: 29.3 cm Ao mean P.1 mmHg RAJI(I,D): 3.3 cm2 Ao V2 VTI: 29.7 cm RAJI(V,D): 3.0 cm2 sev ratio: 0.99 RAJI indexed to BSA (cm^2/m^2): 1.9 MV E max silver: 48.6 cm/sec TR max silver: 234.6 cm/sec MV A max silver: 72.3 cm/sec TR max P.0 mmHg MV E/A: 0.67 Med Peak E' Silver: 3.9 cm/sec E/E' med: 12.5 Lat Peak E' Silver: 7.1 cm/sec E/E' lat: 6.9 E/e' average: 9.7 MV P1/2t: 68.8 msec MVA(VTI): 3.4 cm2 MV V2 mean: 75.5 cm/sec MV P1/2t max silver: 49.6 cm/sec MV mean P.4 mmHg MVA(P1/2t): 3.2 cm2 MV V2 VTI: 28.5 cm SV(LVOT): 97.4 ml Reading Physician:04:59 PM
== END ==
PROVIDERS: Family Provider Internal Medicine; PCP Family Medicine; Referring Provider Internal Medicine Cardiovascular Disease; Visit Provider Internal Medicine Cardiovascular Disease
DX: R60.0 Localized edema (principal); I08.1 Rheumatic disorders of both mitral and tricuspid valves; I77.89 Other specified disorders of arteries and arterioles
CPT/HCPCS: 93306

== ENCOUNTER → 2023-04-19 15:18 | Outpatient (CLI) | payer SELFPAY ==
[2023-04-19 16:30] LABS: Add Manual Diff / Slide Review NO; Basophils Absolute Auto 100 /uL (0-100); Basophils Percent Auto 0.6 % (0-2); Eosinophils Absolute Auto 200 /uL (0-450); Eosinophils Percent Auto 1.6 % (2-4); Hematocrit 30.9 % (36-46); Hemoglobin 10.7 g/dL (12.0-16.0); Lymphocytes Absolute Auto 2500 /uL (1100-4500); Lymphocytes Percent Auto 25.3 % (25-40); Mean Corpuscular HGB Conc 34.6 % (30-36); Mean Corpuscular Hemoglobin 28.4 PG (26-34); Mean Corpuscular Volume 82.1 fL (80-100); Monocytes Absolute Auto 700 /uL (0-900); Monocytes Percent Auto 7.2 % (3-14); Neutrophils Absolute Auto 6400 /uL (1500-7000); Neutrophils Percent Auto 65.3 % (50-75); Platelet Count 394 X10^3/uL (150-400); Red Blood Cell Count 3.76 X10^6/uL (4.0-5.2); Red Cell Distribution Width 14.4 % (11.6-14.8); White Blood Cell Count 9.8 X10^3/uL (4.5-11.0)
[2023-04-19 17:00] LABS: Alanine Aminotransferase 33 IU/L (<35); Albumin 3.8 g/dL (3.5-5.0); Albumin Globulin Ratio 1.4 (1.0-2.8); Alkaline Phosphatase 56 U/L (38-126); Aspartate Aminotransferase 39 IU/L (14-36); BUN Creatinine Ratio 29.1 (6-22); Bilirubin Total 0.6 mg/dL (0.2-1.3); Blood Urea Nitrogen 25 mg/dL (7-17); Calcium 9.1 mg/dL (8.4-10.2); Carbon Dioxide 29 mmol/L (22-32); Chloride 89 mmol/L (98-107); Estimated Glomerular Filt Rate > 60 mL/min (>60); Globulin 2.8 g/dL (1.7-4.1); Glucose 108 mg/dL (80-110); HEMOLYSIS < 15 (0-50); Potassium 4.1 mmol/L (3.4-5.1); Sodium 124 mmol/L (137-145); Total Protein 6.6 g/dL (6.3-8.2)
== END ==
PROVIDERS: Family Provider Internal Medicine; PCP Family Medicine; Referring Provider Internal Medicine; Visit Provider Internal Medicine
DX: I10 Essential (primary) hypertension (principal); I47.10 Supraventricular tachycardia, unspecified
CPT/HCPCS: 36415; 80053; 85025

== ENCOUNTER → 2023-05-25 14:21 | Outpatient (CLI) | payer MEDICARE, SELFPAY ==
[2023-05-25 15:15] LABS: Add Manual Diff / Slide Review NO; Basophils Absolute Auto 0 /uL (0-100); Basophils Percent Auto 0.5 % (0-2); Eosinophils Absolute Auto 100 /uL (0-450); Eosinophils Percent Auto 1.2 % (2-4); Hematocrit 33.5 % (36-46); Hemoglobin 11.3 g/dL (12.0-16.0); Lymphocytes Absolute Auto 2800 /uL (1100-4500); Lymphocytes Percent Auto 33.3 % (25-40); Mean Corpuscular HGB Conc 33.7 % (30-36); Mean Corpuscular Hemoglobin 28.5 PG (26-34); Mean Corpuscular Volume 84.5 fL (80-100); Monocytes Absolute Auto 700 /uL (0-900); Monocytes Percent Auto 8.6 % (3-14); Neutrophils Absolute Auto 4800 /uL (1500-7000); Neutrophils Percent Auto 56.4 % (50-75); Platelet Count 218 X10^3/uL (150-400); Red Blood Cell Count 3.96 X10^6/uL (4.0-5.2); White Blood Cell Count 8.5 X10^3/uL (4.5-11.0)
[2023-05-25 15:34] LABS: BUN Creatinine Ratio 19.7 (6-22); Blood Urea Nitrogen 26 mg/dL (7-17); Calcium 9.9 mg/dL (8.4-10.2); Carbon Dioxide 30 mmol/L (22-32); Chloride 101 mmol/L (98-107); Estimated Glomerular Filt Rate 39 mL/min (>60); Glucose 91 mg/dL (80-110); HEMOLYSIS < 15 (0-50); Potassium 4.8 mmol/L (3.4-5.1); Sodium 138 mmol/L (137-145)
== END ==
LOC: LAB 14:21
PROVIDERS: Family Provider Internal Medicine; PCP Family Medicine; Referring Provider Family Medicine; Visit Provider Family Medicine
DX: D64.9 Anemia, unspecified (principal); E87.1 Hypo-osmolality and hyponatremia
CPT/HCPCS: 36415; 80048; 85025

== ENCOUNTER → 2023-12-17 14:54 | Outpatient (CLI) | payer MEDICARE, SELFPAY ==
[2023-12-17 15:33] LABS: Add Manual Diff / Slide Review NO; Basophils Absolute Auto 0 /uL (0-100); Basophils Percent Auto 0.5 % (0-2); Eosinophils Absolute Auto 200 /uL (0-450); Eosinophils Percent Auto 1.7 % (2-4); Hematocrit 34.9 % (36-46); Lymphocytes Absolute Auto 2900 /uL (1100-4500); Lymphocytes Percent Auto 32.5 % (25-40); Mean Corpuscular HGB Conc 34.4 % (30-36); Mean Corpuscular Hemoglobin 29.2 PG (26-34); Mean Corpuscular Volume 84.8 fL (80-100); Monocytes Absolute Auto 800 /uL (0-900); Monocytes Percent Auto 8.5 % (3-14); Neutrophils Absolute Auto 5000 /uL (1500-7000); Neutrophils Percent Auto 56.8 % (50-75); Platelet Count 225 X10^3/uL (150-400); Red Blood Cell Count 4.12 X10^6/uL (4.0-5.2); White Blood Cell Count 8.8 X10^3/uL (4.5-11.0)
[2023-12-17 16:02] LABS: Alanine Aminotransferase 15 IU/L (<35); Albumin 4.3 g/dL (3.5-5.0); Albumin Globulin Ratio 1.7 (1.0-2.8); Alkaline Phosphatase 48 U/L (38-126); Aspartate Aminotransferase 29 IU/L (14-36); Bilirubin Total 0.5 mg/dL (0.2-1.3); Blood Urea Nitrogen 24 mg/dL (7-17); Calcium 9.2 mg/dL (8.4-10.2); Carbon Dioxide 29 mmol/L (22-32); Chloride 98 mmol/L (98-107); Erythrocyte Sedimentation Rate 33 MM/HR (0-20); Estimated Glomerular Filt Rate 49 mL/min (>60); Globulin 2.6 g/dL (1.7-4.1); Glucose 101 mg/dL (80-110); HEMOLYSIS < 15 (0-50); Sodium 132 mmol/L (137-145); Total Protein 6.9 g/dL (6.3-8.2)
[2023-12-17 16:05] LABS: High Sensitivity CRP - Cardiac 2.1 mg/L (1.0-3.0)
== END ==
PROVIDERS: Family Provider Internal Medicine; PCP Family Medicine; Referring Provider Ophthalmology; Visit Provider Ophthalmology
DX: M31.5 Giant cell arteritis with polymyalgia rheumatica (principal); H57.11 Ocular pain, right eye
CPT/HCPCS: 36415; 80053; 85025; 85651; 86140

== ENCOUNTER → 2024-01-26 13:18 | Outpatient (CLI) | payer MEDICARE, SELFPAY ==
--- NOTE | 2024-01-26 13:20 | DI.MRI.S_ITS ---
PROCEDURE: MR HEAD/BRAIN WO/W CON INDICATIONS: Rt eye pain. ? trigeminal neuralgia TECHNIQUE: Noncontrast sagittal T1 spin echo, axial T2 fast spin echo, axial FLAIR, axial gradient echo, axial diffusion and ADC through the brain. Axial/sagittal/coronal 3-D CISS, thin-slice axial T1 spin echo with fat saturation through the skull base. After the administration of contrast, axial and coronal thin-slice T1 spin echo with fat saturation through the skull base, axial and coronal and sagittal T1 spin echo with fat saturation through the brain. COMPARISON: [facility], CT, CT HEAD WITHOUT CONTRAST, 04/03/2023, 18:50. FINDINGS: Image quality: Excellent. Cerebellopontine angle/cranial nerves: Cerebellopontine angles unremarkable. Visualized cranial nerves demonstrate no areas of abnormal enhancement, signal or mass lesion. CSF spaces: Ventricles are normal in size and shape. No extra-axial fluid collections. Basal cisterns are patent. Brain: No intracranial bleeds or mass effects. No abnormal intracranial enhancement. Diffusion weighted images show no acute ischemic insults. Guerrero-white matter interface is intact. Brainstem is normal. Normal intravascular flow voids are present. Atrophy and chronic microvascular ischemic changes are present. Skull and face: Calvarial marrow signal is normal. Orbits appear normal. Sinuses: Sinuses and mastoids appear clear. IMPRESSION: 1. No acute intracranial process. 2. Moderate atrophy and chronic microvascular ischemic changes. 3. Cerebellopontine angle as well as visualized cranial nerves demonstrate no areas of abnormal signal, enhancement or mass lesion. Dictated by: Kia Orosco M.D. on 01/26/2024 at 17:22 Approved by: Kia Orosco M.D. on 01/26/2024 at 17:24
== END ==
PROVIDERS: Family Provider Internal Medicine; PCP Family Medicine; Referring Provider Family Medicine; Visit Provider Family Medicine
DX: G50.0 Trigeminal neuralgia (principal); H57.11 Ocular pain, right eye
CPT/HCPCS: 70553; A9579

== ENCOUNTER → 2024-05-09 11:34 | Outpatient (CLI) | payer MEDICARE, SELFPAY ==
[2024-05-09 12:46] LABS: BUN Creatinine Ratio 20.8 (6-22); Blood Urea Nitrogen 21 mg/dL (7-17); Calcium 9.5 mg/dL (8.4-10.2); Carbon Dioxide 30 mmol/L (22-32); Chloride 105 mmol/L (98-107); Estimated Glomerular Filt Rate 54 mL/min (>60); Glucose 76 mg/dL (80-110); HEMOLYSIS < 15 (0-50); Potassium 4.2 mmol/L (3.4-5.1); Sodium 139 mmol/L (137-145)
== END ==
PROVIDERS: Family Provider Internal Medicine; PCP Family Medicine; Referring Provider Family Medicine; Visit Provider Family Medicine
DX: I10 Essential (primary) hypertension (principal); N28.9 Disorder of kidney and ureter, unspecified
CPT/HCPCS: 36415; 80048

== ENCOUNTER 2024-10-08 18:36 | Emergency (ER) | payer MEDICARE, SELFPAY ==
[2024-10-08] VITALS (10 sets, daily range): BP systolic 142–196; BP diastolic 68–81; PULSE 60–75; RESP 17–21; TEMP 37; O2SAT 96–99; BMI 29.6
--- NOTE | 2024-10-08 19:24 | ED.GIBLEED ---
HPI - GI Bleed General Chief complaint: GI Bleed Stated complaint: Groin Pain Time Seen by Provider: 10/08/24 19:14 Mode of arrival: Ambulatory History of Present Illness HPI Narrative: 89-year-old female history of appendectomy, cholecystectomy, hysterectomy, atrial fibrillation on aspirin, hypothyroidism presents with 2 episodes of median colored Bennie-Aid appearance in her stool and in the toilet today along with abdominal cramping. She had a colonoscopy in the remote past but does not recall any significant pathology. She denies nausea vomiting constipation or straining to have a bowel movement. Patient denies chest pain, shortness of breath, kidney stone, kidney infection, or UTI symptoms. Other than what is stated 14 point review of system is negative. Related Data Home Medications Medication Instructions Recorded Confirmed cholecalciferol (vitamin D3) 25 2,000 unit PO QDAY ##0 12/09/16 08/28/24 mcg (1,000 unit) tablet (Vitamin D3) aspirin 81 mg tablet,delayed 81 mg PO DAILY 08/28/22 08/28/24 release (Adult Low Dose Aspirin) magnesium oxide 400 mg (241.3 mg 400 mg PO DAILY 04/23/23 08/28/24 magnesium) tablet potassium chloride 10 mEq 10 meq PO DAILY 04/23/23 08/28/24 tablet,extended release(part/cryst) Previous Rx's Medication Instructions Recorded Disabled parking permit #1 ea 06/17/22 nitroglycerin 0.4 mg sublingual 0.4 mg sublingual ONCE PRN chest 03/16/23 tablet (Nitrostat) pain #30 tabs chlorthalidone 25 mg tablet 12.5 mg (1/2 x 25 mg) PO DAILY 04/23/23 blood pressure #45 tabs lidocaine 5 % topical patch 1 patch topical DAILY PRN back 07/19/23 (Lidoderm) pain #30 ea albuterol sulfate 90 mcg/actuation 1 - 2 inh inhalation Q4-6H PRN 09/14/23 aerosol inhaler shortness of breath or wheezing #8.5 grams pantoprazole 20 mg tablet,delayed 20 mg PO DAILY #90 tabs 01/12/24 release rosuvastatin 5 mg tablet 5 mg PO DAILY #90 tabs 02/21/24 levothyroxine 75 mcg tablet 75 mcg PO 0600 #90 tabs 03/27/24 (Synthroid) metoprolol succinate 25 mg 25 mg PO DAILY #90 tabs 03/27/24 tablet,extended release 24 hr sertraline 100 mg tablet (Zoloft) 100 mg PO DAILY #90 tabs 03/27/24 therapeutic massage #1 ea 05/09/24 diltiazem HCl 120 mg 120 mg PO DAILY #90 tabs 05/11/24 tablet,extended release 24 hr (Cardizem LA) conjugated estrogens 0.625 mg/gram 0.5 mg topical 2XW #30 grams 06/29/24 vaginal cream (Premarin) Allergies Allergy/AdvReac Type Severity Reaction Status Date / Time codeine AdvReac Severe RAPID Verified 08/28/24 14:33 HEARTRATE/CHEST PAIN iodine AdvReac Severe FLUSHED, Verified 08/28/24 14:33 HOT ciprofloxacin [From CIPRO] AdvReac Unknown NAUSEA/VOMI Verified 08/28/24 14:33 TING Review of Systems Review of Systems ROS Unobtainable: All systems reviewed & are unremarkable except as noted in HPI and below Patient History Medical History (Updated 10/08/24 @ 22:34 by Josr Quinn DO) CKD (chronic kidney disease) stage 3, GFR 30-59 ml/min Trigger finger of both hands Chronic fatigue, unspecified Chronic neck pain Chronic low back pain Encounter for subsequent annual wellness visit (AWV) in Medicare patient IPMN (intraductal papillary mucinous neoplasm) Temporal arteritis Benign essential HTN Wears glasses Melanoma Rheumatoid arthritis Osteoarthritis Depression (~2014) Migraines (~1949) Headache (~1949) Disease of spine Fractures (~1949) Mumps Measles Chicken pox Anemia (~195) Vertigo (~2009) Tinnitus (~1999) Hearing loss (~2019) Cataracts, bilateral Ovarian cyst (~1983) History of urinary incontinence Hemorrhoid GERD (gastroesophageal reflux disease) Colon polyps Colitis Hypothyroidism Skin cancer (~2015) Giant cell arteritis Hyperlipidemia Hypertension CAD (coronary artery disease) Right sided weakness GI bleed CVA (cerebral vascular accident) (~2019) Small bowel obstruction Family History Father History of heart disease Mother Mental health problem History of heart disease Sister Alzheimer's disease Mental health problem Grandfather Hyperlipidemia Grandmother Diabetes mellitus Grandfather Mental health problem Grandmother Cancer Social History Smoking Status: Never smoker Smoking Status: Never smoker alcohol intake frequency: holidays/special occasions only Exam Narrative Exam Narrative: GENERAL: [89] year old patient appears stated age. Well-developed patient, in mild distress. HEAD: Atraumatic. Normocephalic. EYES: Pupils equal round and reactive. Extraocular motions intact. No scleral icterus. No injection or drainage. ENT: Nose without bleeding, purulent drainage. Throat without erythema, tonsillar hypertrophy or exudate. Airway patent. NECK: Trachea midline. Non tender CARDIOVASCULAR: Regular rate and rhythm without murmurs, gallops, or rubs. RESPIRATORY: Clear to auscultation. Breath sounds equal bilaterally. No wheezes, rales, or rhonchi. GASTROINTESTINAL: Abdomen soft, non-tender, nondistended. Rectal Exam: NO external hemorrhoid Guiac positive EXTREMITIES: No edema or joint tenderness. BACK: Nontender without deformity or crepitance. No flank tenderness. NEURO: AOx3. SKIN: No rash or erythema of visible areas Initial Vital Signs Initial Vital Signs: Vital Signs Temperature 98.6 F 10/08/24 18:52 Pulse Rate 60 10/08/24 18:52 Respiratory Rate 20 10/08/24 18:52 Blood Pressure 142/68 H 10/08/24 18:52 Pulse Oximetry 99 10/08/24 18:52 Oxygen Delivery Method Room Air 10/08/24 18:52 Course Orders Ordered: ED Orders 10/08/24 19:12 Complete Blood Count AUTO DIFF Stat Comprehensive Metabolic Panel Stat PTT Partial Thromboplastin Ganesh Stat Prothrombin Time INR Stat Type and Screen Stat 10/08/24 19:32 CT angio Abd/Pel GI Bleed Stat 10/08/24 19:40 Urine Microscopic Stat Ondansetron HCl (Ondansetron 4 Mg/2 Ml Inj) 4 mg IV NOW PRN PRN Reason: Nausea And Vomiting Ondansetron HCl (Ondansetron 4 Mg Odt) 4 mg PO NOW PRN PRN Reason: Nausea And Vomiting Vital Signs Vital signs: Vital Signs - 8 hr 10/08/24 18:52 10/08/24 20:31 10/08/24 20:33 Temperature 98.6 F Pulse Rate 60 62 Respiratory Rate 20 Blood Pressure 142/68 H 168/73 H Pulse Oximetry 99 97 Oxygen Delivery Method Room Air 10/08/24 20:33 10/08/24 21:00 10/08/24 21:00 Temperature Pulse Rate 69 62 Respiratory Rate Blood Pressure 195/81 H Pulse Oximetry 99 96 Oxygen Delivery Method 10/08/24 21:30 10/08/24 21:31 10/08/24 21:31 Temperature Pulse Rate 61 62 Respiratory Rate 18 Blood Pressure 195/81 H Pulse Oximetry 98 98 Oxygen Delivery Method MDM - GI Bleed Lab Data 10/08/24 19:12 10/08/24 19:12 Labs: Lab Results 10/08/24 10/08/24 Range/Units 19:12 19:40 WBC 9.3 (4.5-11.0) X10^3/uL RBC 3.65 L (4.0-5.2) X10^6/uL Hgb 10.6 L (12.0-16.0) g/dL Hct 31.7 L (36-46) % MCV 86.7 (80-100) fL MCH 28.9 (26-34) PG MCHC 33.4 (30-36) % RDW 13.4 (11.6-14.8) % Plt Count 195 (150-400) X10^3/uL Neut % (Auto) 64.7 (50-75) % Lymph % (Auto) 24.8 L (25-40) % [place] % (Auto) 7.0 (3-14) % Eos % (Auto) 3.0 (2-4) % Baso % (Auto) 0.5 (0-2) % Neut # (Auto) 6000 (7635-3836) /uL Lymph # (Auto) 2300 (9992-6476) /uL [place] # (Auto) 700 (0-900) /uL Eos # (Auto) 300 (0-450) /uL Baso # (Auto) 0 (0-100) /uL PT 10.1 (9.4-12.5) SECONDS INR 0.9 (0.9-1.3) APTT 36 (25.1-36.5) SECONDS Sodium 141 (137-145) mmol/L Potassium 4.4 (3.4-5.1) mmol/L Chloride 108 H (98-107) mmol/L Carbon Dioxide 27 (22-32) mmol/L BUN 18 H (7-17) mg/dL Creatinine 0.89 (0.52-1.04) mg/dL Estimated GFR > 60 (>60) mL/min BUN/Creatinine Ratio 20.2 (6-22) Glucose 100 H (70-99) mg/dL Calcium 9.6 (8.4-10.2) mg/dL Total Bilirubin 0.3 (0.2-1.3) mg/dL AST 23 (14-36) IU/L ALT 12 (<35) IU/L Alkaline Phosphatase 39 (38-126) U/L Total Protein 6.7 (6.3-8.2) g/dL Albumin 4.2 (3.5-5.0) g/dL Globulin 2.5 (1.7-4.1) g/dL Albumin/Globulin Ratio 1.7 (1.0-2.8) Urine RBC 1-5/hpf (0-5/HPF) Urine WBC None seen (0-5/HPF) Ur Squamous Epith Cells 5-10 /hpf H (0-5/HPF) Urine Bacteria Moderate (10-30) H (None) Ur Culture Indicated? Cult not indicated Vol Urine Centrifuged 10ml (spun) Blood Type A Positive Antibody Screen Negative Point of Care Testing Stool Occult Blood Positive Urine Dip Bedside Urine Glucose Negative Bedside Urine Bilirubin - Negative Bedside Urine Ketone - Negative Urine Specific [place] 1.02 Bedside Urine Occult Blood ++ Bedside Urine pH 6 Bedside Urine Protein - Negative Bedside Urine Urobilinogen - Negative Bedside Urine Nitrite - Negative Bedside Urine Leukocytes - Negative Esterase Imaging Data CT scan - abdomen/pelvis: Radiologist's Impression: [address] [address] [address] Scan Report Signed Patient: Lisa Aviles MR#: [id number] : 1935 Acct:[id number] Age/Sex: 89 / F Date of Service: 10/08/24 Loc: ED Accession Number: [id number] Procedure: CT angio Abd/Pel GI Bleed Ordering Provider: Josr Quinn D.O. PROCEDURE: CT ANGIO ABD/PEL GI BLEED INDICATIONS: gi bleed TECHNIQUE: After the administration of intravenous contrast, 2.5 mm thick sections acquired from the diaphragm to the symphysis. 10 mm maximum-intensity projection (MIP) reformats were then acquired. For radiation dose reduction, the following was used: automated exposure control. COMPARISON: None. FINDINGS: Image Quality: Diagnostic. Abdominal aorta: No aortic aneurysm or evidence of acute aortic syndrome. Mesenteric arteries: Patent without hemodynamically significant stenosis. Prominent internal hemorrhoids. Renal arteries: Patent without hemodynamically significant stenosis. OTHER: Lower Chest: No significant findings. Liver: No solid mass. Gallbladder: Absent. Biliary ducts: No biliary dilation. Pancreas: 3.9 x 2.5 cm cystic lesion in the pancreatic head containing a thin internal septations. Additional cystic lesions scattered throughout the pancreas. Spleen: Size is within normal limits. Adrenal Glands: No adrenal nodules. Kidneys and Ureters: No hydronephrosis. No solid mass. No complex renal cystic lesion which requires follow up. Stomach and Bowel: Normal colonic caliber, without significant wall thickening. Colonic diverticulosis without evidence of diverticulitis. Peritoneum: No abnormal intraperitoneal fluid. No free air. Ventral Wall: No hernia. Abdominal Nodes: No retroperitoneal or mesenteric adenopathy by size criteria. Vessels: Aorta and inferior vena cava are normal in size. PELVIS: Pelvic Organs: Unremarkable. Bladder: Unremarkable. Pelvic Nodes: No enlarged lymph nodes. Miscellaneous: No inguinal hernias are seen. Bones: No aggressive osseous abnormality. Degenerative disc disease of the lumbar spine. L3 kyphoplasty. IMPRESSION: No evidence of active GI hemorrhage. Prominent internal hemorrhoids. Colonic diverticulosis without evidence of diverticulitis. 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 Recommend further characterization with a nonemergent MRI with contrast given internal complexity (pancreatic mass protocol) unless performed in the past. Dictated by: Cheng Rivera M.D. on 10/08/2024 at 20:23 Approved by: Cheng Rivera M.D. on 10/08/2024 at 20:28 [facility] Narrative Medical decision making narrative: All lab work, vital signs, nurse triage note, medication list, previous ER visits and CT scan reviewed. Hemoglobin 10.6 no white count platelet [address] scans showed no evidence of active GI hemorrhage prominent internal hemorrhoids colonic diverticulosis without evidence of diverticulitis and multiple pancreatic cystic lesion largest measuring 3.9 x 2.5 cm that will need nonemergent MRI with contrast follow up. Differential diagnosis includes GI bleed ulcer perforation hemorrhoids. Keep hydrated and to return with new or worsening symptoms Discharge Plan Departure Patient Disposition: Home Clinical Impression: Internal bleeding hemorrhoids Instructions: DI for Hemorrhoids Activity Restrictions/Additional Instructions: Return with new or worsening symptoms. Please follow up with your family doctor regarding multiple pancreatic cystic lesion that will need nonemergent MRI with contrast. Avoid aspirin leave naproxen ibuprofen or Motrin. Keep hydrated. Prescriptions: No Action cholecalciferol (vitamin D3) [Vitamin D3] 1,000 UNIT tablet 2,000 unit PO QDAY Qty: 0 pantoprazole 20 mg tablet,delayed release (DR/EC) 20 mg PO DAILY Qty: 90 3RF rosuvastatin 5 mg tablet 5 mg PO DAILY Qty: 90 3RF levothyroxine [Synthroid] 75 mcg tablet 75 mcg PO 0600 Qty: 90 3RF metoprolol succinate 25 mg tablet extended release 24 hr 25 mg PO DAILY Qty: 90 3RF sertraline [Zoloft] 100 mg tablet 100 mg PO DAILY Qty: 90 3RF Premarin 0.625 mg/gram cream 0.5 mg topical 2XW Qty: 30 3RF nitroglycerin [Nitrostat] 0.4 mg tablet, sublingual 0.4 mg sublingual ONCE PRN (Reason: chest pain) Qty: 30 11RF Rx Instructions: as a single dose; administer 5-10 minutes before situation known to precipitate angina attack lidocaine [Lidoderm] 5 % adhesive patch,medicated 1 patch topical DAILY PRN (Reason: back pain) Qty: 30 11RF Rx Instructions: leave on most painful area for up to 12 hrs (DME) Disabled parking permit See Rx Instructions .ROUTE .MEDSUPPLY Qty: 1 0RF Rx Instructions: I find this patient to be medically disabled and qualified for disabled parking as indicated, and signed, on the accompanying disabled parking application for individuals. aspirin [Adult Low Dose Aspirin] 81 mg tablet,delayed release (DR/EC) 81 mg PO DAILY potassium chloride 10 mEq tablet,ER particles/crystals 10 meq PO DAILY magnesium oxide 400 mg (241.3 mg magnesium) tablet 400 mg PO DAILY chlorthalidone 25 mg tablet 12.5 mg PO DAILY Qty: 45 3RF Hold Instructions: kidneys albuterol sulfate 90 mcg/actuation HFA aerosol inhaler 1 - 2 inh inhalation Q4-6H PRN (Reason: shortness of breath or wheezing) Qty: 8.5 11RF (DME) therapeutic massage See Rx Instructions .Route .MEDSUPPLY Qty: 1 0RF Rx Instructions: once a week as needed Cardizem LA 120 mg tablet extended release 24 hr 120 mg PO DAILY Qty: 90 3RF Referrals: Akhil Scruggs DO [Primary Care Provider] - Stand Alone Forms: Patient Portal/API/Survey
[2024-10-08 19:32] LABS: Add Manual Diff / Slide Review NO; Basophils Absolute Auto 0 /uL (0-100); Basophils Percent Auto 0.5 % (0-2); Eosinophils Absolute Auto 300 /uL (0-450); Hematocrit 31.7 % (36-46); Hemoglobin 10.6 g/dL (12.0-16.0); Lymphocytes Absolute Auto 2300 /uL (1100-4500); Lymphocytes Percent Auto 24.8 % (25-40); Mean Corpuscular HGB Conc 33.4 % (30-36); Mean Corpuscular Hemoglobin 28.9 PG (26-34); Mean Corpuscular Volume 86.7 fL (80-100); Monocytes Absolute Auto 700 /uL (0-900); Neutrophils Absolute Auto 6000 /uL (1500-7000); Neutrophils Percent Auto 64.7 % (50-75); Platelet Count 195 X10^3/uL (150-400); Red Blood Cell Count 3.65 X10^6/uL (4.0-5.2); Red Cell Distribution Width 13.4 % (11.6-14.8); White Blood Cell Count 9.3 X10^3/uL (4.5-11.0)
--- NOTE | 2024-10-08 19:32 | DI.CT.S_ITS ---
PROCEDURE: CT ANGIO ABD/PEL GI BLEED INDICATIONS: gi bleed TECHNIQUE: After the administration of intravenous contrast, 2.5 mm thick sections acquired from the diaphragm to the symphysis. 10 mm maximum-intensity projection (MIP) reformats were then acquired. For radiation dose reduction, the following was used: automated exposure control. COMPARISON: None. FINDINGS: Image Quality: Diagnostic. Abdominal aorta: No aortic aneurysm or evidence of acute aortic syndrome. Mesenteric arteries: Patent without hemodynamically significant stenosis. Prominent internal hemorrhoids. Renal arteries: Patent without hemodynamically significant stenosis. OTHER: Lower Chest: No significant findings. Liver: No solid mass. Gallbladder: Absent. Biliary ducts: No biliary dilation. Pancreas: 3.9 x 2.5 cm cystic lesion in the pancreatic head containing a thin internal septations. Additional cystic lesions scattered throughout the pancreas. Spleen: Size is within normal limits. Adrenal Glands: No adrenal nodules. Kidneys and Ureters: No hydronephrosis. No solid mass. No complex renal cystic lesion which requires follow up. Stomach and Bowel: Normal colonic caliber, without significant wall thickening. Colonic diverticulosis without evidence of diverticulitis. Peritoneum: No abnormal intraperitoneal fluid. No free air. Ventral Wall: No hernia. Abdominal Nodes: No retroperitoneal or mesenteric adenopathy by size criteria. Vessels: Aorta and inferior vena cava are normal in size. PELVIS: Pelvic Organs: Unremarkable. Bladder: Unremarkable. Pelvic Nodes: No enlarged lymph nodes. Miscellaneous: No inguinal hernias are seen. Bones: No aggressive osseous abnormality. Degenerative disc disease of the lumbar spine. L3 kyphoplasty. IMPRESSION: No evidence of active GI hemorrhage. Prominent internal hemorrhoids. Colonic diverticulosis without evidence of diverticulitis. 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 Recommend further characterization with a nonemergent MRI with contrast given internal complexity (pancreatic mass protocol) unless performed in the past. Dictated by: Cheng Rivera M.D. on 10/08/2024 at 20:23 Approved by: Cheng Rivera M.D. on 10/08/2024 at 20:28
[2024-10-08 19:39] LABS: INR 0.9 (0.9-1.3); Prothrombin Time 10.1 SECONDS (9.4-12.5)
[2024-10-08 19:42] LABS: PTT Partial Thromboplastin Tim 36 SECONDS (25.1-36.5)
[2024-10-08 19:45] LABS: Alanine Aminotransferase 12 IU/L (<35); Albumin 4.2 g/dL (3.5-5.0); Albumin Globulin Ratio 1.7 (1.0-2.8); Alkaline Phosphatase 39 U/L (38-126); Aspartate Aminotransferase 23 IU/L (14-36); BUN Creatinine Ratio 20.2 (6-22); Bilirubin Total 0.3 mg/dL (0.2-1.3); Blood Urea Nitrogen 18 mg/dL (7-17); Calcium 9.6 mg/dL (8.4-10.2); Carbon Dioxide 27 mmol/L (22-32); Chloride 108 mmol/L (98-107); Estimated Glomerular Filt Rate > 60 mL/min (>60); Globulin 2.5 g/dL (1.7-4.1); Glucose 100 mg/dL (70-99); HEMOLYSIS < 15 (0-50); Potassium 4.4 mmol/L (3.4-5.1); Sodium 141 mmol/L (137-145); Total Protein 6.7 g/dL (6.3-8.2)
[2024-10-08 22:02] LABS: Bacteria Urine Moderate (10-30); Culture Indicated Urine Cult Not Indicated; RBC Urine 1-5/HPF (0-5/HPF); Squamous Epithelial Cell Urine 5-10 /HPF (0-5/HPF); Urine Volume 10mL (spun); WBC Urine None Seen (0-5/HPF)
== END 2024-10-08 23:01 | disposition home or self-care (01) ==
PROVIDERS: Emergency Provider Family Medicine; Family Provider Internal Medicine; PCP Family Medicine
DX: K64.8 Other hemorrhoids (principal)
CPT/HCPCS: 36415; 74174; 80053; 81003; 81015; 82272; 85025; 85610; 85730; 86850; 86900; 86901; 99283; 99284; Q9967

== ENCOUNTER → 2024-10-25 16:37 | Outpatient (CLI) | payer MEDICARE, SELFPAY ==
--- NOTE | 2024-10-25 16:40 | DI.MRI.S_ITS ---
PROCEDURE: MR AB PANCREATIC/MRCP PROTOCOL INDICATIONS: eval pancreatic cysts TECHNIQUE: Coronal HASTE through the abdomen, axial 2-D FLASH in- and [id number], and breath-hold T2 FSE with fat saturation through the biliary system and pancreas. Oblique coronal and axial thin-slice HASTE, radial thick-slab HASTE centered on the extrahepatic bile ducts. Intravenous secretin: Not requested. COMPARISON: [facility], CT, CT ANGIO ABD/PEL GI BLEED, 10/08/2024, 19:42. [facility], CT, CT CHEST ABD PEL W CON, 10/14/2022, 14:08. FINDINGS: Image quality: [id number] motion artifact Lower chest: Small fat containing right Bochdalek's hernia. Lung bases appear unremarkable. Liver: Unremarkable Gallbladder and biliary system: Gallbladder is not seen. Mid CBD measures up to 7 mm, likely related to postsurgical state Pancreas: No ductal dilation. Many cystic lesions are seen throughout the pancreas, including multiple clustered cystic lesions at the tail. The largest is at the neck, measuring up to 4.4 x 3 cm, with thin enhancing septations. This is larger than 2022. Many other smaller cystic lesions are present Spleen: Nonenlarged Adrenals: No discrete nodules Kidneys: Large right renal cyst again seen. No definite enhancing renal lesion. Many smaller cysts are seen. No hydronephrosis. Vessels and lymph nodes: No enlarged lymph nodes by size criteria. No abdominal aortic aneurysm. Atherosclerotic calcifications are seen. Main portal vein appears patent. Bowel and peritoneum: No small bowel obstruction. Colonic diverticula are seen. Body wall: Unremarkable Bones: There are degenerative osseous changes. Lumbosacral fusion construct is present. IMPRESSION: Numerous pancreatic cystic lesions, the largest measuring up to 4.4 x 3 cm, slowly enlarging over multiple years with thin enhancing septations. 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 EUS/FNA is suggested. Other findings above. Dictated by: Loy Hampton M.D. on 10/27/2024 at 7:31 Approved by: Loy Hampton M.D. on 10/27/2024 at 7:43
== END ==
LOC: MRI 16:38
PROVIDERS: Family Provider Internal Medicine; PCP Family Medicine; Referring Provider Family Medicine; Visit Provider Family Medicine
DX: K86.2 Cyst of pancreas (principal); K44.9 Diaphragmatic hernia without obstruction or gangrene; N28.1 Cyst of kidney, acquired; I70.90 Unspecified atherosclerosis; Z98.1 Arthrodesis status
CPT/HCPCS: 74183; A9579

== ENCOUNTER → 2025-04-17 13:54 | Outpatient (CLI) | payer MEDICARE, SELFPAY ==
[2025-04-17 14:43] LABS: Hematocrit 31.5 % (36-46); Hemoglobin 10.8 g/dL (12.0-16.0); Mean Corpuscular HGB Conc 34.4 % (30-36); Mean Corpuscular Hemoglobin 29.4 PG (26-34); Mean Corpuscular Volume 85.7 fL (80-100); Platelet Count 198 X10^3/uL (150-400)
[2025-04-17 15:28] LABS: Blood Urea Nitrogen 23 mg/dL (7-17); Calcium 9.1 mg/dL (8.4-10.2); Carbon Dioxide 28 mmol/L (22-32); Chloride 106 mmol/L (98-107); Estimated Glomerular Filt Rate 58 mL/min (>60); Glucose 97 mg/dL (70-99); HEMOLYSIS < 15 (0-50); Potassium 4.2 mmol/L (3.4-5.1); Sodium 140 mmol/L (137-145)
[2025-04-17 15:56] LABS: TSH w/ Reflex to FT4 1.56 uIU/mL (0.47-4.68)
== END ==
PROVIDERS: Family Provider Internal Medicine; PCP Family Medicine; Referring Provider Family Medicine; Visit Provider Family Medicine
DX: E03.9 Hypothyroidism, unspecified (principal); I12.9 Hypertensive chronic kidney disease with stage 1 through stage 4 chronic kidney disease, or unspecified chronic kidney disease; N18.30 Chronic kidney disease, stage 3 unspecified
CPT/HCPCS: 36415; 80048; 84443; 85027